=== PATIENT | female | born 1935 | race Caucasian/White ===

== ENCOUNTER → 2016-08-29 | Outpatient (CLI) | payer MEDICARE ==
[~2016-08-29] MED LIST: ASPI-892 PO; ATOR20TA66 PO; ATR20T PO; CALC-172 PO; CELEXA PO; CEPH500C PO; CETI10TA17 PO; CIPR500T4 PO; CITA10TA70 PO; CITA20TA7 PO; ESTR0.755 PO; LACT1CAP62 PO; LOSA50TA36 PO; METR500T PO; MULT-874 PO; MULT1TAB69 PO; OMEG1CAP51 PO; SENN1TAB76 PO; TIMO10DR12 OU; WARF-47 PO; WARF4TAB PO; [UNRECOGNIZED DRUG - OTHER] PO
--- NOTE | 2016-08-29 16:20 | Diagnostic Imaging Report ---
Examination: DEXA scan. Indication: osteopenia Technique: Bone mineral density estimated based on dual energy radiography over the lumbar spine and femoral necks, was performed. Findings: The lumbar spine T-score is 1.1. This is 3.7% decreased density measurements compared to 02/21/2011. T score over the left femoral neck is -1.2. This is 6.7% decreased density measurements compared to 2010. The femoral neck density measurement is probably more accurate given the degenerative sclerotic changes in the lumbar spine. The right hip could not be evaluated due to prosthesis. IMPRESSION: Osteopenia. Dictated by: Dictated on workstation # [id number]
== END ==
LOC: RAD 09:25
PROVIDERS: ATTEND Family Medicine
DX: Z13.820 Encounter for screening for osteoporosis (principal); M85.88 Other specified disorders of bone density and structure, other site
CPT/HCPCS: 77080

== ENCOUNTER → 2016-12-17 | Outpatient (CLI) | payer MEDICARE, OTHER ==
[~2016-12-17] MED LIST changes: +HYDR-3454 PO
== END ==
LOC: CARD 08:42
PROVIDERS: ATTEND Physician Assistant
DX: I65.23 Occlusion and stenosis of bilateral carotid arteries (principal); R06.00 Dyspnea, unspecified; E78.2 Mixed hyperlipidemia; I26.99 Other pulmonary embolism without acute cor pulmonale
CPT/HCPCS: 93306

== ENCOUNTER → 2016-12-30 | Outpatient (CLI) | payer MEDICARE ==
[~2016-12-30] VITALS: Ht 170.2 cm; Wt 81.6 kg
[~2016-12-30] MED LIST changes: +REGADENOSON 0.4 MG/5 ML SYR (LEXISCAN) IV ONE
[2016-12-30] MEDS: CATHETER FLUSH 10 ML SYR IV PRN ×2 (08:26→09:26)
[2016-12-30 09:24] VITALS: BP 124/62
--- NOTE | 2016-12-31 09:42 | STRESS TEST ---
DATE OF SERVICE: 12/30/2016 LEXISCAN MYOVIEW STRESS TEST REFERRING PHYSICIAN: Dr. Mckeon. Baseline heart rate is 63. Baseline blood pressure 124/62. Baseline EKG is sinus rhythm with no ischemic changes. In summary, the patient received 10.32 mCi of technetium-99 Myoview and the resting images were obtained. Then, the patient received 0.4 mg of Lexiscan followed by 31.4 mCi of technetium-99 Myoview. Throughout the test, there were no EKG changes. The resting and stress images were reviewed and compared and the short axis, horizontal long axis, and vertical long axis views. Review of the images showed breast attenuation with typical female pattern. No significant ischemia or infarction was seen. SSS is 4, SDS 4, TID value 0.96. On the gated images, the left ventricle appeared to be normal size with normal contractility. Calculated ejection fraction 72%. CONCLUSION: 1. The patient tolerated Lexiscan well. 2. Breast attenuation with typical female pattern. No significant ischemia or infarction on SPECT images. 3. Normal left ventricular size with normal contractility. Calculated ejection fraction 72%. Job ID: [id number] DocumentID: [id number] Dictated Date: 12/30/2016 18:38:27 Mobile Product Manager Date: 12/31/2016 06:48:04 Dictated By: USAMA LYONS MD
== END ==
LOC: CARD 07:55
PROVIDERS: ATTEND Physician Assistant
DX: I65.23 Occlusion and stenosis of bilateral carotid arteries (principal); R06.00 Dyspnea, unspecified; E78.2 Mixed hyperlipidemia; I26.99 Other pulmonary embolism without acute cor pulmonale
CPT/HCPCS: 78452; 93017

== ENCOUNTER 2017-02-01 16:10 | Day surgery (SDC) | payer MEDICARE ==
[~2017-02-01] VITALS: Ht 170.2 cm; Wt 80.3 kg
[~2017-02-01 16:10] MED LIST changes: -HYDR-3454 PO; -REGADENOSON 0.4 MG/5 ML SYR (LEXISCAN) IV ONE
[2017-02-01 16:25] VITALS: BP 133/89
[2017-02-01] MEDS ORDERED: INFLUENZA TRIvalent 2017-2018 0.5 ML/45 MCG SYR IM ONE (16:45)
[2017-02-01] MEDS: LACTATED RINGERS 1,000 ML IV SCH (17:46)
--- NOTE | 2017-02-01 18:04 | History & Physicial ---
History of Present Illness History of Present Illness Reason for visit/HPI pain swelling and redness around the perianal region, of 2 days duration. Date of Admission Feb 01, 2017 at 4:10 pm Date Seen by Provider: Feb 01, 2017 Time Seen by Provider: 18:02 I consulted on this patient on 02/01/17 18:01 Attending Physician Ha Marie MD Admitting Physician Rebeca Mckeon MD Consult Allergies and Home Medications Allergies Coded Allergies: adhesive tape (Verified Adverse Reaction, Intermediate, 02/01/17) blisters Home Medications Atorvastatin Calcium 20 Mg Tablet, 20 MG PO HS, (Reported) Cetirizine HCl 10 Mg Tablet, 10 MG PO DAILY, (Reported) Citalopram Hydrobromide 20 Mg Tablet, 20 MG PO DAILY, (Reported) Losartan Potassium 50 Mg Tablet, 50 MG PO DAILY, (Reported) Multivitamin 1 Each Tablet, 1 TAB PO DAILY, (Reported) Timolol Maleate 10 Ml Drops, 1 DROP OU BID, (Reported) Warfarin Sodium 4 Mg Tablet, 4 MG PO SuTuTh, (Reported) Warfarin Sodium 2 Mg Tablet, 2 MG PO MoWeFrSa, (Reported) Past Gprnnku-Gzjvpz-Yooatw Hx Patient Social History Marrital Status: Employed/Student: retired Alcohol Use: Denies Use Recreational Drug Use: No Smoking Status: Never a Smoker 2nd Hand Smoke Exposure: No Physical Abuse Screen: No Sexual Abuse: No Recent Foreign Travel: No Contact w/other who traveled: No Recent Hopitalizations: Yes Recent Infectious Disease Expo: No Immunizations Up To Date Pediatric: No Date of Pneumonia Vaccine: Feb 02, 2011 Date of Influenza Vaccine: Feb 02, 2011 Seasonal Allergies Seasonal Allergies: No Surgeries Yes (right total hip replaced, then a right hip pinning, R CTR, umb hernia) Bladder Surgery, Hysterectomy, Oophorectomy, Orthopedic, Vascular Surgery Respiratory Yes Pulmonary Embolism Currently Using CPAP: No Currently Using BIPAP: No Cardiovascular No High Cholesterol, Hypertension Neurological No Reproductive System Hx Reproductive Disorders: Yes Sexually Transmitted Disease: No HIV/AIDS: No Female Reproductive Disorders: Denies Genitourinary No Gastrointestinal Yes Diverticulosis, Polyps Musculoskeletal Yes Arthritis, Fractures Endocrine History of Endocrine Disorders: No HEENT Loss of Vision: Denies Hearing Impairment: Denies Cancer No Psychosocial History of Psychiatric Problem: No Integumentary History of Skin or Integumenta: Yes (moles removed) Blood Transfusions History of Blood Disorders: Yes (ANEMIA, POST OP BLOOD TRANSFUSION) Adverse Reaction to a Blood Tr: No Family Medical History Significant Family History: Hypertension Family Hx: Neoplasm 19 FATHER (colon cancer) 19 MOTHER (leukemia) G8 BROTHER (blood disease) Constitutional: malaise EENTM: no symptoms reported Respiratory: no symptoms reported Cardiovascular: no symptoms reported Gastrointestinal: see HPI Genitourinary: no symptoms reported Musculoskeletal: no symptoms reported Skin: lesions Psychiatric/Neurological: No Symptoms Reported Physical Exam Vital Signs Vital Sign - Last 12Hours 02/01/17 16:25 Temp 98.4 Pulse 82 Resp 20 B/P (MAP) 133/89 Pulse Ox 96 O2 Delivery Room Air Capillary Refill : General Appearance: Mild Distress HEENT: Normal ENT Inspection Neck: Normal Inspection Cardiovascular: Regular Rate, Rhythm Gastrointestinal: Non Tender, Soft Rectal: Deferred Extremity: Normal Inspection Neurologic/Psychiatric: Alert, Oriented x3 Comments swelling and redness around the perianal region, adjoining the right labia, suggestive of a perianal abscess. Assessment/Plan Assessment and Plan lady with a perianal abscess. For incision and drainage under general anesthetic. Chronic anticoagulation due to a history of pulmonary embolism Problems: Clinical Quality Measures DVT/VTE Risk/Contraindication: Risk Factor Score Per Nursin RFS Level Per Nursing on Admit: 4+=Very High HA MARIE MD Feb 01, 2017 6:04 pm
--- NOTE | 2017-02-01 18:05 | Progress Note-Pre Operative ---
Pre-Operative Progress Note H&P Reviewed The H&P was reviewed, patient examined and no changes noted. Date Seen by Provider: Feb 01, 2017 Time Seen by Provider: 18:04 Date H&P Reviewed: Feb 01, 2017 Time H&P Reviewed: 18:04 Pre-Operative Diagnosis: perianal abscess HA COTTON MD Feb 01, 2017 6:05 pm
[2017-02-01 18:13] LABS: BASOPHILS # (AUTO) 0.1 10^3/uL (0.0-0.1); BASOPHILS % (AUTO) 1 % (0-10); EOSINOPHILS # (AUTO) 0.4 10^3/uL (0.0-0.3); EOSINOPHILS % (AUTO) 3 % (0-10); LYMPHOCYTES # (AUTO) 2.2 X 10^3 (1.0-4.0); LYMPHOCYTES % (AUTO) 19 % (12-44); MEAN CORPUSCULAR HEMOGLOBIN 30 PG (25-34); MEAN CORPUSCULAR HGB CONC 33 G/DL (32-36); MEAN CORPUSCULAR VOLUME 92 FL (80-99); MEAN PLATELET VOLUME 11.5 FL (7.4-10.4); MONOCYTES # (AUTO) 1.1 X 10^3 (0.0-1.0); MONOCYTES % (AUTO) 9 % (0-12); NEUTROPHILS % (AUTO) 68 % (42-75); PLATELET COUNT 156 10^3/uL (130-400); RED BLOOD COUNT 4.01 10^6/uL (4.35-5.85); RED CELL DISTRIBUTION WIDTH 13.7 % (10.0-14.5); WHITE BLOOD COUNT 11.8 10^3/uL (4.3-11.0)
[2017-02-01 18:15] LABS: INR 2.7 (0.8-1.4); PROTHROMBIN TIME PATIENT 28.4 SEC (12.2-14.7)
[2017-02-01 18:19] LABS: BILIRUBIN,TOTAL 0.5 MG/DL (0.1-1.0); CALCIUM 10.4 MG/DL (8.5-10.1); CREATININE SERUM 1.08 MG/DL (0.60-1.30); POTASSIUM 4.1 MMOL/L (3.6-5.0); TOTAL PROTEIN 7.5 GM/DL (6.4-8.2)
[2017-02-01] MEDS ORDERED: NS (IVPB) 50 ML ONE (18:41)
[2017-02-01] MEDS ORDERED: ceFAZolin 1,000 MG (ANCEF) VIAL ONE (18:41)
[2017-02-01] MEDS ORDERED: BUP/EPI 0.5% 1:200,000 (MARCAINE) 10ML VIAL IJ ONE (19:41)
[2017-02-01] MEDS ORDERED: SEVOFLURANE (ULTANE) 15 ML INHAL SOLN ONE (19:50)
[2017-02-01] MEDS ORDERED: proPOfol 200 MG/20 ML (DIPRIVAN) VIAL IV ONE (19:50)
[2017-02-01] MEDS ORDERED: LIDOCAINE PF 2% 5 ML (XYLOCAINE) VIAL ONE (19:50)
[2017-02-01] MEDS ORDERED: fentaNYL INJECTION 100 MCG/2 ML AMP ONE (19:50)
[2017-02-01 19:57] VITALS: BP 136/74
[2017-02-01] MEDS ORDERED: ceFAZolin INJECTION 1,000 MG in NS (IVPB) 50 ML IV ONE (20:00)
[2017-02-01] MEDS ORDERED: metroNIDAZOLE 500MG/100ML IVPB 100 ML IV ONE (20:00)
[2017-02-01] MEDS ORDERED: ONDANSETRON 4 MG/2 ML (SDV) Z0FRAN ONE ×2 (20:14→20:19)
[2017-02-01] MEDS ORDERED: morphine INJ 10 MG/ML 1ML (SYR OR VIAL) ONE (20:14)
[2017-02-01] MEDS ORDERED: DEXAMETHASONE 10 MG/ML (DECADRON) 1 ML VIAL ONE (20:19)
--- NOTE | 2017-02-01 20:31 | Operative Report ---
Operative Report Date of Procedure/Surgery Feb 01, 2017 Surgeon (s) HA COTTON MD Accounts Receivable Processor (s): Not applicable Post-Operative Diagnosis Same Procedure Performed Incision and drainage Description of Procedure Anesthesia Type: General Estimated blood loss (mL): Minimal Specimen(s) collected/removed Pus for culture Description of the Procedure Indication for procedure: This lady presented with a perianal abscess to the right side of her anal margin. She was offered incision and drainage under general anesthetic. Informed consent was obtained after reviewing the operative details and highlighting the natural history of recurrence associated with the condition. Description of procedure: She was placed supine on the general anesthesia induced. Is placed and complained lithotomy position, her legs being supported on stirrups. Ancef and Flagyl were administered intravenously. After an adequate antiseptic preparation, a 2 cm vertical incision was made and the necrotic edges of the abscess cavity were excised. Pus was sent for culture and sensitivity; hemostasis was achieved using cautery and a Wyatt drain left in the abscess cavity to promote postoperative drainage. It was secured using a 2-0 silk suture and a dressing applied She tolerated the procedure well, was extubated in the operating room and taken to the recovery room in a stable condition Findings of the Procedure Not applicable Allergies and Home Medications Allergies Coded Allergies: adhesive tape (Verified Adverse Reaction, Intermediate, 02/01/17) blisters Home Medications Atorvastatin Calcium 20 Mg Tablet, 20 MG PO HS, (Reported) Cetirizine HCl 10 Mg Tablet, 10 MG PO DAILY, (Reported) Citalopram Hydrobromide 20 Mg Tablet, 20 MG PO DAILY, (Reported) Losartan Potassium 50 Mg Tablet, 50 MG PO DAILY, (Reported) Multivitamin 1 Each Tablet, 1 TAB PO DAILY, (Reported) Timolol Maleate 10 Ml Drops, 1 DROP OU BID, (Reported) Warfarin Sodium 4 Mg Tablet, 4 MG PO SuTuTh, (Reported) Warfarin Sodium 2 Mg Tablet, 2 MG PO MoWeFrSa, (Reported) HA COTTON MD Feb 01, 2017 8:31 pm
[2017-02-01] MEDS ORDERED: HYDR-3454 PO (20:34)
--- NOTE | 2017-02-01 20:36 | Discharge Inst-Simple/Standard ---
Discharge Inst-Standard Discharge Medications New, Converted or Re-Newed RX: RX on Chart Patient Instructions/Follow Up Plan of Care/Instructions/FU: Change dressing with a Maxipad once a day. Follow-up with my nurse on Friday for removal of the drain Activity as Tolerated: Yes Discharge Diet: No Restrictions HA COTTON MD Feb 01, 2017 8:36 pm
[2017-02-01] MEDS ORDERED: LACTATED RINGERS 1,000 ML IV PRN (20:40)
[2017-02-01] MEDS ORDERED: fentaNYL INJECTION 100 MCG/2 ML AMP IVP PRN (20:45)
[2017-02-01] MEDS ORDERED: HYDROcodone/APAP 5 MG/325 MG (LORTAB) TAB PO PRN (20:45)
[2017-02-01] MEDS ORDERED: ONDANSETRON 4 MG/2 ML (SDV) Z0FRAN IVP PRN (20:45)
[2017-02-01] MEDS ORDERED: morphine INJ 10 MG/ML 1ML (SYR OR VIAL) IVP PRN (20:45)
[2017-02-01] MEDS ORDERED: warFARin 2 MG (COUMADIN) TAB PO SCH (20:45)
[2017-02-01] MEDS ORDERED: ATORVASTATIN 20 MG (LIPITOR) TABLET PO SCH (21:00)
[2017-02-01 22:05] VITALS: BP 88/47
[2017-02-01 22:10] VITALS: BP 80/64
[2017-02-01 22:23] VITALS: BP 100/61
[2017-02-02] VITALS: BP 105/58
[2017-02-02 04:00] VITALS: BP 100/59
[2017-02-02] MEDS: LACTATED RINGERS 1,000 ML IV SCH (06:23)
[2017-02-02 08:54] VITALS: BP 124/70
[2017-02-02] MEDS ORDERED: LORATADINE (CLARITIN) 10 MG TAB PO SCH (09:00)
[2017-02-02] MEDS ORDERED: LOSARTAN 50 MG (COZAAR) TAB PO SCH (09:00)
[2017-02-02] MEDS ORDERED: MULTIVIT W/MINERALS TAB (THERAGRAN M) PO SCH (09:00)
[2017-02-02 09:25] VITALS: BP 124/70
[2017-02-02] MEDS ORDERED: warFARin 2 MG (COUMADIN) TAB PO SCH (18:00)
[2017-02-03] MEDS ORDERED: warFARin 2 MG (COUMADIN) TAB PO SCH (18:00)
== END 2017-02-02 09:25 | disposition home or self-care (01) ==
LOC: SDC 16:10 → 4TH 16:10 → UNDOADMOB 16:10 → SDC 02-02 09:25 → UNDODISOB 02-02 09:25
PROVIDERS: ATTEND Surgery
DX: Z79.01 Long term (current) use of anticoagulants; K61.0 Anal abscess; Z86.718 Personal history of other venous thrombosis and embolism; Z86.711 Personal history of pulmonary embolism; I10 Essential (primary) hypertension; Z79.899 Other long term (current) drug therapy; F32.9 Major depressive disorder, single episode, unspecified
CPT/HCPCS: 36415; 80053; 85025; 85610; 87070; 87075; 87081; 87205

== ENCOUNTER → 2017-02-25 | Outpatient (CLI) | payer MEDICARE ==
[~2017-02-25] MED LIST changes: +HYDR-3454 PO
--- NOTE | 2017-02-26 10:34 | Diagnostic Imaging Report ---
Bilateral screening mammogram 2D views with tomosynthesis The current study was also evaluated with a Computer Aided Detection (CAD) system. INDICATION: Screening. No current complaints stated on the questionnaire. COMPARISON: 02/23/16 FINDINGS: The breasts are composed of scattered fibroglandular densities. There are scattered benign-appearing calcifications seen. Allowing for technique and positional differences, no suspicious change is seen. IMPRESSION: No significant change. ACR BI-RADS Category 2: Benign findings. Result letter will be mailed to the patient. Note: At least 10% of breast cancer is not imaged by mammography. Dictated by: Dictated on workstation # [id number]
== END ==
LOC: RAD 09:33
PROVIDERS: ATTEND Nurse Practitioner Family
DX: Z12.31 Encounter for screening mammogram for malignant neoplasm of breast (principal)
CPT/HCPCS: 77067

== ENCOUNTER 2018-01-25 09:13 | Emergency (ER) | payer MEDICARE ==
[~2018-01-25] VITALS: Ht 170.2 cm; Wt 77.1 kg
[~2018-01-25 09:13] MED LIST changes: -CITA20TA7 PO; +CITA20TA9 PO; -LOSA50TA36 PO; +LOSA50TA7 PO
--- NOTE | 2018-01-25 09:19 | ED Fall/Injury ---
General Stated Complaint: FALL/BACK PAIN Source: patient Exam Limitations: no limitations History of Present Illness Date Seen by Provider: Jan 25, 2018 Time Seen by Provider: 09:19 Initial Comments This 83-year-old white female presents after she inadvertently slipped and fell at home striking her head and low back. Patient fell from standing position. Patient is complaining of a headache, neck pain, and low back pain. She denied trauma to the chest abdomen or extremities. Significant past medical history includes the use of Coumadin. This was started following pulmonary emboli from the patient's legs. Allergies and Home Medications Allergies Coded Allergies: adhesive tape (Verified Adverse Reaction, Intermediate, 02/01/17) blisters Home Medications Atorvastatin Calcium 20 Mg Tablet, 20 MG PO HS, (Reported) Cetirizine HCl 10 Mg Tablet, 10 MG PO DAILY, (Reported) Citalopram Hydrobromide 20 Mg Tablet, 20 MG PO DAILY, (Reported) Hydrocodone/Acetaminophen 1 Each Tablet, 1 EACH PO Q4H PRN for PAIN-MODERATE Prescribed by: HA COTTON on 02/01/172033 Losartan Potassium 50 Mg Tablet, 50 MG PO DAILY, (Reported) Multivitamin 1 Each Tablet, 1 TAB PO DAILY, (Reported) Timolol Maleate 10 Ml Drops, 1 DROP OU BID, (Reported) Warfarin Sodium 4 Mg Tablet, 4 MG PO SuTuTh, (Reported) Warfarin Sodium 2 Mg Tablet, 2 MG PO MoWeFrSa, (Reported) Patient Home Medication List Home Medication List Reviewed: Yes Review of Systems Review of Systems Constitutional: No chills, No fever Eyes: Denies Blurred Vision Ears, Nose, Mouth, Throat: denies ear pain Respiratory: No cough Cardiovascular: No chest pain Gastrointestinal: No abdominal pain, No nausea, No vomiting Genitourinary: no symptoms reported : No Musculoskeletal: back pain, neck pain Skin: No change in color, No rash Psychiatric/Neurological: No Symptoms Reported Past Wslyrug-Rcdnvs-Tqgxjy Hx Past Med/Social Hx: Reviewed Nursing Past Med/Soc Hx Patient Social History 2nd Hand Smoke Exposure: No Recent Foreign Travel: No Contact w/Someone Who Travel: No Recent Hopitalizations: Yes Immunizations Up To Date PED Vaccines UTD: No Date of Pneumonia Vaccine: Feb 02, 2011 Date of Influenza Vaccine: Feb 02, 2011 Seasonal Allergies Seasonal Allergies: No Past Medical History Surgeries: Yes (right total hip replaced, then a right hip pinning, R CTR, umb hernia) Bladder Surgery, Hysterectomy, Oophorectomy, Orthopedic, Vascular Surgery Respiratory: Yes Pulmonary Embolism Currently Using CPAP: No Currently Using BIPAP: No Cardiac: No High Cholesterol, Hypertension Neurological: No Reproductive Disorders: Yes Female Reproductive Disorders: Denies Sexually Transmitted Disease: No HIV/AIDS: No Genitourinary: No Gastrointestinal: Yes Diverticulosis, Polyps Musculoskeletal: Yes Arthritis, Fractures Endocrine: No Loss of Vision: Denies Hearing Impairment: Denies Cancer: No Psychosocial: No Integumentary: Yes (moles removed) Blood Disorders: Yes (ANEMIA, POST OP BLOOD TRANSFUSION) Adverse Reaction/Blood Tranf: No Family Medical History Neoplasm 19 FATHER (colon cancer) 19 MOTHER (leukemia) G8 BROTHER (blood disease) Hypertension Physical Exam Vital Signs Vital Signs - First Documented 01/25/18 09:17 Temp 98.2 Pulse 98 Resp 18 B/P (MAP) 150/89 (109) Pulse Ox 95 O2 Delivery Room Air Capillary Refill : Height, Weight, BMI Height: 5'7.00" Weight: 177lbs. 0.0oz. 80.112560ea; 27.7 BMI Method:Stated General Appearance: WD/WN, mild distress HEENT: normal ENT inspection, other (there was tenderness without swelling or laceration to the occiput.) Neck: other (patient's cervical collar applied upon arrival the emergency department because of her head injury and complaint of neck pain) Cardiovascular: normal peripheral pulses Respiratory: lungs clear Gastrointestinal: non tender, soft Back: other (there is tenderness palpation over the lower lumbar region.) Extremities: normal range of motion, non-tender Neurologic/Psychiatric: no motor/sensory deficits, alert Skin: normal color, warm/dry Progress/Results/Core Measures Results/Orders Lab Results Laboratory Tests Test 01/25/18 09:39 Range/Units White Blood Count 11.9 H 4.3-11.0 10^3/uL Red Blood Count 4.20 L 4.35-5.85 10^6/uL Hemoglobin 12.7 11.5-16.0 G/DL Hematocrit 38 35-52 % Mean Corpuscular Volume 90 80-99 FL Mean Corpuscular Hemoglobin 30 25-34 PG Mean Corpuscular Hemoglobin Concent 34 32-36 G/DL Red Cell Distribution Width 13.2 10.0-14.5 % Platelet Count 110 L 130-400 10^3/uL Mean Platelet Volume 12.1 H 7.4-10.4 FL Neutrophils (%) (Auto) 75 42-75 % Lymphocytes (%) (Auto) 12 12-44 % Monocytes (%) (Auto) 10 0-12 % Eosinophils (%) (Auto) 3 0-10 % Basophils (%) (Auto) 0 0-10 % Neutrophils # (Auto) 9.0 H 1.8-7.8 X 10^3 Lymphocytes # (Auto) 1.5 1.0-4.0 X 10^3 Monocytes # (Auto) 1.2 H 0.0-1.0 X 10^3 Eosinophils # (Auto) 0.3 0.0-0.3 10^3/uL Basophils # (Auto) 0.0 0.0-0.1 10^3/uL Prothrombin Time 25.6 H 12.2-14.7 SEC INR Comment 2.3 H 0.8-1.4 Sodium Level 134 L 135-145 MMOL/L Potassium Level 4.5 3.6-5.0 MMOL/L Chloride Level 102 98-107 MMOL/L Carbon Dioxide Level 23 21-32 MMOL/L Anion Gap 9 5-14 MMOL/L Blood Urea Nitrogen 10 7-18 MG/DL Creatinine 0.90 0.60-1.30 MG/DL Estimat Glomerular Filtration Rate 60 BUN/Creatinine Ratio 11 Glucose Level 105 70-105 MG/DL Calcium Level 10.5 H 8.5-10.1 MG/DL Corrected Calcium 10.4 H 8.5-10.1 MG/DL Total Bilirubin 0.7 0.1-1.0 MG/DL Aspartate Amino Transf (AST/SGOT) 35 H 5-34 U/L Alanine Aminotransferase (ALT/SGPT) 23 0-55 U/L Alkaline Phosphatase 93 40-136 U/L Troponin I < 0.30 <0.30 NG/ML Total Protein 7.2 6.4-8.2 GM/DL Albumin 4.1 3.2-4.5 GM/DL My Orders Orders - RIK HOLLINS MD Ns Iv 1000 Ml (Sodium Chloride 0.9%) (01/25/18 09:45) Ct Lumbar Spine Wo (01/25/18 09:32) Ct Pelvis Wo (01/25/18 09:32) Protime With Inr (01/25/18 09:32) Cbc With Automated Diff (01/25/18 09:32) Comprehensive Metabolic Panel (01/25/18 09:32) Ekg Tracing (01/25/18 09:32) Troponin I (01/25/18 09:32) Fentanyl Injection (Sublimaze Injection (01/25/18 09:45) Ct Head/Cervical Spine Wo (01/25/18 09:32) Medications Given in ED Current Medications Medications Dose Ordered Sig/Brent Route Start Time Stop Time Status Last Admin Dose Admin Fentanyl Citrate 50 mcg ONCE ONCE IVP 01/25/18 09:45 01/25/18 09:46 DC 01/25/18 09:46 50 MCG Vital Signs/I&O 01/25/18 09:17 Temp 98.2 Pulse 98 Resp 18 B/P (MAP) 150/89 (109) Pulse Ox 95 O2 Delivery Room Air Progress Progress Note : Time: 11:[address] of the head, neck, pelvis, and lumbar spine films failed to demonstrate evidence of acute fracture or pathology. Patient's INR was 2.3. EKG demonstrated a normal sinus rhythm without dysrhythmia. Departure Impression Primary Impression: Closed head injury Qualified Codes: S09.90XA - Unspecified injury of head, initial encounter Additional Impression: Contusion of lower back Qualified Codes: S30.0XXA - Contusion of lower back and pelvis, initial encounter Disposition: 01 HOME, SELF-CARE Condition: Improved Departure-Patient Inst. Decision time for Depature: 11:49 Referrals: AJITH MCKEON MD (PCP/Family) Primary Care Physician Patient Instructions: Concussion, Adult (DC) Add. Discharge Instructions: Rest at home today. Follow-up with Dr. Mckeon tomorrow. Return of any problems. Hydrocodone with Tylenol for pain. RIK HOLLINS MD Jan 25, 2018 09:19
[2018-01-25] MEDS ORDERED: NS IV 1000 ML 1,000 ML IV SCH (09:45)
[2018-01-25] MEDS ORDERED: fentaNYL INJECTION 100 MCG/2 ML AMP IVP ONE (09:45)
[2018-01-25 10:06] LABS: BASOPHILS % (AUTO) 0 % (0-10); EOSINOPHILS # (AUTO) 0.3 10^3/uL (0.0-0.3); EOSINOPHILS % (AUTO) 3 % (0-10); HEMATOCRIT 38 % (35-52); HEMOGLOBIN 12.7 G/DL (11.5-16.0); LYMPHOCYTES # (AUTO) 1.5 X 10^3 (1.0-4.0); LYMPHOCYTES % (AUTO) 12 % (12-44); MEAN CORPUSCULAR HEMOGLOBIN 30 PG (25-34); MEAN CORPUSCULAR HGB CONC 34 G/DL (32-36); MEAN CORPUSCULAR VOLUME 90 FL (80-99); MEAN PLATELET VOLUME 12.1 FL (7.4-10.4); MONOCYTES # (AUTO) 1.2 X 10^3 (0.0-1.0); MONOCYTES % (AUTO) 10 % (0-12); NEUTROPHILS % (AUTO) 75 % (42-75); PLATELET COUNT 110 10^3/uL (130-400); RED CELL DISTRIBUTION WIDTH 13.2 % (10.0-14.5); WHITE BLOOD COUNT 11.9 10^3/uL (4.3-11.0)
[2018-01-25 10:18] LABS: INR 2.3 (0.8-1.4); PROTHROMBIN TIME PATIENT 25.6 SEC (12.2-14.7)
--- NOTE | 2018-01-25 10:18 | Diagnostic Imaging Report ---
PROCEDURE: CT head and CT cervical spine without contrast. TECHNIQUE: Multiple contiguous axial images were obtained through the brain and cervical spine without the use of intravenous contrast. Sagittal and coronal reformations through the cervical spine were then performed. INDICATION: Dizzy. Fell. The ventricles are normal in size, shape and position. There are age-related senescent changes present. There is no acute parenchymal hemorrhage, edema or mass. There is no extra-axial mass or hemorrhage. There is no skull fracture. There is normal height and alignment of the cervical vertebral bodies. There is disc space narrowing and spondylosis at C5-6 causing bilateral foraminal narrowing with mild central canal encroachment. No fracture or other acute abnormality seen. IMPRESSION: CT of the head shows no acute abnormality. CT of the cervical spine shows degenerative changes with no acute abnormality. Dictated by: Dictated on workstation # [id number]
--- NOTE | 2018-01-25 10:21 | Diagnostic Imaging Report ---
PROCEDURE: CT pelvis without contrast. TECHNIQUE: Multiple contiguous axial images were obtained through the pelvis without the use of intravenous contrast. Sagittal and coronal reformations were performed. INDICATION: Pelvic pain after fall Comparison: CT from 11/09/2015. Findings: There is a right total hip arthroplasty which causes significant streak artifact. No hardware complication is seen. There is diffuse osteopenia. Minimal cortical irregularity along the left inferior pubic ramus is chronic, not consistent with acute fracture. No acute fracture is seen. There is severe osteoarthritis in the left hip joint, with complete joint space loss, subchondral sclerosis and cystlike changes and prominent osteophytes. There is also marked degenerative change in the lower lumbar spine with very prominent facet arthropathy, as well as marked degenerative disc disease at L4-5 with grade 1 anterolisthesis. There is extensive diverticulosis of the colon without findings of diverticulitis. No free fluid or free air seen in the pelvis. There is calcific atherosclerosis. There is a fatty density in the left proximal quadriceps region which may represent a lipoma measuring 3 cm x 3 cm in size, and stable since the prior exam. Impression: 1. Osteopenia with no acute fractures seen. 2. Total right hip arthroplasty without hardware complication seen. 3. Severe degenerative changes in the left hip and lower lumbar spine. Dictated by: Dictated on workstation # [id number]
[2018-01-25 10:28] LABS: ALANINE AMINOTRANSFERASE 23 U/L (0-55); ALBUMIN 4.1 GM/DL (3.2-4.5); ALKALINE PHOSPHATASE 93 U/L (40-136); BILIRUBIN,TOTAL 0.7 MG/DL (0.1-1.0); BUN/CREATININE RATIO 11; CALCIUM 10.5 MG/DL (8.5-10.1); CARBON DIOXIDE 23 MMOL/L (21-32); CHLORIDE 102 MMOL/L (98-107); GFR ESTIMATED 60; GLUCOSE 105 MG/DL (70-105); POTASSIUM 4.5 MMOL/L (3.6-5.0); SODIUM 134 MMOL/L (135-145); TOTAL PROTEIN 7.2 GM/DL (6.4-8.2)
--- NOTE | 2018-01-25 10:29 | Diagnostic Imaging Report ---
PROCEDURE: CT lumbar spine without contrast. TECHNIQUE: Multiple contiguous axial images were obtained through the lumbar spine without the use of intravenous contrast. Sagittal and coronal reformations were then performed. INDICATION: Fall. Back pain There is normal height of the lumbar vertebral bodies. There is diffuse degenerative disc and facet disease present. There is at least some disc space narrowing at all levels but is most pronounced in the lower lumbar spine. There is a central canal stenosis at L4-5 from a grade 1 spondylolisthesis, bulging of the disc and hypertrophy of the facets. No fracture or other acute abnormality is seen. IMPRESSION: There are degenerative changes present with no fracture or other acute abnormality seen. Dictated by: Dictated on workstation # [id number]
[2018-01-25 11:56] VITALS: BP 158/68
== END 2018-01-25 11:56 | disposition home or self-care (01) ==
LOC: EDUNIT# 09:13 → ER 09:13
DX: S09.90XA Unspecified injury of head, initial encounter (principal); S30.0XXA Contusion of lower back and pelvis, initial encounter; E78.00 Pure hypercholesterolemia, unspecified; I10 Essential (primary) hypertension; D64.9 Anemia, unspecified; Z86.010 Personal history of colon polyps; Z91.048 Other nonmedicinal substance allergy status; Z96.641 Presence of right artificial hip joint; Z90.710 Acquired absence of both cervix and uterus; Z80.0 Family history of malignant neoplasm of digestive organs; Z87.19 Personal history of other diseases of the digestive system; Z79.01 Long term (current) use of anticoagulants; Z86.711 Personal history of pulmonary embolism; W01.10XA Fall on same level from slipping, tripping and stumbling with subsequent striking against unspecified object, initial encounter; Y92.009 Unspecified place in unspecified non-institutional (private) residence as the place of occurrence of the external cause
CPT/HCPCS: 36415; 70450; 72125; 72131; 72192; 80053; 84484; 85025; 85610; 93005; 96361; 96374

== ENCOUNTER → 2018-03-03 | Outpatient (CLI) | payer MEDICARE ==
--- NOTE | 2018-03-03 12:52 | Diagnostic Imaging Report ---
INDICATION: Routine screening. COMPARISON: 02/25/2017 and 02/23/2016. TECHNIQUE: 2D and 3D bilateral screening mammography was performed with CAD. FINDINGS: Both breasts remain heterogeneously dense, limiting the sensitivity of mammography. There are scattered benign-appearing calcifications in both breasts. Nodular density in the outer portion of the right breast at mid depth on the CC view appears stable and most consistent with a benign etiology. A cluster of microcalcifications in the outer portion of the left breast, best seen on the CC view at mid depth, appears to be stable. No spiculated mass or malignant appearing microcalcifications are seen. The axillae are unremarkable. IMPRESSION: No mammographic features suspicious for malignancy are identified. ACR BI-RADS Category 2: Benign findings. Result letter will be mailed to the patient. Note: At least 10% of breast cancer is not imaged by mammography. Dictated by: Dictated on workstation # [id number]
== END ==
LOC: RAD 09:31
PROVIDERS: ATTEND Nurse Practitioner Family
DX: Z12.31 Encounter for screening mammogram for malignant neoplasm of breast (principal)
CPT/HCPCS: 77067

== ENCOUNTER → 2018-11-17 | Outpatient (CLI) | payer MEDICARE ==
[~2018-11-17] MED LIST changes: -HYDR-3454 PO; +HYDR-3455 PO; +LOSA50TA63 PO; -LOSA50TA7 PO
--- NOTE | 2018-11-17 12:38 | Diagnostic Imaging Report ---
PROCEDURE: US Thyroid. TECHNIQUE: Multiple real-time grayscale images were obtained of the thyroid in various projections. INDICATION: Hyperthyroidism. FINDINGS: No comparison available. The right lobe of thyroid measures 3.6 x 1.3 x 1.5 cm. No nodules are seen. The left lobe of the thyroid measures 3.7 x 2.0 x 1.8 cm. The echogenicity is heterogeneous. No suspicious nodules are seen. The isthmus measures 3 mm. No soft tissue abnormality is seen in the neck. IMPRESSION: 1. No suspicious thyroid nodules. Dictated by: Dictated on workstation # [id number]
== END ==
LOC: RAD 11:04
PROVIDERS: ATTEND Nurse Practitioner Family
DX: E05.90 Thyrotoxicosis, unspecified without thyrotoxic crisis or storm (principal); E03.9 Hypothyroidism, unspecified
CPT/HCPCS: 76536

== ENCOUNTER → 2019-03-09 | Outpatient (CLI) | payer MEDICARE ==
--- NOTE | 2019-03-09 11:19 | Diagnostic Imaging Report ---
INDICATION: Screening The current study was also evaluated with a Computer Aided Detection (CAD) system. 3-D Tomographic imaging was also performed. INDICATION: Screening. Comparison made with prior examination of 03/03/2018, 02/25/2017 and 02/23/2016 FINDINGS: There are scattered fibroglandular densities bilaterally. There are benign type calcifications. There is no dominant mass, spiculated lesions or suspicious calcification identified. Skin, nipples and axilla are unremarkable. IMPRESSION: Category 2 benign. ACR BI-RADS Category 2: Benign findings. Result letter will be mailed to the patient. Note: At least 10% of breast cancer is not imaged by mammography. Dictated by: Dictated on workstation # [id number]
== END ==
LOC: RAD 09:33
PROVIDERS: ATTEND Nurse Practitioner Family
DX: Z12.31 Encounter for screening mammogram for malignant neoplasm of breast (principal)
CPT/HCPCS: 77067

== ENCOUNTER → 2020-04-05 | Outpatient (CLI) | payer MEDICARE ==
[~2020-04-05] MED LIST changes: +MULT-567 PO; -MULT1TAB69 PO
--- NOTE | 2020-04-05 14:16 | Diagnostic Imaging Report ---
INDICATION: Routine screening. COMPARISON: 03/09/2019 and 03/03/2018. TECHNIQUE: 2D and 3D bilateral screening mammography was performed with CAD. FINDINGS: Scattered fibroglandular densities are identified bilaterally. The overall parenchymal pattern appears to be stable. There are scattered benign calcifications. No dominant mass or malignant appearing microcalcifications are seen. The axillae are unremarkable. IMPRESSION: No mammographic features suspicious for malignancy are identified. ACR BI-RADS Category 2: Benign findings. Result letter will be mailed to the patient. Note: At least 10% of breast cancer is not imaged by mammography. Dictated by: Dictated on workstation # [id number]
== END ==
LOC: RAD 10:30
PROVIDERS: ATTEND Nurse Practitioner Family
DX: Z12.31 Encounter for screening mammogram for malignant neoplasm of breast (principal)
CPT/HCPCS: 77063; 77067

== ENCOUNTER 2020-08-11 17:49 | Inpatient (IN) | payer MEDICARE ==
[~2020-08-11] VITALS: Ht 167 cm; Wt 81.8 kg
[~2020-08-11 17:49] MED LIST changes: -CIPR500T4 PO; +CIPR500T5 PO
[2020-08-11] MEDS ORDERED: IBUPROFEN TABLET 200 MG TAB PO ONE (18:15)
[2020-08-11] MEDS ORDERED: ACETAMINOPHEN 325 MG TABLET PO ONE (18:15)
[2020-08-11] MEDS ORDERED: ONDANSETRON 4 MG/2 ML (SDV) Z0FRAN IVP ONE (18:15)
[2020-08-11] MEDS ORDERED: NS IV 500 ML 500 ML IV SCH (18:15)
--- NOTE | 2020-08-11 18:16 | ED General ---
General Stated Complaint: FEVER/COUGH/VOMITING Source of Information: Patient Exam Limitations: No Limitations History of Present Illness Date Seen by Provider: Aug 11, 2020 Time Seen by Provider: 18:04 Initial Comments To ER with reports of fever, vomiting, cough began on Friday of this week, 08/08/2020. She has not been Covid vaccinated nor has she had Covid. Primary care is Dr. Penn. She states that she would like to be resuscitated and on a ventilator if those things would become necessary. On arrival oxygen saturation is 85% room air and she does not wear oxygen at home. Timing/Duration: 3-4 Days Severity: Moderate Associated Systoms: Cough, Nausea/Vomiting Allergies and Home Medications Allergies Coded Allergies: adhesive tape (Verified Adverse Reaction, Intermediate, 02/01/17) blisters Home Medications Atorvastatin Calcium 20 Mg Tablet, 20 MG PO HS, (Reported) Cetirizine HCl 10 Mg Tablet, 10 MG PO DAILY, (Reported) Citalopram Hydrobromide 20 Mg Tablet, 20 MG PO DAILY, (Reported) Hydrocodone/Acetaminophen 1 Each Tablet, 1 EACH PO Q4H PRN for PAIN-MODERATE Prescribed by: HA COTTON on 02/01/172033 Losartan Potassium 50 Mg Tablet, 50 MG PO DAILY, (Reported) Multivitamin 1 Each Tablet, 1 TAB PO DAILY, (Reported) Timolol Maleate 10 Ml Drops, 1 DROP OU BID, (Reported) Warfarin Sodium 4 Mg Tablet, 4 MG PO SuTuTh, (Reported) Warfarin Sodium 2 Mg Tablet, 2 MG PO MoWeFrSa, (Reported) Patient Home Medication List Home Medication List Reviewed: Yes Review of Systems Review of Systems Constitutional: see HPI, chills, fever EENTM: see HPI Respiratory: see HPI, cough Cardiovascular: no symptoms reported Genitourinary: no symptoms reported Musculoskeletal: no symptoms reported Skin: no symptoms reported Psychiatric/Neurological: No Symptoms Reported Hematologic/Lymphatic: No Symptoms Reported Immunological/Allergic: no symptoms reported Past Qzhdswy-Dexdho-Pbyuyi Hx Patient Social History 2nd Hand Smoke Exposure: No Recent Hopitalizations: Yes Immunizations Up To Date Tetanus Booster (TDap): Unknown PED Vaccines UTD: No Date of Pneumonia Vaccine: Feb 02, 2011 Date of Influenza Vaccine: Feb 02, 2011 Seasonal Allergies Seasonal Allergies: No Past Medical History Surgeries: Yes (right total hip replaced, then a right hip pinning, R CTR, umb hernia) Bladder Surgery, Hysterectomy, Oophorectomy, Orthopedic, Vascular Surgery Respiratory: Yes Pulmonary Embolism Currently Using CPAP: No Currently Using BIPAP: No Cardiac: No High Cholesterol, Hypertension Neurological: No Reproductive Disorders: Yes Female Reproductive Disorders: Denies Sexually Transmitted Disease: No HIV/AIDS: No Genitourinary: No Gastrointestinal: Yes Diverticulosis, Polyps Musculoskeletal: Yes Arthritis, Fractures Endocrine: No Loss of Vision: Denies Hearing Impairment: Denies Cancer: No Psychosocial: No Integumentary: Yes (moles removed) Blood Disorders: Yes (ANEMIA, POST OP BLOOD TRANSFUSION) Adverse Reaction/Blood Tranf: No Family Medical History Neoplasm 19 FATHER (colon cancer) 19 MOTHER (leukemia) G8 BROTHER (blood disease) Hypertension Physical Exam Vital Signs Vital Signs - First Documented 08/11/20 17:55 Temp 38.5 Pulse 80 Resp 16 B/P (MAP) 116/98 (104) Pulse Ox 85 O2 Delivery Room Air Capillary Refill : Height, Weight, BMI Height: 5'7.00" Weight: 170lbs. 0.0oz. 77.460128lc; 27.7 BMI Method:Stated General Appearance: No Apparent Distress, WD/WN, Other (she is alert but weak appearing. Heart rate is 81 sinus rhythm 94% on 2 L of supplemental oxygen with respiratory rate of 19. Blood pressure 180/92. There is no jugular vein distention.) Eyes: Bilateral Eye Normal Inspection, Bilateral Eye PERRL, Bilateral Eye EOMI Neck: Full Range of Motion, Normal Inspection Respiratory: No Accessory Muscle Use, No Respiratory Distress, Rhonci Cardiovascular: Normal Peripheral Pulses Neurologic/Psychiatric: Alert, Oriented x3 Skin: Normal Color, Warm/Dry Focused Exam Lactate Level 08/11/20 18:05: Lactic Acid Level 1.12 Lactic Acid Level Laboratory Tests Test 08/11/20 18:05 Lactic Acid Level 1.12 MMOL/L (0.50-2.00) Progress/Results/Core Measures Suspected Sepsis SIRS Temperature: Pulse: Respiratory Rate: Laboratory Tests 08/11/20 18:05: White Blood Count 11.4H Blood Pressure / Mean: 08/11/20 18:05: Lactic Acid Level 1.12 Laboratory Tests 08/11/20 18:05: Creatinine 1.21, INR Comment 2.4H, Platelet Count 135, Total Bilirubin 0.6 Results/Orders Lab Results Laboratory Tests Test 08/11/20 18:05 08/11/20 18:10 Range/Units White Blood Count 11.4 H 4.3-11.0 10^3/uL Red Blood Count 4.08 3.80-5.11 10^6/uL Hemoglobin 12.4 11.5-16.0 g/dL Hematocrit 38 35-52 % Mean Corpuscular Volume 93 80-99 fL Mean Corpuscular Hemoglobin 30 25-34 pg Mean Corpuscular Hemoglobin Concent 33 32-36 g/dL Red Cell Distribution Width 13.4 10.0-14.5 % Platelet Count 135 130-400 10^3/uL Mean Platelet Volume 11.2 9.0-12.2 fL Immature Granulocyte % (Auto) 0 % Neutrophils (%) (Auto) 82 H 42-75 % Lymphocytes (%) (Auto) 7 L 12-44 % Monocytes (%) (Auto) 8 0-12 % Eosinophils (%) (Auto) 2 0-10 % Basophils (%) (Auto) 1 0-10 % Neutrophils # (Auto) 9.3 H 1.8-7.8 10^3/uL Lymphocytes # (Auto) 0.8 L 1.0-4.0 10^3/uL Monocytes # (Auto) 0.9 0.0-1.0 10^3/uL Eosinophils # (Auto) 0.2 0.0-0.3 10^3/uL Basophils # (Auto) 0.1 0.0-0.1 10^3/uL Immature Granulocyte # (Auto) 0.0 0.0-0.1 10^3/uL Neutrophils % (Manual) 87 % Lymphocytes % (Manual) 4 % Monocytes % (Manual) 6 % Eosinophils % (Manual) 3 % Blood Morphology Comment NORMAL Prothrombin Time 26.1 H 12.2-14.7 SEC INR Comment 2.4 H 0.8-1.4 D-Dimer 0.42 0.00-0.49 UG/ML Sodium Level 132 L 135-145 MMOL/L Potassium Level 4.0 3.6-5.0 MMOL/L Chloride Level 100 98-107 MMOL/L Carbon Dioxide Level 22 21-32 MMOL/L Anion Gap 10 5-14 MMOL/L Blood Urea Nitrogen 11 7-18 MG/DL Creatinine 1.21 0.60-1.30 MG/DL Estimat Glomerular Filtration Rate 42 BUN/Creatinine Ratio 9 Glucose Level 134 H 70-105 MG/DL Lactic Acid Level 1.12 0.50-2.00 MMOL/L Calcium Level 9.8 8.5-10.1 MG/DL Corrected Calcium 9.6 8.5-10.1 MG/DL Total Bilirubin 0.6 0.1-1.0 MG/DL Aspartate Amino Transf (AST/SGOT) 22 5-34 U/L Alanine Aminotransferase (ALT/SGPT) 23 0-55 U/L Alkaline Phosphatase 90 40-136 U/L C-Reactive Protein High Sensitivity 1.65 H 0.00-0.50 MG/DL B-Type Natriuretic Peptide 92.1 <100.0 PG/ML Total Protein 7.6 6.4-8.2 GM/DL Albumin 4.2 3.2-4.5 GM/DL Procalcitonin 0.08 <0.10 NG/ML Coronavirus 2019 (ISIDRO) Negative Negative Urine Color YELLOW Urine Clarity CLEAR Urine pH 6.5 5-9 Urine Specific [place] 1.010 L 1.016-1.022 Urine Protein NEGATIVE NEGATIVE Urine Glucose (UA) NEGATIVE NEGATIVE Urine Ketones NEGATIVE NEGATIVE Urine Nitrite NEGATIVE NEGATIVE Urine Bilirubin NEGATIVE NEGATIVE Urine Urobilinogen 0.2 < = 1.0 MG/DL Urine Leukocyte Esterase 1+ H NEGATIVE Urine RBC (Auto) NEGATIVE NEGATIVE Urine RBC NONE /HPF Urine WBC 10-25 H /HPF Urine Squamous Epithelial Cells NONE /HPF Urine Crystals NONE /LPF Urine Bacteria LARGE H /HPF Urine Casts NONE /LPF Urine Mucus NEGATIVE /LPF Urine Culture Indicated YES Micro Results Microbiology 08/11/20 Influenza Types A,B Antigen (HILARIA) - Final, Complete My Orders Orders - ARUNA VALDIVIA PIPE STRAIGHTENER Cbc With Automated Diff (08/11/20 18:11) Hs C Reactive Protein (08/11/20 18:11) Fibrin Degradation Products (08/11/20 18:11) Comprehensive Metabolic Panel (08/11/20 18:11) BNP (08/11/20 18:11) Chest 1 View, Ap/Pa Only (08/11/20 18:11) Influenza A And B Antigens (08/11/20 18:11) Covid 19 Inhouse Test (08/11/20 18:11) Ed Iv/Invasive Line Start (08/11/20 18:11) Blood Culture (08/11/20 18:11) Lactic Acid Analyzer (08/11/20 18:11) Acetaminophen Tablet/Caplet (Tylenol T (08/11/20 18:15) Ibuprofen Tablet (Motrin Tablet) (08/11/20 18:15) Ondansetron Injection (Zofran Injectio (08/11/20 18:15) Ns Iv 500 Ml (Sodium Chloride 0.9%) (08/11/20 18:15) Protime With Inr (08/11/20 18:11) Ua Culture If Indicated (08/11/20 18:20) Procalcitonin (Pct) (08/11/20 18:20) Manual Differential (08/11/20 18:05) Urine Culture (08/11/20 18:10) Coronavirus Sars-Cov-2 So 2018 (08/11/20 18:48) Medications Given in ED Current Medications Medications Dose Ordered Sig/Brent Route Start Time Stop Time Status Last Admin Dose Admin Acetaminophen 650 mg ONCE ONCE PO 08/11/20 18:15 08/11/20 18:16 DC 08/11/20 18:22 650 MG Ibuprofen 600 mg ONCE ONCE PO 08/11/20 18:15 08/11/20 18:16 DC 08/11/20 18:22 600 MG Ondansetron HCl 8 mg ONCE ONCE IVP 08/11/20 18:15 08/11/20 18:16 DC 08/11/20 18:22 8 MG Vital Signs/I&O 08/11/20 17:55 Temp 38.5 Pulse 80 Resp 16 B/P (MAP) 116/98 (104) Pulse Ox 85 O2 Delivery Room Air Capillary Refill : Diagnostic Imaging Diagonstic Imaging: Xray Comments NAME: DELORIS NGUYEN MED REC#: [id number] PT STATUS: REG ER : 1935 PHYSICIAN: ARUNA VALDIVIA APRN ADMIT DATE: 08/11/20/ER Draft Date of Exam:08/11/20 CHEST 1 VIEW, AP/PA ONLY EXAMINATION: Portable erect AP chest at 6:42 p.m. INDICATION: Cough. This study is less than optimal as the exam is taken in shallow inspiration and the patient is slightly rotated. Allowing for these technical factors the heart is stable in size when compared to the prior exam of 11/16/2015. In the interval since the prior study mild atelectasis/infiltrate has developed in the right infrahilar region. The lungs are otherwise generally clear although the left retrocardiac region is not well penetrated. The mediastinum is not widened. The osseous structures are intact. IMPRESSION: 1. There is mild atelectasis/infiltrate in the right infrahilar region. There is no acute abnormality identified otherwise. 2. If further study is desired, then a follow-up PA and lateral chest would be recommended. Dictated on workstation # [id number] Dict: 08/11/20 1849 Trans: 08/11/20 1853 [facility] [id number] Interpreted by: GUADALUPE HICKS MD Electronically signed by: Departure Communication (Admissions) [id number] with Dr Lepe file conversion operator for Dr Penn. will admit, rocephin+zmax and continue covid precautions pending send out result Impression Primary Impression: UTI (urinary tract infection) Additional Impressions: Pneumonia Person under investigation for COVID-19 Disposition: ADMITTED INPATIENT Condition: Stable Admissions Decision to Admit Reason: Admit from ER (General) Decision to Admit/Date: Aug 11, 2020 Time/Decision to Admit Time: 19:00 Departure-Patient Inst. Referrals: AJITH PENN MD (PCP/Family) Primary Care Physician ARUNA VALDIVIA APRN Aug 11, 2020 18:16
[2020-08-11 18:21] LABS: EOSINOPHILS % (AUTO) 2 % (0-10); HEMATOCRIT 38 % (35-52); HEMOGLOBIN 12.4 g/dL (11.5-16.0); MEAN CORPUSCULAR HGB CONC 33 g/dL (32-36); PLATELET COUNT 135 10^3/uL (130-400)
[2020-08-11 18:23] LABS: BASOPHILS # (AUTO) 0.1 10^3/uL (0.0-0.1); BASOPHILS % (AUTO) 1 % (0-10); EOSINOPHILS # (AUTO) 0.2 10^3/uL (0.0-0.3); LYMPHOCYTES # (AUTO) 0.8 10^3/uL (1.0-4.0); LYMPHOCYTES % (AUTO) 7 % (12-44); MEAN CORPUSCULAR HEMOGLOBIN 30 pg (25-34); MEAN CORPUSCULAR VOLUME 93 fL (80-99); MEAN PLATELET VOLUME 11.2 fL (9.0-12.2); MONOCYTES # (AUTO) 0.9 10^3/uL (0.0-1.0); MONOCYTES % (AUTO) 8 % (0-12); NEUTROPHILS # (AUTO) 9.3 10^3/uL (1.8-7.8); NEUTROPHILS % (AUTO) 82 % (42-75); WHITE BLOOD COUNT 11.4 10^3/uL (4.3-11.0)
[2020-08-11 18:30] LABS: ALBUMIN 4.2 GM/DL (3.2-4.5)
[2020-08-11 18:32] LABS: BILIRUBIN,URINE NEGATIVE (NEGATIVE); CLARITY,URINE CLEAR; COLOR,URINE YELLOW; GLUCOSE, URINE (UA) NEGATIVE (NEGATIVE); KETONES,URINE NEGATIVE (NEGATIVE); LEUKOCYTE ESTERASE ,URINE 1+ (NEGATIVE); NITRITE,URINE NEGATIVE (NEGATIVE); PH,URINE 6.5 (5-9); PROTEIN,URINE NEGATIVE (NEGATIVE)
[2020-08-11 18:32] LABS: CALCIUM 9.8 MG/DL (8.5-10.1)
[2020-08-11 18:33] LABS: TOTAL PROTEIN 7.6 GM/DL (6.4-8.2)
[2020-08-11 18:35] LABS: BILIRUBIN,TOTAL 0.6 MG/DL (0.1-1.0)
[2020-08-11 18:37] LABS: CREATININE SERUM 1.21 MG/DL (0.60-1.30); FIBRIN DEGRADATION PRODUCTS 0.42 UG/ML (0.00-0.49); INR 2.4 (0.8-1.4); PROTHROMBIN TIME PATIENT 26.1 SEC (12.2-14.7)
[2020-08-11 18:40] LABS: EOSINOPHILS % (MANUAL) 3 %; LYMPHOCYTES % (MANUAL) 4 %; MONOCYTES % (MANUAL) 6 %; NEUTROPHILS % (MANUAL) 87 %; RBC MORPH NORMAL
[2020-08-11 18:42] LABS: BACTERIA,URINE LARGE /HPF
--- NOTE | 2020-08-11 18:53 | Diagnostic Imaging Report ---
EXAMINATION: Portable erect AP chest at 6:42 p.m. INDICATION: Cough. This study is less than optimal as the exam is taken in shallow inspiration and the patient is slightly rotated. Allowing for these technical factors the heart is stable in size when compared to the prior exam of 11/16/2015. In the interval since the prior study mild atelectasis/infiltrate has developed in the right infrahilar region. The lungs are otherwise generally clear although the left retrocardiac region is not well penetrated. The mediastinum is not widened. The osseous structures are intact. IMPRESSION: 1. There is mild atelectasis/infiltrate in the right infrahilar region. There is no acute abnormality identified otherwise. 2. If further study is desired, then a follow-up PA and lateral chest would be recommended. Dictated by: Dictated on workstation # [id number]
[2020-08-11] MEDS ORDERED: cefTRIAXone FOR IV USE 1,000 MG in WATER (STERILE) FOR INJECTION 10 ML IV ONE (19:45)
[2020-08-11] MEDS ORDERED: LACTATED RINGERS 1,000 ML IV ONE (20:05)
[2020-08-11] MEDS ORDERED: AZITHROMYCIN 500 MG/NS 250 ML IVPB IV NR ×2 (20:15)
[2020-08-11] MEDS ORDERED: CATHETER FLUSH 10 ML SYR IV PRN (20:15)
[2020-08-11] MEDS ORDERED: ONDANSETRON 4 MG/2 ML (SDV) Z0FRAN IV PRN (20:15)
[2020-08-11] MEDS: LACTATED RINGERS 1,000 ML IV SCH (20:33)
[2020-08-11 22:33] VITALS: BP 112/72
[2020-08-11] MEDS ORDERED: RT-ALBUTEROL INHALER HFA (VENTOLIN HFA) 18 GM IH PRN (22:45)
[2020-08-12] MEDS: LACTATED RINGERS 1,000 ML IV SCH ×3 (04:20→20:09)
[2020-08-12] MEDS ORDERED: WARF3TAB56 PO (08:39)
[2020-08-12] MEDS: AZITHROMYCIN 250 MG TAB (ZITHROMAX) PO SCH (08:40)
[2020-08-12] MEDS ORDERED: BRIM5DRO OU (11:08)
[2020-08-12] MEDS ORDERED: LATA7.5D OU (11:08)
[2020-08-12] MEDS ORDERED: NF-DOR2% OU (11:08)
[2020-08-12] MEDS ORDERED: methylPREDNISolone 40 MG/ML (Solu-MEDROL) VIAL IV ONE (12:15)
--- NOTE | 2020-08-12 12:25 | History & Physical ---
History of Present Illness History of Present Illness Reason for visit/HPI This is an 85 year old female patient of Dr. 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 She was hypoxic when she presented to the emergency room with an O2 sat of 85% on room air. She was placed on oxygen. She was found to have a right perihilar infiltrate on CXR as well as as a UTI. She has not had the COVID vaccine and her rapid COVID is negative but a send out COVID will also be done. She will be admitted to cardiac stepdown with rocephin and zithromax, oxygen, albuterol MDI and we will also resume her home meds including coumadin. Date of Admission Aug 11, 2020 at 19:16 Date Seen by a Provider: Aug 12, 2020 Time Seen by a Provider: 12:19 I consulted on this patient on 08/12/20 12:19 Attending Physician Carlos Michel DO Admitting Physician Rebeca Mckeon MD Consult Allergies and Home Medications Allergies Coded Allergies: adhesive tape (Verified Adverse Reaction, Intermediate, 02/01/17) blisters Home Medications Atorvastatin Calcium 20 Mg Tablet, 20 MG PO HS, (Reported) Brimonidine Tartrate/Timolol 5 Ml Drops, 5 ML OU DAILY, (Reported) Cetirizine HCl 10 Mg Tablet, 10 MG PO DAILY, (Reported) Citalopram Hydrobromide 20 Mg Tablet, 20 MG PO DAILY, (Reported) Dorzolamide HCl 10 Ml Drops, 2 % OD DAILY, (Reported) Latanoprost/Pf 7.5 Ml Drops, 0.005 % OU BID, (Reported) Multivitamin 1 Each Tablet, 1 TAB PO DAILY, (Reported) Timolol Maleate 10 Ml Drops, 1 DROP OU BID, (Reported) Warfarin Sodium 3 Mg Tablet, 3 MG PO DAILY, (Reported) Patient Home Medication List Home Medication List Reviewed: Yes Past Mrreqvx-Fizjip-Odsbcl Hx Past Med/Social Hx: Reviewed Nursing Past Med/Soc Hx Patient Social History Alcohol Use: Denies Use Recreational Drug Use: No Smoking Status: Never a Smoker 2nd Hand Smoke Exposure: No Recent Foreign Travel: No Contact w/other who traveled: No Recent Hopitalizations: Yes Recent Infectious Disease Expo: No Immunizations Up To Date Tetanus Booster (TDap): Unknown Pediatric: No Date of Pneumonia Vaccine: Feb 02, 2011 Date of Influenza Vaccine: Feb 03, 2020 Seasonal Allergies Seasonal Allergies: No Past Medical History Surgeries: Bladder Surgery, Hysterectomy, Oophorectomy, Orthopedic, Vascular Surgery Respiratory: Pulmonary Embolism Currently Using CPAP: No Currently Using BIPAP: No Cardiac: High Cholesterol, Hypertension Reproductive: Yes Sexually Transmitted Disease: No HIV/AIDS: No Female Reproductive Disorders: Denies Gastrointestinal: Diverticulosis, Polyps Musculoskeletal: Arthritis, Fractures Loss of Vision: Denies Hearing Impairment: Denies History of Blood Disorders: Yes (ANEMIA, POST OP BLOOD TRANSFUSION) Adverse Reaction to Blood Chu: No Family History Neoplasm 19 FATHER (colon cancer) 19 MOTHER (leukemia) G8 BROTHER (blood disease) Hypertension Review of Systems Constitutional: fever, weakness EENTM: No see HPI, No no symptoms reported, No ear discharge, No hearing loss, No ear pain, No blurred vision, No double vision, No eye pain, No tearing, No vision loss, No dental problems, No hoarseness, No mouth pain, No mouth swelling, No epistaxis, No nose congestion, No nose pain, No throat pain, No throat swelling, No other Respiratory: cough, short of breath Cardiovascular: No no symptoms reported, No see HPI, No chest pain, No edema, No Hx of Intervention, No palpitations, No syncope, No vascular heart diseas, No other Gastrointestinal: vomiting Genitourinary: No no symptoms reported, No see HPI, No decreased output, No discharge, No dysuria, No frequency, No hematuria, No hesitancy, No incontinence , No nocturia, No pain, No other Musculoskeletal: muscle weakness Skin: No no symptoms reported, No see HPI, No change in color, No change in hair/nails, No dryness, No hx of skin cancer, No lesions, No lumps, No pruritus, No rash, No other Psychiatric/Neurological: Weakness Physical Exam Vital Signs Vital Signs - First Documented 08/11/20 08/11/20 08/11/20 17:55 19:50 22:33 Temp 38.5 Pulse 80 Resp 16 B/P (MAP) 116/98 (104) Pulse Ox 85 O2 Delivery Room Air O2 Flow Rate 2.00 FiO2 28 Capillary Refill : Less Than 3 Seconds Height, Weight, BMI Height: 5'7.00" Weight: 170lbs. 0.0oz. 77.273479kt; 28.32 BMI Method:Stated General Appearance: No Apparent Distress HEENT: Normal ENT Inspection Neck: Supple Respiratory: Crackles (right middle lung area), Decreased Breath Sounds, Wheezing (right) Cardiovascular: Regular Rate, Rhythm, Systolic Murmur Gastrointestinal: Normal Bowel Sounds, Non Tender, Soft Genital/Rectal: No Normal Genital Exam, No Normal Rectal Exam, No Normal Rectal Tone, No Normal Vaginal Exam, No Heme Negative Stool, No Blood at Uretheral Meatus, No Decreased Rectal Tone, No Heme Positive Stool, No Tenderness, No Other Back: No CVA Tenderness Extremity: Non Tender, No Calf Tenderness, No Pedal Edema Neurologic/Psychiatric: Alert, Oriented x3 Skin: Warm/Dry Comments Laboratory Tests 08/11/20 18:05: White Blood Count 11.4H, Red Blood Count 4.08, Hemoglobin 12.4, Hematocrit 38, Mean Corpuscular Volume 93, Mean Corpuscular Hemoglobin 30, Mean Corpuscular Hemoglobin Concent 33, Red Cell Distribution Width 13.4, Platelet Count 135, Mean Platelet Volume 11.2, Immature Granulocyte % (Auto) 0, Neutrophils (%) (Auto) 82H, Lymphocytes (%) (Auto) 7L, Monocytes (%) (Auto) 8, Eosinophils (%) (Auto) 2, Basophils (%) (Auto) 1, Neutrophils # (Auto) 9.3H, Lymphocytes # (Auto) 0.8L, Monocytes # (Auto) 0.9, Eosinophils # (Auto) 0.2, Basophils # (Auto) 0.1, Immature Granulocyte # (Auto) 0.0, Neutrophils % (Manual) 87, Lymphocytes % (Manual) 4, Monocytes % (Manual) 6, Eosinophils % (Manual) 3, Blood Morphology Comment NORMAL, Prothrombin Time 26.1H, INR Comment 2.4H, D- Dimer 0.42, Sodium Level 132L, Potassium Level 4.0, Chloride Level 100, Carbon Dioxide Level 22, Anion Gap 10, Blood Urea Nitrogen 11, Creatinine 1.21, Estimat Glomerular Filtration Rate 42, BUN/Creatinine Ratio 9, Glucose Level 134H, L actic Acid Level 1.12, Calcium Level 9.8, Corrected Calcium 9.6, Total Bilirubin 0.6, Aspartate Amino Transf (AST/SGOT) 22, Alanine Aminotransferase (ALT/SGPT) 23, Alkaline Phosphatase 90, C-Reactive Protein High Sensitivity 1.65H, B-Type Natriuretic Peptide 92.1, Total Protein 7.6, Albumin 4.2, Procalcitonin 0.08, Coronavirus 2019 (ISIDRO) Negative 08/11/20 18:10: Urine Color YELLOW, Urine Clarity CLEAR, Urine pH 6.5, Urine Specific [place] 1.010L, Urine Protein NEGATIVE, Urine Glucose (UA) NEGATIVE, Urine Ketones NEGATIVE, Urine Nitrite NEGATIVE, Urine Bilirubin NEGATIVE, Urine Urobilinogen 0.2, Urine Leukocyte Esterase 1+H, Urine RBC (Auto) NEGATIVE, Urine RBC NONE, Urine WBC 10-25H, Urine Squamous Epithelial Cells NONE, Urine Crystals NONE, Urine Bacteria LARGEH, Urine Casts NONE, Urine Mucus NEGATIVE, Urine Culture Indicated YES Microbiology 08/11/20 Influenza Types A,B Antigen (HILARIA) - Final, Complete Assessment/Plan Assessment and Plan 1. Acute Respiratory Distress with Hypoxia--on oxygen 2. Acute Right Infrahilar Pneumonia--on rocephin/zithromax, repeat CXR in AM, send out covid pending, start routine albuterol HFA treatments and give dose of solumedrol now 3. Acute UTI--cover with rocephin 4. History of DVT/PE--resume coumadin and monitor INR, will also cover with low dose lovenox 5. Depression--resume Citalopram Admission Diagnosis Admission Status: Inpatient Order (span 2 midnights) Reason for Inpatient Admission: Patient will require at least 48hrs abx CARLOS MICHEL DO Aug 12, 2020 12:25
[2020-08-12] MEDS: ENOXAPARIN 40 MG/0.4 ML (LOVENOX) SYR SC SCH (13:08)
[2020-08-12] MEDS: RT-ALBUTEROL INHALER HFA (VENTOLIN HFA) 18 GM IH SCH ×3 (14:07→22:09)
[2020-08-12] MEDS ORDERED: warFARin 2 MG (COUMADIN) TAB PO SCH (18:00)
[2020-08-12] MEDS: TIMOLOL MALEATE 0.25% (TIMOPTIC) 5 ML DROPS OU SCH (20:08)
[2020-08-12] MEDS: cefTRIAXone 1,000 MG/SWFI 10 ML IV PUSH IV SCH ×2 (20:08)
[2020-08-13] MEDS: RT-ALBUTEROL INHALER HFA (VENTOLIN HFA) 18 GM IH SCH ×5 (02:05→22:19)
[2020-08-13 03:25] LABS: HEMOGLOBIN 10.5 g/dL (11.5-16.0); MEAN PLATELET VOLUME 11.5 fL (9.0-12.2)
[2020-08-13 03:27] LABS: WHITE BLOOD COUNT 11.6 10^3/uL (4.3-11.0)
[2020-08-13 03:44] LABS: INR 2.7 (0.8-1.4); PROTHROMBIN TIME PATIENT 29.3 SEC (12.2-14.7)
[2020-08-13 03:55] LABS: BUN/CREATININE RATIO 12; CALCIUM 9.1 MG/DL (8.5-10.1); CARBON DIOXIDE 19 MMOL/L (21-32); CHLORIDE 104 MMOL/L (98-107); CREATININE SERUM 0.84 MG/DL (0.60-1.30); GFR ESTIMATED > 60; GLUCOSE 144 MG/DL (70-105); POTASSIUM 3.9 MMOL/L (3.6-5.0); SODIUM 134 MMOL/L (135-145)
[2020-08-13] MEDS: LACTATED RINGERS 1,000 ML IV SCH ×2 (04:04→12:32)
[2020-08-13] MEDS: TIMOLOL MALEATE 0.25% (TIMOPTIC) 5 ML DROPS OU SCH ×2 (07:59→20:25)
[2020-08-13] MEDS: AZITHROMYCIN 250 MG TAB (ZITHROMAX) PO SCH (07:59)
[2020-08-13] MEDS ORDERED: amLODIPine 2.5MG (NORVASC) TAB PO ONE (10:15)
--- NOTE | 2020-08-13 10:25 | Diagnostic Imaging Report ---
PA and lateral chest at 857h. INDICATION: Cough The heart size is within normal limits and stable when compared to 08/11/2020. The atelectasis/infiltrate involving the right infrahilar region seen previously is again evident. There also now appears to be some pneumonia/atelectasis in the left lung base. This has developed since the prior exam. The upper lungs are generally clear. The mediastinum is not widened. The osseous structures are intact. IMPRESSION: There is persistent involvement of the right infrahilar region by pneumonia/atelectasis. There is also new mild pneumonia/atelectasis in the left lung base. A follow-up study would be recommended for continued evaluation. Dictated by: Dictated on workstation # [id number]
--- NOTE | 2020-08-13 10:32 | Progress Note ---
Subjective Date Seen by a Provider: Aug 13, 2020 Time Seen by a Provider: 10:27 Subjective/Events-last exam Fwup acute respiratory distress with hypoxia, right perihilar pneumonia, UTI, history of DVT/PE, depression. Cough is productive. Second covid negative. BP has been elevated. Focused Exam Lactate Level 08/11/20 18:05: Lactic Acid Level 1.12 Objective Exam Vital Signs Date Time Temp Pulse Resp B/P (MAP) Pulse Ox O2 Delivery O2 Flow Rate FiO2 08/13/20 09:00 95 Nasal Cannula 5.00 08/13/20 08:04 36.1 80 22 164/77 (106) 96 Nasal Cannula 5.00 08/13/20 07:00 72 08/13/20 04:07 37.0 67 19 159/81 (107) 98 Nasal Cannula 5.00 08/13/20 02:05 96 Nasal Cannula 3.00 08/13/20 01:00 59 08/13/20 00:00 36.8 72 19 138/88 (105) 93 Nasal Cannula 5.00 08/12/20 22:27 95 Nasal Cannula 4.00 08/12/20 20:00 36.4 69 19 169/79 (109) 92 Nasal Cannula 5.00 08/12/20 19:00 75 08/12/20 18:08 97 Nasal Cannula 4.00 08/12/20 16:30 37.0 62 18 131/62 (85) 97 Nasal Cannula 5.00 08/12/20 14:08 94 Nasal Cannula 6.00 08/12/20 12:38 64 08/12/20 12:02 36.0 64 18 116/64 (81) 94 Nasal Cannula 5.00 I & O 08/13/20 07:00 Intake Total 660 ml Output Total 550 ml Balance 110 ml Capillary Refill : Less Than 3 Seconds General Appearance: No Apparent Distress Neck: Supple Respiratory: Rales (right ), Rhonci (right) Cardiovascular: Regular Rate, Rhythm, Systolic Murmur Gastrointestinal: normal bowel sounds, non tender, soft Extremity: Non Tender, No Calf Tenderness, No Pedal Edema Neurologic/Psychiatric: Alert, Oriented x3 Skin: Warm/Dry Results Lab Laboratory Tests 08/13/20 02:50: White Blood Count 11.6H, Red Blood Count 3.45L, Hemoglobin 10.5L, Hematocrit 32L , Mean Corpuscular Volume 94, Mean Corpuscular Hemoglobin 30, Mean Corpuscular Hemoglobin Concent 32, Red Cell Distribution Width 13.4, Platelet Count 118L, Mean Platelet Volume 11.5, Prothrombin Time 29.3H, INR Comment 2.7H, Sodium Level 134L, Potassium Level 3.9, Chloride Level 104, Carbon Dioxide Level 19L, Anion Gap 11, Blood Urea Nitrogen 10, Creatinine 0.84, Estimat Glomerular Filtration Rate > 60, BUN/Creatinine Ratio 12, Glucose Level 144H, Calcium Level 9.1 Microbiology 08/11/20 Blood Culture - Preliminary, Resulted No growth 08/11/20 Urine Culture - Preliminary, Resulted Escherichia coli 08/11/20 Influenza Types A,B Antigen (HILARIA) - Final, Complete Assessment/Plan Assessment/Plan Assess & Plan/Chief Complaint 1. Acute Respiratory Distress--on oxygen, routine albuterol 2. Acute Right Perihilar Pneumonia--on Rocephin/Zithromax, second COVID negative 3. Acute UTI--on rocephin 4. History of DVT/PE--resumed coumadin, INR 2.7 so will decrease coumadin to 1mg today and recheck PT/INR in am 5. Depression--back on citalopram 6. Hypertension--amlodopine low dose To Medical if bed available Clinical Quality Measures Admission Status Admission Dx 1. Acute Respiratory Distress with Hypoxia--on oxygen 2. Acute Right Infrahilar Pneumonia--on rocephin/zithromax, repeat CXR in AM, send out covid pending, start routine albuterol HFA treatments and give dose of solumedrol now 3. Acute UTI--cover with rocephin 4. History of DVT/PE--resume coumadin and monitor INR, will also cover with low dose lovenox 5. Depression--resume Citalopram CARLOS MICHEL DO Aug 13, 2020 10:32
[2020-08-13] MEDS: ENOXAPARIN 40 MG/0.4 ML (LOVENOX) SYR SC SCH (12:32)
[2020-08-13] MEDS: warFARin 1 MG (COUMADIN) TAB PO SCH (18:14)
[2020-08-13] MEDS ORDERED: WATER (STERILE) FOR INJECTION 10 ML ONE (18:23)
[2020-08-13] MEDS ORDERED: cefTRIAXone 1,000 MG IV (ROCEPHIN) VIAL ONE (18:23)
[2020-08-13] MEDS: cefTRIAXone 1,000 MG/SWFI 10 ML IV PUSH IV SCH ×2 (18:33)
[2020-08-13] MEDS: ACETAMINOPHEN 325 MG TABLET PO PRN (20:25)
[2020-08-14] MEDS: RT-ALBUTEROL INHALER HFA (VENTOLIN HFA) 18 GM IH SCH ×6 (01:40→21:59)
[2020-08-14] MEDS: LACTATED RINGERS 1,000 ML IV SCH (01:48)
[2020-08-14 05:54] LABS: HEMOGLOBIN 10.4 g/dL (11.5-16.0); MEAN PLATELET VOLUME 11.1 fL (9.0-12.2); WHITE BLOOD COUNT 10.1 10^3/uL (4.3-11.0)
[2020-08-14 06:08] LABS: PROTHROMBIN TIME PATIENT 31.1 SEC (12.2-14.7)
[2020-08-14 06:18] LABS: BUN/CREATININE RATIO 9; CALCIUM 9.2 MG/DL (8.5-10.1); CARBON DIOXIDE 22 MMOL/L (21-32); CHLORIDE 103 MMOL/L (98-107); CREATININE SERUM 0.85 MG/DL (0.60-1.30); GFR ESTIMATED > 60; GLUCOSE 97 MG/DL (70-105); POTASSIUM 4.2 MMOL/L (3.6-5.0); SODIUM 133 MMOL/L (135-145)
[2020-08-14] MEDS: AZITHROMYCIN 250 MG TAB (ZITHROMAX) PO SCH (08:58)
[2020-08-14] MEDS: amLODIPine 2.5MG (NORVASC) TAB PO SCH (08:59)
[2020-08-14] MEDS ORDERED: BETA1TAB15 PO (09:04)
--- NOTE | 2020-08-14 09:32 | Progress Note ---
Subjective Subjective Date Seen by Provider: Aug 14, 2020 Time Seen by Provider: 08:40 PT REPORTS THAT SHE IS FEELING A LITTLE BIT BETTER TODAY - SHE DENIES CHEST PAIN, DOES HAVE SHORTNESS OF BREATH WITH AMBULATION, HAS BEEN WALKING TO THE RESTROOM. SHE DENIES CHEST PAIN, ABDOMINAL PAIN, NAUSEA. Review of Systems General: No Chills; Fatigue HEENT: No Head Aches, No Visual Changes Pulmonary: Dyspnea; No Cough Cardiovascular: No: Chest Pain, Palpitations Gastrointestinal: No: Nausea, Abdominal Pain, Diarrhea Genitourinary: No Dysuria Neurological: No: Weakness, Confusion Objective Exam Vital Signs Vital Signs - First Documented 08/11/20 08/11/20 08/11/20 17:55 19:50 22:33 Temp 38.5 Pulse 80 Resp 16 B/P (MAP) 116/98 (104) Pulse Ox 85 O2 Delivery Room Air O2 Flow Rate 2.00 FiO2 28 Capillary Refill : Less Than 3 Seconds General Appearance: No Apparent Distress, WD/WN Eyes: Bilateral Eye Normal Inspection, Bilateral Eye PERRL, Bilateral Eye EOMI HEENT: PERRL/EOMI, Normal ENT Inspection Neck: Full Range of Motion, Supple Respiratory: Crackles, Decreased Breath Sounds, Rales (right ), Rhonci (right) Cardiovascular: Regular Rate, Rhythm, Systolic Murmur Gastrointestinal: Normal Bowel Sounds, Non Tender, Soft Rectal: Deferred Back: No CVA Tenderness Extremity: Non Tender, No Calf Tenderness, No Pedal Edema Neurologic/Psychiatric: Alert, Oriented x3, Normal Mood/Affect, systems support specialist II-XII Norm as Tested Skin: Normal Color, Warm/Dry Results Lab Laboratory Tests 08/14/20 05:43: White Blood Count 10.1, Red Blood Count 3.38L, Hemoglobin 10.4L, Hematocrit 32L, Mean Corpuscular Volume 94, Mean Corpuscular Hemoglobin 31, Mean Corpuscular Hemoglobin Concent 33, Red Cell Distribution Width 13.6, Platelet Count 164, Mean Platelet Volume 11.1, Prothrombin Time 31.1H, INR Comment 3.0H, Sodium Level 133L, Potassium Level 4.2, Chloride Level 103, Carbon Dioxide Level 22, Anion Gap 8, Blood Urea Nitrogen 8, Creatinine 0.85, Estimat Glomerular Filtration Rate > 60, BUN/Creatinine Ratio 9, Glucose Level 97, Calcium Level 9.2 Microbiology 08/11/20 Blood Culture - Preliminary, Resulted No growth 08/11/20 Urine Culture - Final, Complete Escherichia coli 08/11/20 Influenza Types A,B Antigen (HILARIA) - Final, Complete Assessment/Plan Assessment/Plan Admission Dx ACUTE RESPIRATORY DISTRESS RIGHT SIDED PNEUMONIA ACUTE URINARY TRACT INFECTION HX DVT WITH PULMONARY EMBOLI DEPRESSION CHRONIC HYPERTENSION Assessment and Plan ACUTE RESPIRATORY DISTRESS RIGHT SIDED PNEUMONIA ACUTE URINARY TRACT INFECTION HX DVT WITH PULMONARY EMBOLI DEPRESSION CHRONIC HYPERTENSION ACUTE RESPIRATORY DISTRESS WITH RIGHT SIDED PNEUMONIA - ON VAPOTHERM - CONTINUE WITH WEANING ABLE. - IV ANTIBIOTICS OF ROCEPHIN AND ORAL ZITHROMAX - REPEAT IMAGING CXR IN MORNING. ACUTE URINARY TRACT INFECTION - WAITING ON CULTURE REPORT - IV ROCEPHIN HX DVT WITH PULMONARY EMBOLI - ON CHRONIC COUMADIN THERAPY - MONITOR INR SERIALLY DEPRESSION - STABLE - ON HOME REGIMEN, RESUME CHRONIC HYPERTENSION - RESUME HOME REGIMEN. WILL REQUIRE A FEW MORE DAYS IN HOSPITAL FOR STABILIZATION AND WEANING OF OXYGEN AJITH PENN MD Aug 14, 2020 09:32
[2020-08-14] MEDS: ENOXAPARIN 40 MG/0.4 ML (LOVENOX) SYR SC SCH (14:38)
[2020-08-14] MEDS: TIMOLOL MALEATE 0.25% (TIMOPTIC) 5 ML DROPS OU SCH ×2 (14:42→19:49)
[2020-08-14] MEDS: ACETAMINOPHEN 325 MG TABLET PO PRN (16:06)
[2020-08-14] MEDS: warFARin 1 MG (COUMADIN) TAB PO SCH (18:09)
[2020-08-14] MEDS ORDERED: cefTRIAXone 1,000 MG/SWFI 10 ML IV PUSH IV SCH ×2 (18:30)
--- NOTE | 2020-08-14 19:31 | Physician Query Clarification ---
Physician Query-General Query to Physician: The medical record reflects the following clinical evidence: Clinical Indicators: RR20, 02 sat 85% on RA, SOA at rest per Nursing, requiring up to 90% FiO2, currently on 70% Risk Factor(s): Pneumonia, Advanced age Treatment: High flow 02, Vapotherm, Albuterol, IV ABX Acute respiratory failure with hypoxia 1. Acute respiratory failure with hypoxia oresent on admission 2. Acute respiratory distress with hypoxia (as currently documented) 3. Other explanation of clinical findings 4. Unable to determine (no explanation for clinical findings) Please clarify and document your clinical opinion in the progress notes and discharge summary including the definitive and/or presumptive diagnosis, (suspected or probable), related to the above clinical findings. Please include clinical findings supporting your diagnosis. Erica Westbrook [phone] [email or web address] PHYSICIAN RESPONSE: Based on the clinical findings in the record, please respond to the query above on this document as an addendum. Physician Response: Physician Response Dr. Mckeon's If you have questions please contact: Hand Rug Cleaner: Ext: Thank you for your time and cooperation. Clinical Dray Truck Driver/Hand Rug Cleaner This is a permanent part of the medical record ERICA WESTBROOK Aug 14, 2020 19:31 CARLOS MICHEL DO Aug 15, 2020 12:37
[2020-08-15] MEDS: RT-ALBUTEROL INHALER HFA (VENTOLIN HFA) 18 GM IH SCH ×6 (02:15→21:43)
[2020-08-15 06:11] LABS: HEMOGLOBIN 10.1 g/dL (11.5-16.0); MEAN PLATELET VOLUME 10.7 fL (9.0-12.2)
[2020-08-15 06:28] LABS: ALBUMIN 3.4 GM/DL (3.2-4.5); CHLORIDE 103 MMOL/L (98-107); INR 2.6 (0.8-1.4); POTASSIUM 4.1 MMOL/L (3.6-5.0); SODIUM 135 MMOL/L (135-145)
[2020-08-15 06:29] LABS: CALCIUM 9.3 MG/DL (8.5-10.1)
[2020-08-15 06:30] LABS: GLUCOSE 95 MG/DL (70-105)
[2020-08-15 06:31] LABS: TOTAL PROTEIN 6.5 GM/DL (6.4-8.2)
[2020-08-15 06:32] LABS: BILIRUBIN,TOTAL 0.9 MG/DL (0.1-1.0); CARBON DIOXIDE 21 MMOL/L (21-32)
[2020-08-15 06:34] LABS: ALKALINE PHOSPHATASE 64 U/L (40-136); CREATININE SERUM 0.88 MG/DL (0.60-1.30); GFR ESTIMATED > 60
[2020-08-15 06:35] LABS: BUN/CREATININE RATIO 9
[2020-08-15 06:37] LABS: ALANINE AMINOTRANSFERASE 22 U/L (0-55)
--- NOTE | 2020-08-15 08:08 | Progress Note ---
Subjective Subjective Date Seen by Provider: Aug 15, 2020 Time Seen by Provider: 07:40 Pt comfrotable sitting up in bed. Appears slightly sob and frequently coughing. Cough is productive. Says she wants to start moving around more and believes she will feel better if she can do so. Denies nausea/vomiting, fever, chills, chest pain. Review of Systems General: No Chills; Fatigue HEENT: No Head Aches, No Visual Changes Pulmonary: Dyspnea, Cough Cardiovascular: No: Chest Pain, Palpitations Gastrointestinal: No: Nausea, Abdominal Pain, Diarrhea Genitourinary: No Dysuria Neurological: No: Weakness, Confusion Objective Exam Vital Signs Vital Signs - First Documented 08/11/20 08/11/20 08/11/20 17:55 19:50 22:33 Temp 38.5 Pulse 80 Resp 16 B/P (MAP) 116/98 (104) Pulse Ox 85 O2 Delivery Room Air O2 Flow Rate 2.00 FiO2 28 Capillary Refill : Less Than 3 Seconds General Appearance: No Apparent Distress, WD/WN Eyes: Bilateral Eye Normal Inspection, Bilateral Eye PERRL, Bilateral Eye EOMI HEENT: PERRL/EOMI, Normal ENT Inspection Neck: Full Range of Motion, Supple Respiratory: Crackles, Decreased Breath Sounds, Rales (right ), Rhonci (right) Cardiovascular: Regular Rate, Rhythm, Systolic Murmur Gastrointestinal: Normal Bowel Sounds, Non Tender, Soft Rectal: Deferred Back: No CVA Tenderness Extremity: Non Tender, No Calf Tenderness, No Pedal Edema Neurologic/Psychiatric: Alert, Oriented x3, Normal Mood/Affect, log roper II-XII Norm as Tested Skin: Normal Color, Warm/Dry Results Lab Laboratory Tests 08/15/20 05:54: White Blood Count 10.0, Red Blood Count 3.31L, Hemoglobin 10.1L, Hematocrit 31L, Mean Corpuscular Volume 93, Mean Corpuscular Hemoglobin 31, Mean Corpuscular Hemoglobin Concent 33, Red Cell Distribution Width 13.5, Platelet Count 164, Mean Platelet Volume 10.7, Prothrombin Time 28.0H, INR Comment 2.6H, Sodium Level 135, Potassium Level 4.1, Chloride Level 103, Carbon Dioxide Level 21, Anion Gap 11, Blood Urea Nitrogen 8, Creatinine 0.88, Estimat Glomerular Filtration Rate > 60, BUN/Creatinine Ratio 9, Glucose Level 95, Calcium Level 9.3, Corrected Calcium 9.8, Total Bilirubin 0.9, Aspartate Amino Transf (AST/SGOT) 24, Alanine Aminotransferase (ALT/SGPT) 22, Alkaline Phosphatase 64, Total Protein 6.5, Albumin 3.4 Microbiology 08/11/20 Blood Culture - Preliminary, Resulted No growth 08/11/20 Urine Culture - Final, Complete Escherichia coli 08/11/20 Influenza Types A,B Antigen (HILARIA) - Final, Complete Assessment/Plan Assessment/Plan Assessment and Plan ACUTE RESPIRATORY DISTRESS RIGHT SIDED PNEUMONIA ACUTE URINARY TRACT INFECTION HX DVT WITH PULMONARY EMBOLI DEPRESSION CHRONIC HYPERTENSION ACUTE RESPIRATORY DISTRESS WITH RIGHT SIDED PNEUMONIA - ON VAPOTHERM - CONTINUE WITH WEANING ABLE. 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 WILL REQUIRE A FEW MORE DAYS IN HOSPITAL FOR STABILIZATION AND WEANING OF OXYGEN Supervisory-Addendum Brief Verification & Attestation Participated in pt care: history, MDM, physical Personally performed: exam, history, MDM, supervision of care Care discussed with: Medical Student Procedures: n/a Results interpretation: Verified all documentation AGREE WITH STUDENT NOTE DOCUMENTED - SEE BELOW FOR MY ASSESSMENT AND PLAN. WHEN I SAW DELORIS THIS MORNING SHE WAS ACUTE IMPROVED FROM YESTERDAY VISUALLY - HOWEVER WHEN LISTENING TO HER LUNGS, MUCH MORE MOBILIZATION OF FLUID AND MUCOUS THROUGHOUT LUNGS, WILL HAVE RT BE MORE AGGRESSIVE WITH THEIR THERAPY/TREATMENTS. ACUTE RESPIRATORY DISTRESS RIGHT SIDED PNEUMONIA ACUTE URINARY TRACT INFECTION HX DVT WITH PULMONARY EMBOLI DEPRESSION CHRONIC HYPERTENSION ACUTE RESPIRATORY DISTRESS WITH RIGHT SIDED PNEUMONIA - ON VAPOTHERM - CONTINUE WITH WEANING ABLE - PT HAD WORSENING OVER THE GRID INSPECTOR HOURS, WENT FROM 25LMP AT 65% TO 75% OXYGEN - DISCUSSED WITH RT STAFF, WILL CONTINUE TO ATTEMPT WEANING.. - IV ANTIBIOTICS OF ROCEPHIN AND ORAL ZITHROMAX - CHANGED THIS AFTERNOON AFTER WE FINALLY GOT CXR RESULTS WHICH SHOWED WORSENING - STOPPED ROCEPHIN AND CHANGES TO MEROPENEM. - REPEAT IMAGING CXR IN MORNING. ACUTE ECOLI URINARY TRACT INFECTION PANSENSITIVE URINE CULTURE FOR ECOLI - IV ROCEPHIN - CHANGED TO MEROPENEM HX DVT WITH PULMONARY EMBOLI - ON CHRONIC COUMADIN THERAPY - MONITOR INR SERIALLY DEPRESSION - STABLE - ON HOME REGIMEN, RESUME CHRONIC HYPERTENSION - RESUME HOME REGIMEN. WILL REQUIRE A FEW MORE DAYS IN HOSPITAL FOR STABILIZATION AND WEANING OF OXYGEN CLEMENTE CHANCE MED STUDENT Aug 15, 2020 08:08 AJITH PENN MD Aug 15, 2020 19:00
[2020-08-15] MEDS: amLODIPine 2.5MG (NORVASC) TAB PO SCH (08:34)
[2020-08-15] MEDS: AZITHROMYCIN 250 MG TAB (ZITHROMAX) PO SCH (08:34)
[2020-08-15] MEDS: TIMOLOL MALEATE 0.25% (TIMOPTIC) 5 ML DROPS OU SCH ×2 (08:34→19:51)
--- NOTE | 2020-08-15 09:21 | Diagnostic Imaging Report ---
EXAMINATION: CHEST (PA AND LATERAL). CLINICAL INDICATION: 85-year-old female, shortness of breath. Evaluation for pneumonia. COMPARISON: August 13, 2020. FINDINGS: The heart size and mediastinal contours are unchanged. There is no identified pneumothorax. There is blunting of the bilateral lateral and posterior costophrenic angles. There is nonspecific left lower lobe airspace consolidation and consolidation in the right medial lung base which is an interval change since the comparison exam. There are new linear opacities in the right midlung. There is an ossification projecting below the level of the right humeral head which potentially may relate to an intra-articular body. There are multilevel degenerative changes of the spine. IMPRESSION: 1. Nonspecific airspace consolidation in the lung bases with interval new consolidation in the right lung base since the comparison study. 2. Probable bilateral pleural effusions. 3. New predominantly linear opacities in the right midlung which may relate to atelectasis. Dictated by: Dictated on workstation # [id number]
[2020-08-15] MEDS: MEROPENEM 2,000 MG in NS (IVPB) 100 ML IV SCH (15:04)
[2020-08-15] MEDS: warFARin 1 MG (COUMADIN) TAB PO SCH (17:43)
[2020-08-15] MEDS: ACETAMINOPHEN 325 MG TABLET PO PRN (18:49)
[2020-08-15] MEDS: guaiFENesin (MUCINEX) 600 MG TAB PO SCH (19:50)
--- NOTE | 2020-08-15 21:03 | Physician Query Clarification ---
Physician Query-General Query to Physician: The medical record reflects the following clinical evidence: Clinical Indicators: RR20, 02 sat 85% on RA, SOA at rest per Nursing, requiring up to 90% FiO2, currently on 70% Risk Factor(s): Pneumonia, Advanced age Treatment: High flow 02, Vapotherm, Albuterol, IV ABX Do you agree with the impression of Acute Respiratory Failure with Hypoxia per Dr. Claudette Reaves? If you agree, please document in Progress Notes or Discharge Summary. Do you agree with Acute Respiratory Failure 1. Acute respiratory failure with hypoxia oresent on admission 2. Acute respiratory distress with hypoxia (as currently documented) 3. Other explanation of clinical findings 4. Unable to determine (no explanation for clinical findings) Please clarify and document your clinical opinion in the progress notes and discharge summary including the definitive and/or presumptive diagnosis, (suspected or probable), related to the above clinical findings. Please include clinical findings supporting your diagnosis. Erica Lopez [phone] PHYSICIAN RESPONSE: Based on the clinical findings in the record, please respond to the query above on this document as an addendum. Physician Response: Physician Response 2. Acute respiratory distress with hypoxia (as currently documented) If you have questions please contact: Medicare Nurse: Ext: Thank you for your time and cooperation. Clinical Senior [employer] Developer/Medicare Nurse This is a permanent part of the medical record ERICA LOPEZ Aug 15, 2020 21:03 AJITH PENN MD Aug 21, 2020 15:30
[2020-08-16] MEDS: MEROPENEM 2,000 MG in NS (IVPB) 100 ML IV SCH (01:46)
[2020-08-16] MEDS: RT-ALBUTEROL INHALER HFA (VENTOLIN HFA) 18 GM IH SCH ×4 (02:17→14:57)
[2020-08-16 06:52] LABS: INR 1.6 (0.8-1.4); PROTHROMBIN TIME PATIENT 19.5 SEC (12.2-14.7)
--- NOTE | 2020-08-16 08:11 | Progress Note ---
Subjective Subjective Date Seen by Provider: Aug 16, 2020 Time Seen by Provider: 07:40 Pt comfrotable sitting up in bed. Sob and cough show slight improvement. States shes "feeling better every day." Still dependent on high flow O2. Says her cough is producing mostly clear sputum. Breath sounds show improvement since yesterday. Reports she did have some chills yesterday, but none this morning. Denies n/v, chest pain, hemoptysis. Review of Systems General: No Chills; Fatigue HEENT: No Head Aches, No Visual Changes Pulmonary: Dyspnea, Cough Cardiovascular: No: Chest Pain, Palpitations Gastrointestinal: No: Nausea, Abdominal Pain, Diarrhea Genitourinary: No Dysuria Neurological: No: Weakness, Confusion Objective Exam Vital Signs Vital Signs - First Documented 08/11/20 08/11/20 08/11/20 17:55 19:50 22:33 Temp 38.5 Pulse 80 Resp 16 B/P (MAP) 116/98 (104) Pulse Ox 85 O2 Delivery Room Air O2 Flow Rate 2.00 FiO2 28 Capillary Refill : Less Than 3 Seconds General Appearance: No Apparent Distress, WD/WN Eyes: Bilateral Eye Normal Inspection, Bilateral Eye PERRL, Bilateral Eye EOMI HEENT: PERRL/EOMI, Normal ENT Inspection Neck: Full Range of Motion, Supple Respiratory: Crackles, Decreased Breath Sounds, Rales (right ), Rhonci (right) Cardiovascular: Regular Rate, Rhythm, Systolic Murmur Gastrointestinal: Normal Bowel Sounds, Non Tender, Soft Rectal: Deferred Back: No CVA Tenderness Extremity: Non Tender, No Calf Tenderness, No Pedal Edema Neurologic/Psychiatric: Alert, Oriented x3, Normal Mood/Affect, counter waitress/waiter II-XII Norm as Tested Skin: Normal Color, Warm/Dry Results Lab Laboratory Tests 08/16/20 05:32: Prothrombin Time 19.5H, INR Comment 1.6H Microbiology 08/11/20 Blood Culture - Preliminary, Resulted No growth 08/11/20 Urine Culture - Final, Complete Escherichia coli 08/11/20 Influenza Types A,B Antigen (HILARIA) - Final, Complete Assessment/Plan Assessment/Plan Assessment and Plan ACUTE RESPIRATORY DISTRESS RIGHT SIDED PNEUMONIA ACUTE URINARY TRACT INFECTION HX DVT WITH PULMONARY EMBOLI DEPRESSION CHRONIC HYPERTENSION ACUTE RESPIRATORY DISTRESS WITH RIGHT SIDED PNEUMONIA - ON VAPOTHERM - CONTINUE WITH WEANING ABLE. 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 WILL REQUIRE A FEW MORE DAYS IN HOSPITAL FOR STABILIZATION AND WEANING OF OXYGEN Supervisory-Addendum Brief Verification & Attestation Participated in pt care: history, MDM, physical Personally performed: exam, history, MDM, supervision of care Care discussed with: Medical Student Procedures: n/a Results interpretation: Verified all documentation ACUTE RESPIRATORY DISTRESS RIGHT SIDED PNEUMONIA ACUTE URINARY TRACT INFECTION HX DVT WITH PULMONARY EMBOLI DEPRESSION CHRONIC HYPERTENSION ACUTE RESPIRATORY DISTRESS WITH RIGHT SIDED PNEUMONIA - ON VAPOTHERM - CONTINUE WITH WEANING ABLE. - IV ANTIBIOTICS OF ROCEPHIN AND ORAL ZITHROMAX - REPEAT IMAGING CXR IN MORNING. ACUTE URINARY TRACT INFECTION - IV ROCEPHIN HX DVT WITH PULMONARY EMBOLI - ON CHRONIC COUMADIN THERAPY - MONITOR INR SERIALLY - DOSE INCREASED TODAY DEPRESSION - STABLE - ON HOME REGIMEN, RESUME CHRONIC HYPERTENSION - RESUME HOME REGIMEN. WILL REQUIRE A FEW MORE DAYS IN HOSPITAL FOR STABILIZATION AND WEANING OF OXYGEN CLEMENTE CHANCE MED STUDENT Aug 16, 2020 08:11 AJITH PENN MD Aug 18, 2020 21:55
[2020-08-16] MEDS: TIMOLOL MALEATE 0.25% (TIMOPTIC) 5 ML DROPS OU SCH ×2 (09:56→21:01)
[2020-08-16] MEDS: guaiFENesin (MUCINEX) 600 MG TAB PO SCH ×2 (09:56→21:01)
[2020-08-16] MEDS: amLODIPine 2.5MG (NORVASC) TAB PO SCH (09:56)
--- NOTE | 2020-08-16 10:15 | Diagnostic Imaging Report ---
INDICATION: Pneumonia and pleural effusions. TECHNIQUE/COMPARISON: PA and lateral views of the chest were obtained at 9:19 AM and compared to yesterday. FINDINGS: The heart is top limits of normal in size. The mediastinal silhouette is unremarkable. There is some mild infiltrate or atelectasis in the lung bases. Bilateral pleural effusions are present which appear slightly larger compared to yesterday. IMPRESSION: Mild increase in bilateral pleural effusions compared to yesterday. There are mild bibasilar infiltrates. Dictated by: Dictated on workstation # [id number]
[2020-08-16] MEDS: MEROPENEM 500 MG/SWFI 10 ML IV PUSH IV SCH ×4 (10:53→17:48)
--- NOTE | 2020-08-16 14:32 | Physical Therapy Evaluation ---
PT Evaluation-General Medical Diagnosis Admission Date Aug 11, 2020 at 19:16 Medical Diagnosis: pneumonia, UTI Onset Date: Aug 11, 2020 Therapy Diagnosis Therapy Diagnosis: debility Height/Weight Height (Feet): 5 Height (Inches): 7.00 Weight (Pounds): 170 Weight (Ounces): 0.0 Precautions Precautions/Isolations: Fall Prevention, Standard Precautions Referral Physician: Linda Reason for Referral: Evaluation/Treatment Medical History Pertinent Medical History: Arthritis, Diverticulitis, Fractures, HTN Current History ER car transport due to fever/cough/vomiting for 3 days Reviewed History: Yes Social History Home: Single Level Current Living Status: Spouse Entry Into Home: Level Entry Prior Prior Level of Function SCALE: Activities may be completed with or without assistive devices. 8-Ofjofojcbx-uxnwwla completes the activity by him/herself with no assistance from a helper. 5-Set-up or Clean-up Assistance-helper sets up or cleans up; patient completes activity. [place] assists only prior to or following the activity. 4-Supervision or Touching Assistance-helper provides verbal cues and/or touching/steadying and/or contact guard assistance as patient completes activity. Assistance may be provided throughout the activity or intermittently. 3-Partial/Moderate Assistance-helper does LESS THAN HALF the effort. [place]wick lifts, holds or supports trunk or limbs, but provides less than half the effort. 2-Substantial/Maximal Assistance-helper does MORE THAN HALF the effort. [place] lifts or holds trunk or limbs and provides more than half the effort. 9-Xmjlwzwia-nedtjt does ALL the effort. Patient does none of the effort to complete the activity. Or, the assistance of 2 or more helpers is required for the patient to complete the activity. If activity was not attempted, code reason: 7-Patient Refused. 9-Not Applicable-not attempted and the patient did not perform the activity before the current illness, exacerbation or injury. 10-Not Attempted due to Environmental Limitations-(lack of equipment, weather restraints, etc.). 88-Not Attempted due to Medical Conditions or Safety Concerns. Bed Mobility: 6 Transfers (B,C,W/C): 6 Gait: 6 Indoor Mobility (Ambulation): Independent Prior Device Use: Occassionally uses walker/cane PT Evaluation-Current Subjective Patient reports she is feeling better. Patient reports no pain, denies wanting to transfer to chair but consents to short walk in room and bed exercises. Pt/Family Goals Return home with functional independence Objective Patient Orientation: Person, Place, Time, Normal For Age Vapotherm ROM/Strength ROM Lower Extremities WNL Strength Lower Extremities WNL Integumentary/Posture Integumentary see nursing report Bowel Incontinence: No Bladder Incontinence: No Posture mod kyphosis Sensory Vision: Functional Hearing: Impaired Sensation Right Lower Extremit: Intact Sensation Left Lower Extremity: Intact Transfers Roll Left to Right (QC): 6 Sit to Lying (QC): 4 Lying to Sitting/Side of Bed(Q: 3 Sit to Stand (QC): 4 Patient is CGA with bed mobility, mod assistance with maneuvering legs in bed Gait Does the Patient Walk?: Yes Mode of Locomotion: Walk Anticipated Mode of Locomotion: Walk Walk 10 feet (QC): 4 (CGA) Distance: 10' Gait Assistive Device: FWW Comments/Gait Description Ambulated 10' in room, patient had forward posture with gait but was steady and maintained balance well Balance Sitting Static: Good Sitting Dynamic: Good Standing Static: Good Standing Dynamic: Good Treatment LE exercises (ankle pumps, LAQ 15 reps) Assessment/Needs Patient limited with ambulation by vapotherm Rehab Potential: Good PT Director Of Retail Analytics Goals Mcfp Goals PT Director Of Retail Analytics Goals Time Frame: Aug 23, 2020 Roll Left & Right (QC): 6 Sit to Lying (QC): 6 Lying-Sitting on Side/Bed(QC): 6 Sit to Stand (QC): 6 Chair/Boj-ck-Hqbsz Xfer(QC): 6 Walk 10 feet (QC): 6 Walk 50ft with 2 Turns (QC): 6 PT Plan Problem List Problem List: Activity Tolerance, Functional Strength, Safety, Balance, Gait, Transfer, Bed Mobility, ROM Treatment/Plan Treatment Plan: Continue Plan of Care Treatment Plan: Bed Mobility, Education, Functional Activity Chandu, Functional Strength, Gait, Safety, Therapeutic Exercise, Transfers Treatment Duration: Aug 23, 2020 Frequency: 6 times per week Estimated Hrs Per Day: .25 hour per day Patient and/or Family Agrees t: Yes Safety Risks/Education Patient Education: Gait Training, Transfer Techniques, Correct Positioning, Safety Issues Teaching Recipient: Patient Teaching Methods: Demonstration, Discussion Response to Teaching: Verbalize Understanding, Return Demonstration Discharge Recommendations Plan Patient will benefit from gait training, therapeutic exercise, and endurance training to promote optimal functional independence and safe return home with spouse. Time/GCodes Time In: 1407 Time Out: 1423 Total Billed Treatment Time: 16 Total Billed Treatment 1 visit: KOTAM: Patria' TARUN NASCIMENTO PT Aug 16, 2020 14:32
--- NOTE | 2020-08-16 15:33 | Occupational Therapy Eval ---
OT Evaluation-General/PLF Medical Diagnosis Admission Date Aug 11, 2020 at 19:16 Medical Diagnosis: pneumonia, UTI Onset Date: Aug 11, 2020 Therapy Diagnosis Therapy Diagnosis: Decreased ADL status Height/Weight Height (Feet): 5 Height (Inches): 7.00 Weight (Pounds): 170 Weight (Ounces): 0.0 Precautions Precautions/Isolations: Fall Prevention, Standard Precautions Weight Bear Status Weight Bearing Restriction: Weight Bearing/Tolerated Referral Physician: Linda Referral Reason: Activity Tolerance, Self Care, Evaluation/Treatment, Strengthening/ROM Medical History Pertinent Medical History: Arthritis, Diverticulitis, Fractures, HTN Additional Medical History PE, HTN, arthritis, hx of DVT, depression. Current History Pt admits to ER with 3 days of h/o fever/ cough/ vomiting. Pt at 85% 02 @ ED on room air. Found with R side PNA, acute UTI, acute resp distress with hypoxia. Reviewed History: Yes Social History Home: Single Level Current Living Status: Spouse Entry Into Home: Level Entry ADL-Prior Level of Function SCALE: Activities may be completed with or without assistive devices. 7-Modvsomugt-vyogztx completes the activity by him/herself with no assistance from a helper. 5-Set-up or Clean-up Assistance-helper sets up or cleans up; patient completes activity. [place] assists only prior to or following the activity. 4-Supervision or Touching Assistance-helper provides verbal cues and/or touching/steadying and/or contact guard assistance as patient completes activity . Assistance may be provided throughout the activity or intermittently. 3-Partial/Moderate Assistance-helper does LESS THAN HALF the effort. [place] lifts, holds or supports trunk or limbs, but provides less than half the effort. 2-Substantial/Maximal Assistance-helper does MORE THAN HALF the effort. [place] lifts or holds trunk or limbs and provides more than half the effort. 4-Prjrezanj-jeeamy does ALL the effort. Patient does none of the effort to complete the activity. Or, the assistance of 2 or more helpers is required for the patient to complete the activity. If activity was not attempted, code reason: 7-Patient Refused. 9-Not Applicable-not attempted and the patient did not perform the activity before the current illness, exacerbation or injury. 10-Not Attempted due to Environmental Limitations-(lack of equipment, weather restraints, etc.). 88-Not Attempted due to Medical Conditions or Safety Concerns. ADL PLOF Comments Pt expresses IND within ADLs, though completes IADLs. Self Care: Independent Functional Cognition: Independent DME/Equipment: Bath Chair, Bedside Commode, Grab Bars, Shower DME/Equipment Comments sc, shower, gbs, BSC over stool, walker. Occupation: retired. Drive Self: No OT Current Status Subjective Pt AxO. Upright in recliner. Pt denies pain, agrees to tx. Pt on vapotherm Mental Status/Objective Patient Orientation: Normal For Age Attachments: Oxygen Current Glasses/Contacts: Yes Hearing Aids: No Dentures/Partials: Yes Hand Dominance: Right Upper Extremity ROM WFL BUE Upper Extremity Coordination WFL BUE Upper Extremity Sensation WFL BUE Upper Extremity Strength WFL BUE (4/5) ADL-Treatment Eating (QC): 6 Oral Hygiene (QC): 6 (per clinical judgment in sit.) Toileting Hygiene (QC): 4 (CGA in stance during sina care.) Other Treatments Pt completes oral hx in chair. MMT/ ROM WFL. Pt sit to stand with CGA, ambulates to BSC (~5 steps), sits with control. Pt able to manipulate LB dressing. Pt completes urination, stands SBA and wipes with fair control (CGA). Pt sits in recliner, then desires to get to bed. Bed mob with min A , HOB elevated and education on benefits of upright positioning. Pt in bed end of session with all needs met, call light in reach. Education on continued OT to address higher fx IND/ balance/ ther ex. Education OT Patient Education: Correct positioning, Purpose of tx/functional activities, Safety issues, Transfer techniques Teaching Recipient: Patient Teaching Methods: Demonstration, Discussion Response to Teaching: Verbalize Understanding, Return Demonstration OT [facility] Goals Manufacturing Technician Goals Time Frame: Aug 23, 2020 Eating (QC): 6 Oral Hygiene (QC): 6 Toileting Hygiene (QC): 6 Shower/Bathe Self (QC): 6 Upper Body Dressing (QC): 6 Lower Body Dressing (QC): 6 On/Off Footwear (QC): 6 Additional Goals: 1-Demonstrate ADL Tasks, 2-Verbalize Understanding, 3- ImproveStrength/Chandu 1=Demonstrate adherence to instructed precautions during ADL tasks. 2=Patient will verbalize/demonstrate understanding of assistive devices/modifications for ADL. 3=Patient will improve strength/tolerance for activity to enable patient to perform ADL's. OT Education/Plan Problem List/Assessment Assessment: Decreased Activ Tolerance, Dependent Transfers, Impaired Bed Mobility, Impaired Cognition, Impaired Funct Balance, Impaired I ADL's, Impaired Self-Care Skills Discharge Recommendations Plan/Recommendations: Continue POC Therapy Discharge Recommendati: Home & Family, Post Acute OT Treatment Plan/Plan of Care Treatment,Training & Education: Yes Patient would benefit from OT for education, treatment and training to promote independence in ADL's, mobility, safety and/or upper extremity function for ADL's. Plan of Care: ADL Retraining, Caregiver Training, Functional Mobility, UE Funct Exercise/Act Treatment Duration: Aug 23, 2020 Frequency: 5 times per week Estimated Hrs Per Day: .25 hour per day Agreement: Yes Rehab Potential: Fair Time/GCodes Start Time: 12:27 Stop Time: 12:47 Total Time Billed (hr/min): 20 Billed Treatment Time 1, EVM (20) MAINOR GAO OTR Aug 16, 2020 15:33
[2020-08-16] MEDS ORDERED: methylPREDNISolone 40 MG/ML (Solu-MEDROL) VIAL IV SCH (15:45)
[2020-08-16] MEDS ORDERED: FUROSEMIDE 40 MG/4 ML INJ (LASIX) IVP NR (15:45)
--- NOTE | 2020-08-16 15:50 | Pulmonary Consultation ---
History of Present Illness History of Present Illness Date Seen by Provider: Aug 16, 2020 Time Seen by Provider: 15:46 Date of Admission Allergies and Home Medications Allergies Coded Allergies: adhesive tape (Verified Adverse Reaction, Intermediate, 02/01/17) blisters Home Medications Atorvastatin Calcium 20 Mg Tablet, 20 MG PO HS, (Reported) Brimonidine Tartrate/Timolol 5 Ml Drops, 1 DROP OU BID, (Reported) Cetirizine HCl 10 Mg Tablet, 10 MG PO DAILY, (Reported) Citalopram Hydrobromide 20 Mg Tablet, 20 MG PO DAILY, (Reported) Dorzolamide HCl 10 Ml Drops, 1 DROP OU BID, (Reported) Latanoprost/Pf 7.5 Ml Drops, 1 DROP OU BID, (Reported) Multivitamin 1 Each Tablet, 1 TAB PO DAILY, (Reported) Vit A/Vit C/Vit E/Zinc/Copper 1 Each Tablet, 1 EACH PO DAILY, (Reported) Warfarin Sodium 3 Mg Tablet, 3 MG PO HS, (Reported) Past Rxynurg-Jpyrvy-Byhpth Hx Past Med/Social Hx: Reviewed Nursing Past Med/Soc Hx Patient Social History Alcohol Use: Denies Use Smoking Status: Never a Smoker 2nd Hand Smoke Exposure: No Recent Infectious Disease Expo: No Recent Hopitalizations: Yes Have you traveled recently?: No Alcohol Use?: No Immunizations Up To Date Tetanus Booster (TDap): Unknown PED Vaccines UTD: No Date of Pneumonia Vaccine: Feb 02, 2011 Date of Influenza Vaccine: Feb 03, 2020 Seasonal Allergies Seasonal Allergies: No Past Medical History Surgeries: Yes (right total hip replaced, then a right hip pinning, R CTR, umb hernia) Bladder Surgery, Hysterectomy, Oophorectomy, Orthopedic, Vascular Surgery Respiratory: Yes Pulmonary Embolism Currently Using CPAP: No Currently Using BIPAP: No Cardiac: No High Cholesterol, Hypertension Neurological: No Reproductive Disorders: Yes Female Reproductive Disorders: Denies Sexually Transmitted Disease: No HIV/AIDS: No Genitourinary: No Gastrointestinal: Yes Diverticulosis, Polyps Musculoskeletal: Yes Arthritis, Fractures Endocrine: No Loss of Vision: Denies Hearing Impairment: Denies Cancer: No Psychosocial: No Integumentary: Yes (moles removed) Blood Disorders: Yes (ANEMIA, POST OP BLOOD TRANSFUSION) Adverse Reaction/Blood Tranf: No Family Medical History Neoplasm 19 FATHER (colon cancer) 19 MOTHER (leukemia) G8 BROTHER (blood disease) Hypertension Review of Systems Time Seen by Provider: 15:50 Sepsis Event Evaluation Height, Weight, BMI Height: 5'7.00" Weight: 170lbs. 0.0oz. 77.719626bv; 28.32 BMI Method:Stated Exam Exam Vital Signs Date Time Temp Pulse Resp B/P (MAP) Pulse Ox O2 Delivery O2 Flow Rate FiO2 08/16/20 12:08 37.0 77 16 125/62 (83) 92 Vapotherm 30.00 70.00 08/16/20 11:00 90 Vapotherm 30.00 70 08/16/20 09:00 Vapotherm 30.00 70 08/16/20 08:15 37.0 84 17 135/68 (90) 90 Vapotherm 30.00 70.00 08/16/20 08:00 37.0 84 20 135/68 (90) 90 Vapotherm 30.00 70.00 08/16/20 07:13 90 Vapotherm 30.00 70 08/16/20 04:00 37.2 75 18 146/75 (98) 93 Vapotherm 30.00 70.00 08/16/20 02:57 87 Vapotherm 30.00 70 08/16/20 02:17 91 Vapotherm 30.00 70 08/16/20 00:00 36.4 69 18 121/69 (86) 95 Vapotherm 30.00 70.00 08/15/20 21:43 90 Vapotherm 30.00 70 08/15/20 20:42 91 Vapotherm 30.00 70 08/15/20 20:00 38.6 92 22 145/70 (95) 91 Vapotherm 30.00 70.00 08/15/20 18:49 38.7 08/15/20 18:39 90 Vapotherm 30.00 60 08/15/20 16:06 75 90 60 I & O 08/16/20 07:00 Intake Total 1840 ml Balance 1840 ml Height & Weight Height: 5'7.00" Weight: 170lbs. 0.0oz. 77.202531wb; 28.32 BMI Method:Stated General Appearance: WD/WN, Anxious, Moderate Distress HEENT: PERRL/EOMI, Normal ENT Inspection Neck: Full Range of Motion, Supple Respiratory: Crackles, Decreased Breath Sounds, Rales (right ), Rhonci (right) Cardiovascular: Regular Rate, Rhythm, Systolic Murmur Capillary Refill: Less Than 3 Seconds Gastrointestinal: normal bowel sounds, non tender, soft Extremity: Non Tender, No Calf Tenderness, No Pedal Edema Neurologic/Psychiatric: Alert, Oriented x3, Normal Mood/Affect, paleobotanist II-XII Norm as Tested Skin: Normal Color, Warm/Dry Results Lab Laboratory Tests 08/15/20 05:54 Assessment/Plan Assessment/Plan Acute worsening Respiratory failure -BiPAP PRN/Vapotherm -Check ABG -Change breathing txs to Duoneb Q 4 -Start solumedrol -Give Lasix 40mg IV x 1 -Repeat Labs Pneumonia -Continue Merrem -Repeat Ayala cultures 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
[2020-08-16] MEDS: ENOXAPARIN 80 MG/0.8 ML (LOVENOX) SYR SC SCH (16:01)
[2020-08-16 16:14] LABS: HEMOGLOBIN 9.8 g/dL (11.5-16.0); MEAN PLATELET VOLUME 9.9 fL (9.0-12.2); WHITE BLOOD COUNT 10.4 10^3/uL (4.3-11.0)
[2020-08-16 16:26] LABS: ALBUMIN 3.3 GM/DL (3.2-4.5); CHLORIDE 98 MMOL/L (98-107); POTASSIUM 4.2 MMOL/L (3.6-5.0); SODIUM 128 MMOL/L (135-145)
[2020-08-16 16:29] LABS: GLUCOSE 101 MG/DL (70-105); TOTAL PROTEIN 6.6 GM/DL (6.4-8.2)
[2020-08-16 16:30] LABS: BILIRUBIN,TOTAL 0.9 MG/DL (0.1-1.0); CARBON DIOXIDE 20 MMOL/L (21-32)
[2020-08-16 16:32] LABS: ALKALINE PHOSPHATASE 68 U/L (40-136); PHOSPHORUS 1.7 MG/DL (2.3-4.7)
[2020-08-16 16:33] LABS: CREATININE SERUM 0.88 MG/DL (0.60-1.30); GFR ESTIMATED > 60
[2020-08-16 16:34] LABS: BUN/CREATININE RATIO 13
[2020-08-16 16:35] LABS: MAGNESIUM 1.6 MG/DL (1.6-2.4)
[2020-08-16 16:36] LABS: ALANINE AMINOTRANSFERASE 25 U/L (0-55)
[2020-08-16 17:03] LABS: ABG BASE EXCESS -2.1 MMOL/L (-2.5-2.5); ABG OXYGEN SATURATION 97 % (94-100); ABG PCO2 28 MMHG (35-45); ABG PH 7.49 (7.37-7.43); ABG PO2 124 MMHG (79-93); ABG TCO2 21.7 MMOL/L (21.0-31.0); ALLENS TEST POS
[2020-08-16 17:04] LABS: INSPIRED O2 60%; PATIENT TEMP 37; VENTILATOR NO
[2020-08-16 17:13] LABS: BILIRUBIN,URINE NEGATIVE (NEGATIVE); CLARITY,URINE CLEAR; COLOR,URINE YELLOW; GLUCOSE, URINE (UA) NEGATIVE (NEGATIVE); KETONES,URINE NEGATIVE (NEGATIVE); LEUKOCYTE ESTERASE ,URINE NEGATIVE (NEGATIVE); NITRITE,URINE NEGATIVE (NEGATIVE); PROTEIN,URINE NEGATIVE (NEGATIVE)
[2020-08-16 17:24] LABS: BACTERIA,URINE NEGATIVE /HPF; WBC,URINE RARE /HPF
[2020-08-16] MEDS: warFARin 1 MG (COUMADIN) TAB PO SCH (17:48)
[2020-08-16] MEDS: RT-ALBUTEROL/IPRATROPIUM 3 ML (DUONEB) VIAL INH SCH ×2 (18:37→21:31)
[2020-08-16] MEDS: methylPREDNISolone 40 MG/ML (Solu-MEDROL) VIAL IV SCH (21:01)
[2020-08-17] MEDS ORDERED: WATER (STERILE) FOR INJECTION 10 ML ONE (01:42)
[2020-08-17] MEDS ORDERED: MEROPENEM 500 MG VIAL (MERREM) IV ONE (01:42)
[2020-08-17] MEDS: RT-ALBUTEROL/IPRATROPIUM 3 ML (DUONEB) VIAL INH SCH ×6 (02:09→21:40)
[2020-08-17] MEDS: MEROPENEM 500 MG/SWFI 10 ML IV PUSH IV SCH ×6 (02:22→17:35)
[2020-08-17 03:43] LABS: INR 1.7 (0.8-1.4); PROTHROMBIN TIME PATIENT 19.9 SEC (12.2-14.7)
[2020-08-17 04:12] LABS: CALCIUM 9.5 MG/DL (8.5-10.1); CREATININE SERUM 0.93 MG/DL (0.60-1.30); MAGNESIUM 1.7 MG/DL (1.6-2.4); PHOSPHORUS 3.3 MG/DL (2.3-4.7)
[2020-08-17 04:20] LABS: ABG BASE EXCESS -1.6 MMOL/L (-2.5-2.5); ABG OXYGEN SATURATION 99 % (94-100); ABG PCO2 28 MMHG (35-45); ABG PH 7.49 (7.37-7.43); ABG PO2 129 MMHG (79-93); ABG TCO2 22.4 MMOL/L (21.0-31.0)
[2020-08-17 04:22] LABS: ALLENS TEST YES-POS
[2020-08-17 04:23] LABS: INSPIRED O2 60%; PATIENT TEMP 36.1; VENTILATOR NO
[2020-08-17] MEDS: MAGNESIUM 1 GM/100 ML IVPB 100 ML IV SCH ×3 (04:34→06:20)
[2020-08-17] MEDS: KCL 20 MEQ TAB (K-DUR) PO SCH (04:34)
[2020-08-17] MEDS: POTASSIUM CL 10MEQ/50ML IVPB 50 ML IV SCH (04:34)
[2020-08-17 04:35] LABS: BASOPHILS % (AUTO) 0 % (0-10); EOSINOPHILS % (AUTO) 0 % (0-10); HEMATOCRIT 32 % (35-52); HEMOGLOBIN 10.5 g/dL (11.5-16.0); LYMPHOCYTES # (AUTO) 0.6 10^3/uL (1.0-4.0); LYMPHOCYTES % (AUTO) 7 % (12-44); MEAN CORPUSCULAR HEMOGLOBIN 30 pg (25-34); MEAN CORPUSCULAR HGB CONC 33 g/dL (32-36); MEAN CORPUSCULAR VOLUME 92 fL (80-99); MONOCYTES # (AUTO) 0.4 10^3/uL (0.0-1.0); MONOCYTES % (AUTO) 5 % (0-12); NEUTROPHILS # (AUTO) 8.4 10^3/uL (1.8-7.8); NEUTROPHILS % (AUTO) 88 % (42-75); PLATELET COUNT 246 10^3/uL (130-400); WHITE BLOOD COUNT 9.5 10^3/uL (4.3-11.0)
--- NOTE | 2020-08-17 04:36 | Pulmonary Progress Note ---
KATLYN DELUNA MED STUDENT 08/17/20 0436: Subjective Date Seen by a Provider: Aug 17, 2020 Time Seen by a Provider: 04:30 Subjective/Events-last exam Pt reports she feels like her breathing is better, denies any complaints. Sepsis Event Evaluation Height, Weight, BMI Height: 5'7.00" Weight: 170lbs. 0.0oz. 77.037592cr; 28.32 BMI Method:Stated Focused Exam Lactate Level 08/16/20 16:04: Lactic Acid Level 1.05 Exam Exam Vital Signs Date Time Temp Pulse Resp B/P (MAP) Pulse Ox O2 Delivery O2 Flow Rate FiO2 08/17/20 03:00 65 18 125/66 (85) 98 NIV Bilevel 60.00 08/17/20 02:25 35.8 90 NIV Bilevel 60.00 08/17/20 02:09 63 24 91 50.00 08/17/20 02:00 62 21 103/60 (74) 91 NIV Bilevel 50.00 08/17/20 01:00 62 29 112/63 (79) 97 NIV Bilevel 50.00 08/17/20 01:00 64 08/17/20 00:00 66 27 122/68 (86) 97 NIV Bilevel 50.00 08/16/20 23:00 68 27 135/71 (92) 97 NIV Bilevel 50.00 08/16/20 22:00 72 27 119/66 (83) 95 NIV Bilevel 50.00 08/16/20 21:31 81 24 90 50.00 08/16/20 21:00 71 17 122/65 (84) 95 NIV Bilevel 50.00 08/16/20 21:00 94 NIV Bilevel 50 08/16/20 20:00 76 36 93 NIV Bilevel 50.00 08/16/20 19:32 36.5 08/16/20 19:00 82 08/16/20 19:00 78 13 94 NIV Bilevel 50.00 08/16/20 18:37 81 24 90 50.00 08/16/20 18:00 121/65 (83) 92 NIV Bilevel 50.00 08/16/20 17:38 NIV Bilevel 50.00 08/16/20 17:00 79 134/72 (92) 95 NIV Bilevel 60.00 08/16/20 16:37 79 08/16/20 16:35 80 24 125/69 (87) 95 NIV Bilevel 60.00 08/16/20 16:35 NIV Bilevel 60 08/16/20 15:42 76 24 98 80.00 08/16/20 12:08 37.0 77 16 125/62 (83) 92 Vapotherm 30.00 70.00 08/16/20 11:00 90 Vapotherm 30.00 70 08/16/20 09:00 Vapotherm 30.00 70 08/16/20 08:15 37.0 84 17 135/68 (90) 90 Vapotherm 30.00 70.00 08/16/20 08:00 37.0 84 20 135/68 (90) 90 Vapotherm 30.00 70.00 08/16/20 07:13 90 Vapotherm 30.00 70 I & O 08/17/20 07:00 Intake Total 1050 ml Output Total 1700 ml Balance -650 ml Height & Weight Height: 5'7.00" Weight: 170lbs. 0.0oz. 77.787209of; 28.32 BMI Method:Stated General Appearance: WD/WN HEENT: PERRL/EOMI, Normal ENT Inspection Neck: Full Range of Motion, Supple Respiratory: Crackles, Decreased Breath Sounds, Other (on BIPAP) Cardiovascular: Regular Rate, Rhythm, No Edema Capillary Refill: Less Than 3 Seconds Gastrointestinal: No distended Extremity: Non Tender, No Pedal Edema Neurologic/Psychiatric: Alert, Oriented x3, Normal Mood/Affect, metal alloy scientist II-XII Norm as Tested Skin: Normal Color, Warm/Dry Results Lab Laboratory Tests 08/15/20 05:54 08/16/20 16:04 08/17/20 03:00 Assessment/Plan Assessment/Plan Acute worsening Respiratory failure -BiPAP at 60% -Check ABG -Duoneb Q 4 -Start solumedrol -Give Lasix 40mg IV x 1 -Repeat Labs Pneumonia -Continue Merrem -Repeat Ayala cultures 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 INR today is 1.7 -Will add theraputic dose lovenox until INR is > 2 SAMANTHA GUILLAUME DO 08/17/20 0522: Exam Exam General Appearance: WD/WN HEENT: PERRL/EOMI, Normal ENT Inspection Neck: Full Range of Motion, Supple Respiratory: Crackles, Decreased Breath Sounds Cardiovascular: Regular Rate, Rhythm, No Edema Extremity: Non Tender Neurologic/Psychiatric: Alert, Oriented x3, Normal Mood/Affect, metal alloy scientist II-XII Norm as Tested Skin: Normal Color, Warm/Dry Assessment/Plan Assessment/Plan Acute worsening Respiratory failure -BiPAP at 50% -Check ABG -Duoneb Q 4 -solumedrol 40 Q6 -Duoneb add mucomyst -Repeat Lasix 40mg IV x 1 -Repeat Labs Pneumonia -Continue Merrem -Repeat Ayala cultures 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
[2020-08-17] MEDS: ENOXAPARIN 80 MG/0.8 ML (LOVENOX) SYR SC SCH (04:47)
[2020-08-17] MEDS: methylPREDNISolone 40 MG/ML (Solu-MEDROL) VIAL IV SCH ×4 (04:47→22:26)
[2020-08-17 05:11] LABS: BAND NEUTROPHILS 1 %; LYMPHOCYTES % (MANUAL) 6 %; MONOCYTES % (MANUAL) 4 %; NEUTROPHILS % (MANUAL) 89 %; RBC MORPH NORMAL
[2020-08-17] MEDS ORDERED: FUROSEMIDE 40 MG/4 ML INJ (LASIX) IVP ONE (05:30)
[2020-08-17] MEDS ORDERED: KCL 20 MEQ TAB (K-DUR) PO ONE (08:00)
--- NOTE | 2020-08-17 08:16 | Physical Therapy Progress Note ---
Therapy Progress Note Patient transferred to ICU secondary to increase in O2 demand. PT will require new orders to resume therapy when deemed medically stable and able to actively participate with skilled therapy. BRAIN LEROY PT Aug 17, 2020 08:16
--- NOTE | 2020-08-17 08:49 | Progress Note ---
Subjective Subjective Date Seen by Provider: Aug 17, 2020 Time Seen by Provider: 08:30 INTERVAL EVENTS CALL FROM RT YESTERDAY AFTERNOON CONCERNED ABOUT PT'S RESPIRATORY STATUS - WITH INCREASE IN VAPOTHERM TO 80% - PT WAS TRANSFERRED UP TO ICU AND CONSULT PLACED TO DR. GUILLAUME FOR PULM/CRITICAL CARE EVAL OF PT. TODAY VAPOTHERM DOWN TO 30LPM AT 80% TODAY PT REPORTS THAT SHE IS FEELING...FATIGUED, FAMILY IN ROOM, AND CONCERNED ABOUT HER COUGH, SEEMS TO BE A LITTLE LOOSER THIS MORNING THAN YESTERDAY. Review of Systems General: No Chills; Fatigue HEENT: No Head Aches, No Visual Changes Pulmonary: Dyspnea, Cough Cardiovascular: No: Chest Pain, Palpitations Gastrointestinal: No: Nausea, Abdominal Pain, Diarrhea Genitourinary: No Dysuria Neurological: No: Weakness, Confusion Objective Exam Vital Signs Vital Signs - First Documented 08/11/20 08/11/20 08/11/20 17:55 19:50 22:33 Temp 38.5 Pulse 80 Resp 16 B/P (MAP) 116/98 (104) Pulse Ox 85 O2 Delivery Room Air O2 Flow Rate 2.00 FiO2 28 Capillary Refill : Less Than 3 Seconds General Appearance: WD/WN Eyes: Bilateral Eye Normal Inspection, Bilateral Eye PERRL, Bilateral Eye EOMI HEENT: PERRL/EOMI, Normal ENT Inspection Neck: Full Range of Motion, Supple Respiratory: Crackles, Decreased Breath Sounds Cardiovascular: Regular Rate, Rhythm, No Edema Gastrointestinal: Normal Bowel Sounds, Non Tender, Soft Rectal: Deferred Back: No CVA Tenderness Extremity: Non Tender Neurologic/Psychiatric: Alert, Oriented x3, Normal Mood/Affect, loading unit operator seating II-XII Norm as Tested Skin: Normal Color, Warm/Dry Results Lab Laboratory Tests 08/16/20 15:41: D-Dimer 0.77H 08/16/20 16:04: White Blood Count 10.4, Red Blood Count 3.21L, Hemoglobin 9.8L, Hematocrit 30L, Mean Corpuscular Volume 92, Mean Corpuscular Hemoglobin 31, Mean Corpuscular Hemoglobin Concent 33, Red Cell Distribution Width 13.5, Platelet Count 201, Mean Platelet Volume 9.9, Sodium Level 128L, Potassium Level 4.2, Chloride Level 98, Carbon Dioxide Level 20L, Anion Gap 10, Blood Urea Nitrogen 11, Creatinine 0.88, Estimat Glomerular Filtration Rate > 60, BUN/Creatinine Ratio 13, Glucose Level 101, Lactic Acid Level 1.05, Calcium Level 9.0, Corrected Calcium 9.6, Phosphorus Level 1.7L, Magnesium Level 1.6, Total Bilirubin 0.9, Aspartate Amino Transf (AST/SGOT) 31, Alanine Aminotransferase (ALT/SGPT) 25, Alkaline Phosphatase 68, B-Type Natriuretic Peptide 121.3H, Total Protein 6.6, Albumin 3.3 08/16/20 16:53: Blood Gas Puncture Site LT RAD, Blood Gas Patient Temperature 37, Arterial Blood pH 7.49H, Arterial Blood Partial Pressure CO2 28L, Arterial Blood Partial Pressure O2 124H, Arterial Blood HCO3 21L, Arterial Blood Total CO2 21.7, Arterial Blood Oxygen Saturation 97, Arterial Blood Base Excess -2.1, Edgar Test POS, Blood Gas Ventilator Setting NO, Blood Gas Inspired Oxygen 60% 08/16/20 17:00: Urine Color YELLOW, Urine Clarity CLEAR, Urine pH 7.0, Urine Specific [place] 1.010L, Urine Protein NEGATIVE, Urine Glucose (UA) NEGATIVE, Urine Ketones NEGATIVE, Urine Nitrite NEGATIVE, Urine Bilirubin NEGATIVE, Urine Urobilinogen 0.2, Urine Leukocyte Esterase NEGATIVE, Urine RBC (Auto) NEGATIVE, Urine RBC NONE, Urine WBC RARE, Urine Squamous Epithelial Cells NONE, Urine Renal Epithelial Cells NONE, Urine Crystals NONE, Urine Bacteria NEGATIVE, Urine Casts NONE, Urine Mucus NEGATIVE, Urine Culture Indicated NO 08/17/20 02:53: Prothrombin Time 19.9H, INR Comment 1.7H 08/17/20 03:00: White Blood Count 9.5, Red Blood Count 3.52L, Hemoglobin 10.5L, Hematocrit 32L, Mean Corpuscular Volume 92, Mean Corpuscular Hemoglobin 30, Mean Corpuscular Hemoglobin Concent 33, Red Cell Distribution Width 13.2, Platelet Count 246, Mean Platelet Volume 11.0, Immature Granulocyte % (Auto) 0, Neutrophils (%) (Auto) 88H, Lymphocytes (%) (Auto) 7L, Monocytes (%) (Auto) 5, Eosinophils (%) (Auto) 0, Basophils (%) (Auto) 0, Neutrophils # (Auto) 8.4H, Lymphocytes # (Auto) 0.6L, Monocytes # (Auto) 0.4, Eosinophils # (Auto) 0.0, Basophils # (Auto) 0.0, Immature Granulocyte # (Auto) 0.0, Neutrophils % (Manual) 89, Lymphocytes % (Manual) 6, Monocytes % (Manual) 4, Band Neutrophils 1, Blood Morphology Comment NORMAL, Sodium Level 130L, Potassium Level 4.0, Chloride Level 99, Carbon Dioxide Level 17L, Anion Gap 14, Blood Urea Nitrogen 15, Creatinine 0.93, Estimat Glomerular Filtration Rate 58, BUN/Creatinine Ratio 16, Glucose Level 147H, Calcium Level 9.5, Phosphorus Level 3.3, Magnesium Level 1.7 08/17/20 04:15: Blood Gas Puncture Site R RAD, Blood Gas Patient Temperature 36.1, Arterial Blood pH 7.49H, Arterial Blood Partial Pressure CO2 28L, Arterial Blood Partial Pressure O2 129H, Arterial Blood HCO3 22L, Arterial Blood Total CO2 22.4, Arterial Blood Oxygen Saturation 99, Arterial Blood Base Excess -1.6, Edgar Test YES-POS, Blood Gas Ventilator Setting NO, Blood Gas Inspired Oxygen 60% Microbiology 08/11/20 Blood Culture - Preliminary, Resulted No growth 08/11/20 Urine Culture - Final, Complete Escherichia coli 08/11/20 Influenza Types A,B Antigen (HILARIA) - Final, Complete Assessment/Plan Assessment/Plan Admission Dx ACUTE RESPIRATORY DISTRESS RIGHT SIDED PNEUMONIA ACUTE URINARY TRACT INFECTION HX DVT WITH PULMONARY EMBOLI DEPRESSION CHRONIC HYPERTENSION Assessment and Plan ACUTE RESPIRATORY DISTRESS RIGHT SIDED PNEUMONIA ACUTE URINARY TRACT INFECTION HX DVT WITH PULMONARY EMBOLI DEPRESSION CHRONIC HYPERTENSION ACUTE RESPIRATORY DISTRESS WITH RIGHT SIDED PNEUMONIA - ON VAPOTHERM - CONTINUE WITH WEANING ABLE. - IV ANTIBIOTICS OF MEROPENEM - REPEAT IMAGING CXR IN MORNING. 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 DEPRESSION - STABLE - ON HOME REGIMEN, RESUME CHRONIC HYPERTENSION - RESUME HOME REGIMEN. WILL REQUIRE A FEW MORE DAYS IN HOSPITAL FOR STABILIZATION AND WEANING OF OXYGEN Admission Dx ACUTE RESPIRATORY DISTRESS RIGHT SIDED PNEUMONIA ACUTE URINARY TRACT INFECTION HX DVT WITH PULMONARY EMBOLI DEPRESSION CHRONIC HYPERTENSION Clinical Quality Measures Admission Status Admission Dx ACUTE RESPIRATORY DISTRESS RIGHT SIDED PNEUMONIA ACUTE URINARY TRACT INFECTION HX DVT WITH PULMONARY EMBOLI DEPRESSION CHRONIC HYPERTENSION AJITH PENN MD Aug 17, 2020 08:49
[2020-08-17] MEDS: RT-ALBUTEROL INHALER HFA (VENTOLIN HFA) 18 GM IH SCH (08:54)
--- NOTE | 2020-08-17 08:59 | Diagnostic Imaging Report ---
INDICATION: Respiratory distress. Time of exam: 3:15 AM Correlation is made with prior chest from one day earlier. Heart size is stable. There has been improved aeration to left base since prior exam. Minimal residual infiltrate and fluid in the left base is noted. Right lung is fairly clear. There is no pneumothorax. IMPRESSION: Overall improved aeration to the left base when compared with examination one day earlier. Dictated by: Dictated on workstation # [id number]
[2020-08-17] MEDS ORDERED: ENOXAPARIN 40 MG/0.4 ML (LOVENOX) SYR SC NR (09:00)
[2020-08-17] MEDS: TIMOLOL MALEATE 0.25% (TIMOPTIC) 5 ML DROPS OU SCH ×2 (09:08→20:00)
[2020-08-17] MEDS: amLODIPine 2.5MG (NORVASC) TAB PO SCH (09:09)
[2020-08-17] MEDS: guaiFENesin (MUCINEX) 600 MG TAB PO SCH ×2 (09:09→20:00)
[2020-08-17] MEDS: aCETylcysteine 20% (MUCOMYST) 30ML SOLN VIAL INH SCH ×3 (09:35→21:40)
--- NOTE | 2020-08-17 13:50 | Occ Therapy Progress Note ---
Therapy Progress Note Pt. transferred to ICU due to change in medical status. Will continue to monitor. Will need new OT orders when pt. is medically stable. 1350 KATARZYNA DONG OT Aug 17, 2020 13:50
[2020-08-17] MEDS ORDERED: warFARin 2 MG (COUMADIN) TAB PO NR (21:00)
[2020-08-18] MEDS: RT-ALBUTEROL/IPRATROPIUM 3 ML (DUONEB) VIAL INH SCH ×6 (01:21→22:30)
[2020-08-18] MEDS: aCETylcysteine 20% (MUCOMYST) 30ML SOLN VIAL INH SCH ×4 (01:21→22:30)
[2020-08-18] MEDS: MEROPENEM 500 MG/SWFI 10 ML IV PUSH IV SCH ×6 (02:12→18:53)
[2020-08-18 03:27] LABS: BASOPHILS % (AUTO) 0 % (0-10); EOSINOPHILS % (AUTO) 0 % (0-10); HEMATOCRIT 33 % (35-52); HEMOGLOBIN 10.9 g/dL (11.5-16.0); LYMPHOCYTES # (AUTO) 1.4 10^3/uL (1.0-4.0); LYMPHOCYTES % (AUTO) 10 % (12-44); MEAN CORPUSCULAR HEMOGLOBIN 30 pg (25-34); MEAN CORPUSCULAR HGB CONC 34 g/dL (32-36); MEAN CORPUSCULAR VOLUME 89 fL (80-99); MEAN PLATELET VOLUME 9.8 fL (9.0-12.2); MONOCYTES # (AUTO) 0.9 10^3/uL (0.0-1.0); MONOCYTES % (AUTO) 6 % (0-12); NEUTROPHILS # (AUTO) 12.2 10^3/uL (1.8-7.8); NEUTROPHILS % (AUTO) 83 % (42-75); PLATELET COUNT 323 10^3/uL (130-400); WHITE BLOOD COUNT 14.7 10^3/uL (4.3-11.0)
[2020-08-18 03:52] LABS: CHLORIDE 96 MMOL/L (98-107); POTASSIUM 3.8 MMOL/L (3.6-5.0); SODIUM 130 MMOL/L (135-145)
[2020-08-18 03:53] LABS: CALCIUM 9.5 MG/DL (8.5-10.1)
[2020-08-18 03:54] LABS: GLUCOSE 149 MG/DL (70-105)
[2020-08-18 03:56] LABS: CARBON DIOXIDE 18 MMOL/L (21-32)
[2020-08-18 03:58] LABS: CREATININE SERUM 0.88 MG/DL (0.60-1.30); GFR ESTIMATED > 60; PHOSPHORUS 2.6 MG/DL (2.3-4.7)
[2020-08-18 03:59] LABS: BUN/CREATININE RATIO 24
[2020-08-18] MEDS: POTASSIUM CL 10MEQ/50ML IVPB 50 ML IV SCH (04:00)
[2020-08-18] MEDS: KCL 20 MEQ TAB (K-DUR) PO SCH (04:00)
[2020-08-18] MEDS: MAGNESIUM 1 GM/100 ML IVPB 100 ML IV SCH (04:03)
[2020-08-18] MEDS: methylPREDNISolone 40 MG/ML (Solu-MEDROL) VIAL IV SCH ×4 (04:14→21:29)
--- NOTE | 2020-08-18 06:13 | Pulmonary Progress Note ---
Subjective Time Seen by a Provider: 06:08 Subjective/Events-last exam Pt is currently sleeping with Vapotherm on. Sepsis Event Evaluation Height, Weight, BMI Height: 5'7.00" Weight: 170lbs. 0.0oz. [id number]; 28.32 BMI Method:Stated Focused Exam Lactate Level 08/16/20 16:04: Lactic Acid Level 1.05 Exam Exam Vital Signs Date Time Temp Pulse Resp B/P (MAP) Pulse Ox O2 Delivery O2 Flow Rate FiO2 08/18/20 05:00 61 8 141/75 (97) 94 Vapotherm 20.00 50.00 08/18/20 04:00 65 12 131/72 (91) 95 Vapotherm 20.00 50.00 08/18/20 03:00 76 12 153/86 (108) 94 Vapotherm 20.00 50.00 08/18/20 02:00 73 12 126/67 (86) 92 Vapotherm 20.00 50.00 08/18/20 02:00 Vapotherm 20.00 50.00 08/18/20 01:25 Vapotherm 25.00 50 08/18/20 01:22 Vapotherm 25.00 50 08/18/20 01:18 20.00 40.00 08/18/20 01:00 60 8 133/74 (93) 92 Vapotherm 25.00 40.00 08/18/20 00:00 36.5 08/18/20 00:00 67 16 123/104 (110) 89 Vapotherm 25.00 40.00 08/17/20 23:00 66 30 132/75 (94) 93 Vapotherm 25.00 40.00 08/17/20 22:53 25.00 40.00 08/17/20 22:00 61 17 136/77 (96) 96 08/17/20 21:46 Vapotherm 30.00 40 08/17/20 21:43 96 Vapotherm 30.00 45 08/17/20 21:00 63 12 115/83 (94) 96 Vapotherm 30.00 45.00 08/17/20 21:00 93 Vapotherm 30.00 40 08/17/20 20:00 69 19 123/87 (99) 94 Vapotherm 30.00 45.00 08/17/20 19:56 36.2 93 Vapotherm 30.00 45.00 08/17/20 19:00 74 27 130/77 (94) 92 Vapotherm 30.00 50.00 08/17/20 19:00 76 08/17/20 18:34 97 Vapotherm 30.00 50 08/17/20 18:00 69 17 110/64 (79) 94 Vapotherm 30.00 50.00 08/17/20 17:00 75 18 128/67 (87) 94 Vapotherm 30.00 50.00 08/17/20 16:00 70 18 126/68 (87) 93 Vapotherm 30.00 50.00 08/17/20 15:54 36.4 08/17/20 15:00 70 16 127/68 (87) 93 Vapotherm 30.00 50.00 08/17/20 14:10 Vapotherm 30.00 50.00 08/17/20 14:00 64 20 106/63 (77) 95 Vapotherm 30.00 70.00 08/17/20 13:00 60 08/17/20 13:00 67 22 119/59 (79) 94 Vapotherm 30.00 70.00 08/17/20 12:00 61 23 113/62 (79) 96 Vapotherm 30.00 70.00 08/17/20 12:00 36.2 08/17/20 11:00 63 20 127/62 (83) 97 Vapotherm 30.00 70.00 08/17/20 10:00 65 18 114/60 (78) 93 Vapotherm 30.00 70.00 08/17/20 09:31 95 Vapotherm 30.00 70 08/17/20 09:04 Vapotherm 30.00 70.00 08/17/20 09:00 63 20 122/66 (84) 94 NIV Bilevel 50.00 08/17/20 08:21 96 Vapotherm 30.00 50 08/17/20 08:00 64 18 110/73 (85) 94 NIV Bilevel 50.00 08/17/20 07:46 36.2 08/17/20 07:00 62 16 132/69 (90) 91 NIV Bilevel 50.00 08/17/20 07:00 76 08/17/20 06:30 94 Vapotherm 30.00 70 I & O 08/18/20 07:00 Intake Total 1350 ml Output Total 775 ml Balance 575 ml Height & Weight Height: 5'7.00" Weight: 170lbs. 0.0oz. 77.495870oo; 28.32 BMI Method:Stated General Appearance: WD/WN HEENT: PERRL/EOMI, Normal ENT Inspection Neck: Full Range of Motion, Supple Respiratory: Crackles, Decreased Breath Sounds Cardiovascular: Regular Rate, Rhythm, No Edema Capillary Refill: Less Than 3 Seconds Gastrointestinal: No distended Extremity: Non Tender Neurologic/Psychiatric: Alert, Normal Mood/Affect, parachute packer II-XII Norm as Tested Skin: Normal Color, Warm/Dry Results Lab Laboratory Tests 08/16/20 16:04 08/17/20 03:00 08/18/20 03:10 Assessment/Plan Assessment/Plan Acute Respiratory failure -Vapotherm 60% currently -Improving CXR -BiPAP PRN -Duoneb Q 4 -solumedrol 40 Q6 -Duoneb and mucomyst Pneumonia -Continue Merrem -Repeat Ayala cultures -- pending 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
[2020-08-18 06:26] LABS: INR 1.9 (0.8-1.4); PROTHROMBIN TIME PATIENT 22.5 SEC (12.2-14.7)
--- NOTE | 2020-08-18 07:15 | Diagnostic Imaging Report ---
Reason for examination: Respiratory distress. Upright AP portable view of the chest was obtained and compared to yesterday. The cardiomediastinal silhouette is within normal limits for size. Persistent left lower lobe infiltrate without much change. No new or expanding infiltrates. No heart failure or pneumothorax. Impression: 1. Left lower lobe infiltrate without much change since yesterday. Dictated by: Dictated on workstation # [id number]
--- NOTE | 2020-08-18 07:52 | Physical Therapy Progress Note ---
Therapy Progress Note Patient transferred to ICU secondary to increase in O2 demand. PT will require new orders to resume therapy when deemed medically stable and able to actively participate with skilled therapy. BRAIN LEROY PT Aug 18, 2020 07:51
[2020-08-18] MEDS: guaiFENesin (MUCINEX) 600 MG TAB PO SCH ×2 (09:16→19:37)
[2020-08-18] MEDS: amLODIPine 2.5MG (NORVASC) TAB PO SCH (09:16)
[2020-08-18] MEDS: TIMOLOL MALEATE 0.25% (TIMOPTIC) 5 ML DROPS OU SCH ×2 (09:17→19:38)
[2020-08-18] MEDS ORDERED: MEROPENEM 500 MG VIAL (MERREM) IV ONE (18:30)
[2020-08-18] MEDS ORDERED: WATER (STERILE) FOR INJECTION 10 ML ONE (18:30)
[2020-08-18] MEDS: warFARin 3 MG (COUMADIN) TAB PO SCH (18:53)
--- NOTE | 2020-08-18 22:03 | Progress Note ---
Subjective Subjective Date Seen by Provider: Aug 18, 2020 Time Seen by Provider: 08:20 PT FEELING BETTER TODAY - SHE REPORTS THAT SHE HAS HAD A LOT OF MUCOUS OUT OVER THE DAY YESTERDAY AND THIS MORNING. SHE REPORTS THAT SHE IS USING THE INCENTIVE SPIROMETER AND ACAPELLA DEVICE. Review of Systems General: No Chills; Fatigue HEENT: No Head Aches, No Visual Changes Pulmonary: Dyspnea, Cough Cardiovascular: No: Chest Pain, Palpitations Gastrointestinal: No: Nausea, Abdominal Pain, Diarrhea Genitourinary: No Dysuria Neurological: No: Weakness, Confusion Objective Exam Vital Signs Vital Signs - First Documented 08/12/20 08/13/20 00:00 23:39 Pulse 80 Resp 20 B/P (MAP) 112/72 (85) Pulse Ox 92 O2 Delivery Nasal Cannula O2 Flow Rate 4.00 FiO2 85 Capillary Refill : Less Than 3 Seconds General Appearance: No Apparent Distress, WD/WN Eyes: Bilateral Eye Normal Inspection, Bilateral Eye PERRL, Bilateral Eye EOMI HEENT: PERRL/EOMI, Normal ENT Inspection Neck: Full Range of Motion, Supple Respiratory: Crackles (IMPROVED), Decreased Breath Sounds Cardiovascular: Regular Rate, Rhythm, No Edema Gastrointestinal: Normal Bowel Sounds, Non Tender, Soft Rectal: Deferred Back: No CVA Tenderness Extremity: Non Tender Neurologic/Psychiatric: Alert, Oriented x3, Normal Mood/Affect, supervisor long goods II-XII Norm as Tested Skin: Normal Color, Warm/Dry Results Lab Laboratory Tests 08/18/20 03:10: White Blood Count 14.7H, Red Blood Count 3.64L, Hemoglobin 10.9L, Hematocrit 33L , Mean Corpuscular Volume 89, Mean Corpuscular Hemoglobin 30, Mean Corpuscular Hemoglobin Concent 34, Red Cell Distribution Width 13.0, Platelet Count 323, Mean Platelet Volume 9.8, Immature Granulocyte % (Auto) 1, Neutrophils (%) (Auto) 83H, Lymphocytes (%) (Auto) 10L, Monocytes (%) (Auto) 6, Eosinophils (%) (Auto) 0, Basophils (%) (Auto) 0, Neutrophils # (Auto) 12.2H, Lymphocytes # (Auto) 1.4, Monocytes # (Auto) 0.9, Eosinophils # (Auto) 0.0, Basophils # (Auto) 0.0, Immature Granulocyte # (Auto) 0.2H, Prothrombin Time 22.5H, INR Comment 1 .9H, Sodium Level 130L, Potassium Level 3.8, Chloride Level 96L, Carbon Dioxide Level 18L, Anion Gap 16H, Blood Urea Nitrogen 21H, Creatinine 0.88, Estimat Glomerular Filtration Rate > 60, BUN/Creatinine Ratio 24, Glucose Level 149H, Calcium Level 9.5, Phosphorus Level 2.6, Magnesium Level 2.0, Procalcitonin 0.16H Microbiology 08/16/20 Blood Culture - Preliminary, Resulted No growth 08/11/20 Urine Culture - Final, Complete Escherichia coli 08/11/20 Influenza Types A,B Antigen (HILARIA) - Final, Complete Assessment/Plan Assessment/Plan Admission Dx ACUTE RESPIRATORY DISTRESS RIGHT SIDED PNEUMONIA ACUTE URINARY TRACT INFECTION HX DVT WITH PULMONARY EMBOLI DEPRESSION CHRONIC HYPERTENSION Assessment and Plan ACUTE RESPIRATORY DISTRESS RIGHT SIDED PNEUMONIA ACUTE URINARY TRACT INFECTION HX DVT WITH PULMONARY EMBOLI DEPRESSION CHRONIC HYPERTENSION ACUTE RESPIRATORY DISTRESS WITH RIGHT SIDED PNEUMONIA - ON VAPOTHERM - CONTINUE WITH WEANING ABLE. - IV ANTIBIOTICS OF MEROPENEM - REPEAT IMAGING CXR IN MORNING. 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 WILL REQUIRE A FEW MORE DAYS IN HOSPITAL FOR STABILIZATION AND WEANING OF OXYGEN Admission Dx ACUTE RESPIRATORY DISTRESS RIGHT SIDED PNEUMONIA ACUTE URINARY TRACT INFECTION HX DVT WITH PULMONARY EMBOLI DEPRESSION CHRONIC HYPERTENSION Clinical Quality Measures Admission Status Admission Dx ACUTE RESPIRATORY DISTRESS RIGHT SIDED PNEUMONIA ACUTE URINARY TRACT INFECTION HX DVT WITH PULMONARY EMBOLI DEPRESSION CHRONIC HYPERTENSION AJITH PENN MD Aug 18, 2020 22:02
[2020-08-19 02:08] LABS: POTASSIUM 4.5 MMOL/L (3.6-5.0)
[2020-08-19 02:09] LABS: CALCIUM 9.5 MG/DL (8.5-10.1)
[2020-08-19 02:14] LABS: CREATININE SERUM 0.92 MG/DL (0.60-1.30)
[2020-08-19] MEDS ORDERED: MEROPENEM 500 MG VIAL (MERREM) IV ONE ×2 (02:15→16:44)
[2020-08-19] MEDS ORDERED: WATER (STERILE) FOR INJECTION 10 ML ONE (02:15)
[2020-08-19 02:17] LABS: BASOPHILS % (AUTO) 0 % (0-10); EOSINOPHILS % (AUTO) 0 % (0-10); HEMATOCRIT 31 % (35-52); HEMOGLOBIN 10.4 g/dL (11.5-16.0); LYMPHOCYTES # (AUTO) 0.9 10^3/uL (1.0-4.0); LYMPHOCYTES % (AUTO) 7 % (12-44); MEAN CORPUSCULAR HEMOGLOBIN 30 pg (25-34); MEAN CORPUSCULAR HGB CONC 33 g/dL (32-36); MEAN CORPUSCULAR VOLUME 91 fL (80-99); MEAN PLATELET VOLUME 10.2 fL (9.0-12.2); MONOCYTES # (AUTO) 0.7 10^3/uL (0.0-1.0); MONOCYTES % (AUTO) 5 % (0-12); NEUTROPHILS # (AUTO) 11.6 10^3/uL (1.8-7.8); NEUTROPHILS % (AUTO) 86 % (42-75); PLATELET COUNT 390 10^3/uL (130-400); WHITE BLOOD COUNT 13.6 10^3/uL (4.3-11.0)
[2020-08-19] MEDS: MEROPENEM 500 MG/SWFI 10 ML IV PUSH IV SCH ×6 (02:28→17:14)
[2020-08-19] MEDS: RT-ALBUTEROL/IPRATROPIUM 3 ML (DUONEB) VIAL INH SCH ×6 (02:50→22:14)
[2020-08-19] MEDS: aCETylcysteine 20% (MUCOMYST) 30ML SOLN VIAL INH SCH ×3 (02:54→14:41)
[2020-08-19] MEDS: methylPREDNISolone 40 MG/ML (Solu-MEDROL) VIAL IV SCH ×4 (04:16→20:26)
--- NOTE | 2020-08-19 06:54 | Progress Note ---
Subjective Subjective Date Seen by Provider: Aug 19, 2020 Time Seen by Provider: 06:30 Pt appears comfortable lying in bed doing her breathing treatment. States she thinks her breathing is improving and she is using her IS and acapella device. Pt coughing frequently during interview and exam. Cough sounds wet. No new complaints otherwise. Denies n/v/fever/chills/sob/cp. Review of Systems General: No Chills; Fatigue HEENT: No Head Aches, No Visual Changes Pulmonary: Dyspnea, Cough Cardiovascular: No: Chest Pain, Palpitations Gastrointestinal: No: Nausea, Abdominal Pain, Diarrhea Genitourinary: No Dysuria Neurological: No: Weakness, Confusion Objective Exam Vital Signs Vital Signs - First Documented 08/13/20 08/13/20 00:00 23:39 Temp 36.8 Pulse 72 Resp 19 B/P (MAP) 138/88 (105) Pulse Ox 93 O2 Delivery Nasal Cannula O2 Flow Rate 5.00 FiO2 85 Capillary Refill : Less Than 3 Seconds General Appearance: No Apparent Distress, WD/WN Eyes: Bilateral Eye Normal Inspection, Bilateral Eye PERRL, Bilateral Eye EOMI HEENT: PERRL/EOMI, Normal ENT Inspection Neck: Full Range of Motion, Supple Respiratory: Crackles (IMPROVED), Decreased Breath Sounds, Wheezing Cardiovascular: Regular Rate, Rhythm, No Edema Gastrointestinal: Normal Bowel Sounds, Non Tender, Soft Rectal: Deferred Back: No CVA Tenderness Extremity: Non Tender Neurologic/Psychiatric: Alert, Oriented x3, Normal Mood/Affect, pipe fitter ammonia II-XII Norm as Tested Skin: Normal Color, Warm/Dry Results Lab Laboratory Tests 08/19/20 01:19: White Blood Count 13.6H, Red Blood Count 3.43L, Hemoglobin 10.4L, Hematocrit 31L , Mean Corpuscular Volume 91, Mean Corpuscular Hemoglobin 30, Mean Corpuscular Hemoglobin Concent 33, Red Cell Distribution Width 13.2, Platelet Count 390, Mean Platelet Volume 10.2, Immature Granulocyte % (Auto) 2, Neutrophils (%) (Auto) 86H, Lymphocytes (%) (Auto) 7L, Monocytes (%) (Auto) 5, Eosinophils (%) (Auto) 0, Basophils (%) (Auto) 0, Neutrophils # (Auto) 11.6H, Lymphocytes # (Auto) 0.9L, Monocytes # (Auto) 0.7, Eosinophils # (Auto) 0.0, Basophils # (Auto) 0.0, Immature Granulocyte # (Auto) 0.3H, Sodium Level 130L, Potassium Level 4.5, Chloride Level 98, Carbon Dioxide Level 20L, Anion Gap 12, Blood Urea Nitrogen 24H, Creatinine 0.92, Estimat Glomerular Filtration Rate 58, BUN/Creatinine Ratio 26, Glucose Level 126H, Calcium Level 9.5 Microbiology 08/16/20 Blood Culture - Preliminary, Resulted No growth 08/11/20 Urine Culture - Final, Complete Escherichia coli 08/11/20 Influenza Types A,B Antigen (HILARIA) - Final, Complete Assessment/Plan Assessment/Plan Assessment and Plan ACUTE RESPIRATORY DISTRESS RIGHT SIDED PNEUMONIA ACUTE URINARY TRACT INFECTION HX DVT WITH PULMONARY EMBOLI DEPRESSION CHRONIC HYPERTENSION ACUTE RESPIRATORY DISTRESS WITH RIGHT SIDED PNEUMONIA - ON VAPOTHERM - CONTINUE WITH WEANING ABLE. - IV ANTIBIOTICS OF MEROPENEM - REPEAT IMAGING CXR IN MORNING. 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 WILL REQUIRE A FEW MORE DAYS IN HOSPITAL FOR STABILIZATION AND WEANING OF OXYGEN Supervisory-Addendum Brief Verification & Attestation Participated in pt care: history, MDM, physical Personally performed: exam, history, MDM, supervision of care Care discussed with: Medical Student Procedures: n/a Results interpretation: Verified all documentation SEE MY DOCUMENTATION BELOW FOR FULL DETAILS, STUDENT NOTE REVIEWED - CHANGES MADE TO PATIENT CARE FOLLOWS IN MY NOTE ACUTE RESPIRATORY DISTRESS RIGHT SIDED PNEUMONIA ACUTE URINARY TRACT INFECTION HX DVT WITH PULMONARY EMBOLI DEPRESSION CHRONIC HYPERTENSION ACUTE RESPIRATORY DISTRESS WITH RIGHT SIDED PNEUMONIA - ON HIGH FLOW OXYGEN AT 6 LITERS - WE WILL CONTINUE THE PROCESS OF WEANING ABLE. 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 DEPRESSION - STABLE - ON HOME REGIMEN, RESUME CHRONIC HYPERTENSION - RESUMED HOME REGIMEN. WILL REQUIRE A FEW MORE DAYS IN HOSPITAL FOR STABILIZATION AND WEANING OF OXYGEN CLEMENTE CHANCE STUDENT Aug 19, 2020 06:54 AJITH PENN MD Aug 19, 2020 10:56
[2020-08-19] MEDS: TIMOLOL MALEATE 0.25% (TIMOPTIC) 5 ML DROPS OU SCH ×2 (09:23→22:21)
[2020-08-19] MEDS: guaiFENesin (MUCINEX) 600 MG TAB PO SCH ×2 (09:23→20:25)
[2020-08-19] MEDS: amLODIPine 2.5MG (NORVASC) TAB PO SCH (09:23)
[2020-08-19 11:07] LABS: INR 2.3 (0.8-1.4); PROTHROMBIN TIME PATIENT 25.4 SEC (12.2-14.7)
[2020-08-19] MEDS: warFARin 3 MG (COUMADIN) TAB PO SCH (17:14)
[2020-08-20] MEDS ORDERED: MEROPENEM 500 MG VIAL (MERREM) IV ONE ×3 (00:57→16:20)
[2020-08-20] MEDS: MEROPENEM 500 MG/SWFI 10 ML IV PUSH IV SCH ×6 (01:10→17:24)
[2020-08-20] MEDS: RT-ALBUTEROL/IPRATROPIUM 3 ML (DUONEB) VIAL INH SCH ×6 (01:55→22:09)
[2020-08-20] MEDS: methylPREDNISolone 40 MG/ML (Solu-MEDROL) VIAL IV SCH ×4 (03:08→22:06)
[2020-08-20 04:13] LABS: POTASSIUM 4.9 MMOL/L (3.6-5.0)
[2020-08-20 04:14] LABS: CALCIUM 9.5 MG/DL (8.5-10.1)
[2020-08-20 04:18] LABS: CREATININE SERUM 0.92 MG/DL (0.60-1.30)
--- NOTE | 2020-08-20 07:16 | Progress Note ---
Subjective Subjective Date Seen by Provider: Aug 20, 2020 Time Seen by Provider: 06:50 Pt comfortable sitting up in bed. Oxygen requirement has steadily reduced over the weekend currently at 6 this morning. Reports her cough is still productive and feels like she starting to break up the pulmonary congestion. Sputum clear and stringy. Lungs sounds much improved today. Also reports increasing energy/strength. Only complaint is nasal dryness secondary to high flow and deviated septum. Denies n/v/fever/chills/cp. Review of Systems General: No Chills; Fatigue HEENT: No Head Aches, No Visual Changes Pulmonary: Dyspnea, Cough Cardiovascular: No: Chest Pain, Palpitations Gastrointestinal: No: Nausea, Abdominal Pain, Diarrhea Genitourinary: No Dysuria Neurological: No: Weakness, Confusion Objective Exam Vital Signs Vital Signs - First Documented 08/14/20 08/14/20 08/14/20 01:00 01:41 03:59 Temp 36.4 Pulse 63 Resp 22 B/P (MAP) 129/71 (90) Pulse Ox 98 O2 Delivery Vapotherm O2 Flow Rate 35.00 FiO2 90 Capillary Refill : Less Than 3 Seconds General Appearance: No Apparent Distress, WD/WN Eyes: Bilateral Eye Normal Inspection, Bilateral Eye PERRL, Bilateral Eye EOMI HEENT: PERRL/EOMI, Normal ENT Inspection Neck: Full Range of Motion, Supple Respiratory: Crackles (IMPROVED), Decreased Breath Sounds, Wheezing (IMPROVED) Cardiovascular: Regular Rate, Rhythm, No Edema Gastrointestinal: Normal Bowel Sounds, Non Tender, Soft Rectal: Deferred Back: No CVA Tenderness Extremity: Non Tender Neurologic/Psychiatric: Alert, Oriented x3, Normal Mood/Affect, relations liaison II-XII Norm as Tested Skin: Normal Color, Warm/Dry Results Lab Laboratory Tests 08/20/20 03:42: Sodium Level 131L, Potassium Level 4.9, Chloride Level 100, Carbon Dioxide Level 21, Anion Gap 10, Blood Urea Nitrogen 26H, Creatinine 0.92, Estimat Glomerular Filtration Rate 58, BUN/Creatinine Ratio 28, Glucose Level 136H, Calcium Level 9.5 Microbiology 08/16/20 Blood Culture - Preliminary, Resulted No growth 08/11/20 Urine Culture - Final, Complete Escherichia coli 08/11/20 Influenza Types A,B Antigen (HILARIA) - Final, Complete Assessment/Plan Assessment/Plan Assessment and Plan ACUTE RESPIRATORY DISTRESS RIGHT SIDED PNEUMONIA ACUTE URINARY TRACT INFECTION HX DVT WITH PULMONARY EMBOLI DEPRESSION CHRONIC HYPERTENSION NASAL CANAL IRRITATION ACUTE RESPIRATORY DISTRESS WITH RIGHT SIDED PNEUMONIA - ON VAPOTHERM - CONTINUE WITH WEANING ABLE. - IV ANTIBIOTICS OF MEROPENEM - REPEAT IMAGING CXR IN MORNING. 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 NASAL CANAL IRRITATION - PEDIATRIC CANNULA OR O2 MASK - [place] FOR LUBRICATION WILL REQUIRE A FEW MORE DAYS IN HOSPITAL FOR STABILIZATION AND WEANING OF OXYGEN Supervisory-Addendum Brief Verification & Attestation Participated in pt care: history, MDM, physical Personally performed: exam, history, MDM, supervision of care Care discussed with: Medical Student Procedures: n/a Results interpretation: Verified all documentation I AGREE WITH STUDENT NOTE DOCUMENTED EXCEPT FOLLOWS: LEFT NARE INFLAMED/PARTIALLY CLOSED OFF DUE TO SEPTAL DEVIATION - NARE ON LEFT WITH SLIGHT ULCERATION - NO GROSS BLOOD. LUNGS WITH CRACKLES IN BASES, IMPROVED AIR FLOW THROUGHOUT COMPARED TO YESTERDAY. PT ON 6 LITERS OXYGEN AND HAD BEEN ON 4.5 LITERS OXYGEN EARLIER IN THE MORNING. PT REPORTS MUCOUS THAT IS NOT COLORED NOW COMING OUT WHEN SHE IS COUGHING PLAN STATED IN STUDENT NOTE. CLEMENTE CHANCE STUDENT Aug 20, 2020 07:16 AJITH PENN MD Aug 20, 2020 14:40
[2020-08-20 08:00] VITALS: BP 126/72
[2020-08-20] MEDS: amLODIPine 2.5MG (NORVASC) TAB PO SCH (08:30)
[2020-08-20] MEDS: guaiFENesin (MUCINEX) 600 MG TAB PO SCH ×2 (08:30→19:30)
[2020-08-20] MEDS ORDERED: SOD CHL GEL 0.5 OZ (AYR SALINE NASAL GEL) TUBE TOP PRN (09:30)
[2020-08-20] MEDS ORDERED: WATER (STERILE) FOR INJECTION 10 ML ONE ×2 (09:57→16:20)
[2020-08-20] MEDS: TIMOLOL MALEATE 0.25% (TIMOPTIC) 5 ML DROPS OU SCH ×2 (10:12→19:30)
[2020-08-20 11:06] LABS: INR 2.3 (0.8-1.4); PROTHROMBIN TIME PATIENT 25.5 SEC (12.2-14.7)
[2020-08-20 12:00] VITALS: BP 138/78
[2020-08-20 16:18] VITALS: BP 151/75
[2020-08-20] MEDS: warFARin 3 MG (COUMADIN) TAB PO SCH (17:24)
[2020-08-20 20:00] VITALS: BP 150/79
[2020-08-20 23:37] VITALS: BP 145/69
[2020-08-21] MEDS: RT-ALBUTEROL/IPRATROPIUM 3 ML (DUONEB) VIAL INH SCH ×6 (02:32→22:30)
[2020-08-21] MEDS ORDERED: MEROPENEM 500 MG VIAL (MERREM) IV ONE (02:58)
[2020-08-21] MEDS ORDERED: WATER (STERILE) FOR INJECTION 10 ML ONE (02:58)
[2020-08-21] MEDS: methylPREDNISolone 40 MG/ML (Solu-MEDROL) VIAL IV SCH (03:09)
[2020-08-21] MEDS: MEROPENEM 500 MG/SWFI 10 ML IV PUSH IV SCH ×2 (03:09)
[2020-08-21 03:12] VITALS: BP 129/71
--- NOTE | 2020-08-21 05:10 | Pulmonary Progress Note ---
Subjective Time Seen by a Provider: 05:03 Subjective/Events-last exam PT is now on [address] [place] [address]. Sepsis Event Evaluation Height, Weight, BMI Height: 5'7.00" Weight: 170lbs. 0.0oz. 77.909060ul; 28.32 BMI Method:Stated Exam Exam Vital Signs Date Time Temp Pulse Resp B/P (MAP) Pulse Ox O2 Delivery O2 Flow Rate FiO2 08/21/20 03:12 36.1 59 18 129/71 (90) 94 High Flow N/C 6.00 08/21/20 02:33 93 High Flow N/C 6.00 08/21/20 00:28 54 08/20/20 23:37 37.0 54 18 145/69 (94) 99 High Flow N/C 6.00 08/20/20 22:09 94 High Flow N/C 6.00 08/20/20 20:00 36.1 63 16 150/79 (102) 96 High Flow N/C 6.00 08/20/20 19:30 High Flow N/C 6.00 08/20/20 19:00 61 08/20/20 18:44 94 High Flow N/C 6.00 08/20/20 16:18 36.0 64 18 151/75 (100) 91 High Flow N/C 6.00 08/20/20 14:45 94 High Flow N/C 6.00 08/20/20 13:00 66 08/20/20 12:00 35.8 68 20 138/78 (98) 95 High Flow N/C 6.00 08/20/20 10:34 92 High Flow N/C 6.00 08/20/20 09:00 High Flow N/C 6.00 08/20/20 08:00 36.2 69 20 126/72 (90) 92 High Flow N/C 6.00 08/20/20 07:00 67 08/20/20 06:35 90 High Flow N/C 4.50 I & O 08/21/20 07:00 Intake Total 1970 ml Balance 1970 ml Height & Weight Height: 5'7.00" Weight: 170lbs. 0.0oz. 77.219326he; 28.32 BMI Method:Stated General Appearance: No Apparent Distress, WD/WN HEENT: PERRL/EOMI, Normal ENT Inspection Neck: Full Range of Motion, Supple Respiratory: Crackles (IMPROVED), Decreased Breath Sounds, Wheezing (IMPROVED) Cardiovascular: Regular Rate, Rhythm, No Edema Capillary Refill: Less Than 3 Seconds Gastrointestinal: No distended Extremity: Non Tender Neurologic/Psychiatric: Alert, Oriented x3, Normal Mood/Affect, segment producer II-XII Norm as Tested Skin: Normal Color, Warm/Dry Results Lab Laboratory Tests 08/20/20 03:42 Assessment/Plan Assessment/Plan Acute Respiratory failure -Now on 6 liter NC -Repeat SOB -BiPAP PRN -Duoneb Q 4 -solumedrol 40 Q6 -- change to prednisone taper -Duoneb and mucomyst Pneumonia - Merrem - restart -Repeat PCT and BNP -Repeat Ayala cultures -- pending 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
[2020-08-21 05:49] LABS: HEMOGLOBIN 10.9 g/dL (11.5-16.0); MEAN PLATELET VOLUME 9.4 fL (9.0-12.2); WHITE BLOOD COUNT 16.3 10^3/uL (4.3-11.0)
[2020-08-21 06:06] LABS: CHLORIDE 100 MMOL/L (98-107); INR 2.2 (0.8-1.4); POTASSIUM 4.9 MMOL/L (3.6-5.0); PROTHROMBIN TIME PATIENT 24.6 SEC (12.2-14.7); SODIUM 131 MMOL/L (135-145)
[2020-08-21 06:07] LABS: CALCIUM 9.5 MG/DL (8.5-10.1)
[2020-08-21 06:08] LABS: GLUCOSE 131 MG/DL (70-105)
[2020-08-21 06:09] LABS: CARBON DIOXIDE 21 MMOL/L (21-32)
[2020-08-21 06:12] LABS: CREATININE SERUM 0.83 MG/DL (0.60-1.30); GFR ESTIMATED > 60
[2020-08-21 06:13] LABS: BUN/CREATININE RATIO 28
--- NOTE | 2020-08-21 07:54 | Progress Note ---
Subjective Subjective Date Seen by Provider: Aug 21, 2020 Time Seen by Provider: 07:40 Pt sitting up in bed eating breakfast. High flow O2 at 5.5 this morning and reports no worsening dypsnea. Nasal discomfort being managed with cream application to her stenotic nasal passage. Lung sounds improving. No new complaints. Denies n/v/fever/chills/cp. Review of Systems General: No Chills; Fatigue HEENT: No Head Aches, No Visual Changes Pulmonary: Dyspnea, Cough Cardiovascular: No: Chest Pain, Palpitations Gastrointestinal: No: Nausea, Abdominal Pain, Diarrhea Genitourinary: No Dysuria Neurological: No: Weakness, Confusion Objective Exam Vital Signs Vital Signs - First Documented 08/15/20 08/15/20 08/15/20 01:00 02:16 03:22 Temp 37.2 Pulse 73 Resp 18 B/P (MAP) 121/65 (83) Pulse Ox 84 O2 Delivery Vapotherm O2 Flow Rate 25.00 FiO2 60 Capillary Refill : Less Than 3 Seconds General Appearance: No Apparent Distress, WD/WN Eyes: Bilateral Eye Normal Inspection, Bilateral Eye PERRL, Bilateral Eye EOMI HEENT: PERRL/EOMI, Normal ENT Inspection Neck: Full Range of Motion, Supple Respiratory: Crackles (IMPROVED), Decreased Breath Sounds, Wheezing (IMPROVED) Cardiovascular: Regular Rate, Rhythm, No Edema Gastrointestinal: Normal Bowel Sounds, Non Tender, Soft Rectal: Deferred Back: No CVA Tenderness Extremity: Non Tender Neurologic/Psychiatric: Alert, Oriented x3, Normal Mood/Affect, public relations counselor II-XII Norm as Tested Skin: Normal Color, Warm/Dry Results Lab Laboratory Tests 08/21/20 05:23: White Blood Count 16.3H, Red Blood Count 3.64L, Hemoglobin 10.9L, Hematocrit 33L , Mean Corpuscular Volume 92, Mean Corpuscular Hemoglobin 30, Mean Corpuscular Hemoglobin Concent 33, Red Cell Distribution Width 13.2, Platelet Count 379, M coty Platelet Volume 9.4, Prothrombin Time 24.6H, INR Comment 2.2H, Sodium Level 131L, Potassium Level 4.9, Chloride Level 100, Carbon Dioxide Level 21, Anion Gap 10, Blood Urea Nitrogen 23H, Creatinine 0.83, Estimat Glomerular Filtration Rate > 60, BUN/Creatinine Ratio 28, Glucose Level 131H, Calcium Level 9.5, B- Type Natriuretic Peptide 107.1H, Procalcitonin 0.05 Microbiology 08/16/20 Blood Culture - Preliminary, Resulted No growth 08/11/20 Urine Culture - Final, Complete Escherichia coli 08/11/20 Influenza Types A,B Antigen (HILARIA) - Final, Complete Assessment/Plan Assessment/Plan Assessment and Plan ACUTE RESPIRATORY DISTRESS RIGHT SIDED PNEUMONIA ACUTE URINARY TRACT INFECTION HX DVT WITH PULMONARY EMBOLI DEPRESSION CHRONIC HYPERTENSION NASAL CANAL IRRITATION ACUTE RESPIRATORY DISTRESS WITH RIGHT SIDED PNEUMONIA - ON VAPOTHERM - CONTINUE WITH WEANING ABLE. - IV ANTIBIOTICS OF MEROPENEM - REPEAT IMAGING CXR IN MORNING. 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 NASAL CANAL IRRITATION - CONTINUED LUBRICATION OF L NASAL PASSAGE WILL REQUIRE A FEW MORE DAYS IN HOSPITAL FOR STABILIZATION AND WEANING OF OXYGEN Supervisory-Addendum Brief Verification & Attestation Participated in pt care: history, MDM, physical Personally performed: exam, history, MDM, supervision of care Care discussed with: Medical Student Procedures: n/a Results interpretation: Verified all documentation AGREE WITH STUDENT NOTE DOCUMENTED REPEAT INR TOMORROW MORNING CHEST 2 VIEW XRAY ORDERED FOR TOMORROW MORNING WILL LOOK INTO SWING BED FOR ADMISSION FOR STRENGTHENING AND WEANING SINCE SHE IS STILL NOT QUITE WELL I WOULD LIKE PRIOR TO DISCHARGE. WAS GOING TO CONSIDER RESTARTING MUCOMYST, BUT I WILL WAIT TO REASSESS HER TOMORROW. CLEMENTE CHANCE STUDENT Aug 21, 2020 07:54 AJITH PENN MD Aug 21, 2020 17:20
[2020-08-21 08:00] VITALS: BP 127/74
[2020-08-21] MEDS ORDERED: MEROPENEM 500 MG in WATER (STERILE) FOR INJECTION 10 ML IV SCH (08:00)
--- NOTE | 2020-08-21 08:02 | Physical Therapy Progress Note ---
Therapy Progress Note PT will require new orders when patient is medically able to participate with skilled therapy. RN will be notified. BRAIN LEROY PT Aug 21, 2020 08:02
[2020-08-21] MEDS: guaiFENesin (MUCINEX) 600 MG TAB PO SCH ×2 (08:17→20:35)
[2020-08-21] MEDS: amLODIPine 2.5MG (NORVASC) TAB PO SCH (08:17)
[2020-08-21] MEDS: TIMOLOL MALEATE 0.25% (TIMOPTIC) 5 ML DROPS OU SCH ×2 (08:18→20:36)
--- NOTE | 2020-08-21 08:35 | Diagnostic Imaging Report ---
INDICATION: Shortness of breath and infiltrate. Time of exam: 5:27 AM Correlation is made with prior chest 3 days earlier. Heart is slightly enlarged. There is central congestion. There appears to be some infiltrate in the right midlung field. Left lung is clear. There is no effusion or pneumothorax. IMPRESSION: Right mid lung pulmonary infiltrate and mild cardiomegaly. Dictated by: Dictated on workstation # [id number]
[2020-08-21 16:00] VITALS: BP 149/76
[2020-08-21] MEDS: warFARin 3 MG (COUMADIN) TAB PO SCH (16:31)
[2020-08-21] MEDS: predniSONE 10 MG TAB PO SCH (16:31)
[2020-08-21] MEDS: MEROPENEM 500 MG in WATER (STERILE) FOR INJECTION 10 ML IV SCH (16:31)
[2020-08-21 20:00] VITALS: BP 146/75
[2020-08-22 00:20] VITALS: BP 130/73
[2020-08-22] MEDS: MEROPENEM 500 MG in WATER (STERILE) FOR INJECTION 10 ML IV SCH ×3 (00:22→16:30)
[2020-08-22] MEDS: RT-ALBUTEROL/IPRATROPIUM 3 ML (DUONEB) VIAL INH SCH ×6 (02:00→21:12)
[2020-08-22 04:46] VITALS: BP 134/77
[2020-08-22 06:26] LABS: CHLORIDE 99 MMOL/L (98-107); SODIUM 128 MMOL/L (135-145)
[2020-08-22 06:27] LABS: CALCIUM 9.3 MG/DL (8.5-10.1)
[2020-08-22 06:28] LABS: GLUCOSE 132 MG/DL (70-105)
[2020-08-22 06:29] LABS: CARBON DIOXIDE 20 MMOL/L (21-32)
[2020-08-22 06:32] LABS: CREATININE SERUM 0.82 MG/DL (0.60-1.30); GFR ESTIMATED > 60
[2020-08-22 06:33] LABS: BUN/CREATININE RATIO 28
--- NOTE | 2020-08-22 06:49 | Pulmonary Progress Note ---
Subjective Time Seen by a Provider: 06:46 Subjective/Events-last exam No complications noted. Sepsis Event Evaluation Height, Weight, BMI Height: 5'7.00" Weight: 170lbs. 0.0oz. 77.566325ac; 28.32 BMI Method:Stated Exam Exam Vital Signs Date Time Temp Pulse Resp B/P (MAP) Pulse Ox O2 Delivery O2 Flow Rate FiO2 08/22/20 06:12 95 High Flow N/C 3.00 08/22/20 04:46 36.0 64 18 134/77 (96) 96 High Flow N/C 3.00 08/22/20 02:05 96 High Flow N/C 4.00 08/22/20 01:00 64 08/22/20 00:20 36.1 63 16 130/73 (92) 95 High Flow N/C 4.00 08/21/20 22:31 96 High Flow N/C 5.00 08/21/20 20:36 High Flow N/C 6.00 08/21/20 20:00 36.2 73 18 146/75 (98) 93 High Flow N/C 6.00 08/21/20 19:00 76 08/21/20 18:37 94 High Flow N/C 5.00 08/21/20 16:00 36.3 68 18 149/76 (100) 96 High Flow N/C 6.00 08/21/20 14:17 93 High Flow N/C 6.00 08/21/20 13:00 71 08/21/20 10:07 93 High Flow N/C 6.00 08/21/20 08:28 High Flow N/C 6.00 08/21/20 08:00 36.2 66 20 127/74 (91) 92 High Flow N/C 6.00 08/21/20 07:00 66 I & O 08/22/20 07:00 Intake Total 1485 ml Output Total 1450 ml Balance 35 ml Height & Weight Height: 5'7.00" Weight: 170lbs. 0.0oz. 77.841782ze; 28.32 BMI Method:Stated General Appearance: No Apparent Distress, WD/WN HEENT: PERRL/EOMI, Normal ENT Inspection Neck: Full Range of Motion, Supple Respiratory: Crackles, Decreased Breath Sounds, Wheezing Cardiovascular: Regular Rate, Rhythm, No Edema Capillary Refill: Less Than 3 Seconds Gastrointestinal: No distended Extremity: Non Tender Neurologic/Psychiatric: Alert, Oriented x3, Normal Mood/Affect, relief driller II-XII Norm as Tested Skin: Normal Color, Warm/Dry Results Lab Laboratory Tests 08/21/20 05:23 08/22/20 05:48 Assessment/Plan Assessment/Plan Acute Respiratory failure -3 liter NC currently -BiPAP PRN -Duoneb Q 4 -prednisone taper -Duoneb -Give Lasix 40mg IV x 1 Pneumonia - Merrem -Repeat PCT and BNP -Repeat Ayala cultures -- pending 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
[2020-08-22 07:00] LABS: INR 2.3 (0.8-1.4); PROTHROMBIN TIME PATIENT 25.7 SEC (12.2-14.7)
[2020-08-22] MEDS ORDERED: FUROSEMIDE 40 MG/4 ML INJ (LASIX) IVP ONE (07:00)
--- NOTE | 2020-08-22 07:41 | Progress Note ---
Subjective Subjective Date Seen by Provider: Aug 22, 2020 Time Seen by Provider: 07:30 Pt appears comfortable resting in bed. High flow O2 down to 3.00 and Pt is breathing easily. Still has productive cough, clear sputum. Lung sounds improving. Nasal irritation improving with regular gel application. Pt says she hasnt had a BM in a few days. No other complaints. Denies n/v/fever/chills/cp. Review of Systems General: Fatigue HEENT: No Head Aches, No Visual Changes Pulmonary: Dyspnea, Cough Cardiovascular: No: Chest Pain, Palpitations Gastrointestinal: No: Nausea, Abdominal Pain, Diarrhea Genitourinary: No Dysuria Neurological: No: Weakness, Confusion Objective Exam Vital Signs Vital Signs - First Documented 08/16/20 08/16/20 00:00 02:17 Temp 36.4 Pulse 69 Resp 18 B/P (MAP) 121/69 (86) Pulse Ox 95 O2 Delivery Vapotherm O2 Flow Rate 30.00 70.00 FiO2 70 Capillary Refill : Less Than 3 Seconds General Appearance: No Apparent Distress, WD/WN Eyes: Bilateral Eye Normal Inspection, Bilateral Eye PERRL, Bilateral Eye EOMI HEENT: PERRL/EOMI, Normal ENT Inspection Neck: Full Range of Motion, Supple Respiratory: Crackles, Decreased Breath Sounds, Wheezing Cardiovascular: Regular Rate, Rhythm, No Edema Gastrointestinal: Normal Bowel Sounds, Non Tender, Soft Rectal: Deferred Back: No CVA Tenderness Extremity: Non Tender Neurologic/Psychiatric: Alert, Oriented x3, Normal Mood/Affect, sumo wrestler II-XII Norm as Tested Skin: Normal Color, Warm/Dry Results Lab Laboratory Tests 08/21/20 15:29: Glucometer 116H 08/21/20 20:12: Glucometer 129H 08/22/20 05:48: Prothrombin Time 25.7H, INR Comment 2.3H, Sodium Level 128L, Potassium Level 5.0, Chloride Level 99, Carbon Dioxide Level 20L, Anion Gap 9, Blood Urea Nitrogen 23H, Creatinine 0.82, Estimat Glomerular Filtration Rate > 60, BUN/Creatinine Ratio 28, Glucose Level 132H, Calcium Level 9.3 Microbiology 08/16/20 Blood Culture - Final, Complete No growth 08/11/20 Urine Culture - Final, Complete Escherichia coli 08/11/20 Influenza Types A,B Antigen (HILARIA) - Final, Complete Assessment/Plan Assessment/Plan Assessment and Plan ACUTE RESPIRATORY DISTRESS RIGHT SIDED PNEUMONIA ACUTE URINARY TRACT INFECTION HX DVT WITH PULMONARY EMBOLI DEPRESSION CHRONIC HYPERTENSION NASAL CANAL IRRITATION CONSTIPATION ACUTE RESPIRATORY DISTRESS WITH RIGHT SIDED PNEUMONIA - -O-N- -L-C-I-R-K-N-E-R-M- --- -U-R-J-T-I-N-U-E- -W-I-T-H- -Z-I-L-N-I-N-G- -A-S- -A-B-L-E-.- - IV ANTIBIOTICS OF MEROPENEM - REPEAT IMAGING CXR IN MORNING. 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 NASAL CANAL IRRITATION - CONTINUED LUBRICATION OF L NASAL PASSAGE WILL REQUIRE A FEW MORE DAYS IN HOSPITAL FOR STABILIZATION AND WEANING OF OXYGEN CONSTIPATION - MIRALAX PRN Supervisory-Addendum Brief Verification & Attestation Participated in pt care: history, MDM, physical Personally performed: exam, history, MDM, supervision of care Care discussed with: Medical Student Procedures: n/a Results interpretation: Verified all documentation AGREE WITH STUDENT NOTE - DOCUMENTED PT REPORTS THAT SHE IS FEELING BETTER, SHE HAS NOT HAD A BOWEL MOVEMENT IN A FEW DAYS. SHE IS ALSO INDICATING THAT SHE IS NOT RECEIVING THERAPY AND ONLY WALKING AROUND IN HER ROOM,- THERAPY NOTE INDICATES THAT THEY NEED NEW ORDERS TO CONTINUE WITH THERAPY - NEW ORDERS WRITTEN. WILL ALSO LOOK INTO SWING BED SINCE SHE IS GOING TO STAY LONGER THAN EXPECTED DUE TO SLOW RECOVERY. REPEAT IMAGING OF CHEST TOMORROW, REPEAT CBC, INR, BMP TOMORROW. MILD HYPONATREMIA - START CLEMENTE SIMEON STUDENT Aug 22, 2020 07:41 AJTIH PENN MD Aug 22, 2020 09:08
--- NOTE | 2020-08-22 07:46 | Physical Therapy Progress Note ---
Therapy Progress Note PT requires new orders to resume treatment. RN will be notified. BRAIN LEROY PT Aug 22, 2020 07:46
[2020-08-22 08:00] VITALS: BP 124/74
[2020-08-22] MEDS: amLODIPine 2.5MG (NORVASC) TAB PO SCH (08:43)
[2020-08-22] MEDS: guaiFENesin (MUCINEX) 600 MG TAB PO SCH ×2 (08:43→20:47)
[2020-08-22] MEDS: TIMOLOL MALEATE 0.25% (TIMOPTIC) 5 ML DROPS OU SCH ×2 (08:43→20:47)
[2020-08-22] MEDS ORDERED: polyethylene glycoL POWDER 17 GM (MIRALAX) PACK PO ONE (09:00)
--- NOTE | 2020-08-22 09:30 | Diagnostic Imaging Report ---
EXAMINATION: PA and lateral chest at 851 hours. INDICATION: Pneumonia. FINDINGS: The heart size is within normal limits and the heart has decreased in size since the prior exam of 08/21/2020. The pulmonary congestion seen on the prior exam has also essentially resolved. There is still some residual pneumonia/atelectasis and fluid in both lung bases. The mediastinum is not widened. The osseous structures are intact. IMPRESSION: 1. The appearance of the chest has improved as the heart has decreased in size and the pulmonary congestion noted on the prior exam has essentially resolved. 2. There is still involvement of both lung bases by atelectasis/infiltrate and fluid. Followup study would be recommended for continued evaluation. Dictated by: Dictated on workstation # [id number]
[2020-08-22 12:00] VITALS: BP 131/82
--- NOTE | 2020-08-22 15:18 | Physical Therapy Evaluation ---
PT Evaluation-General Medical Diagnosis Admission Date Aug 11, 2020 at 19:16 Medical Diagnosis: pneumonia, UTI Onset Date: Aug 11, 2020 Therapy Diagnosis Therapy Diagnosis: debility/weakness Height/Weight Height (Feet): 5 Height (Inches): 7.00 Weight (Pounds): 170 Weight (Ounces): 0.0 Precautions Precautions/Isolations: Fall Prevention, Standard Precautions Referral Physician: Linda Reason for Referral: Evaluation/Treatment Medical History Pertinent Medical History: Arthritis, Diverticulitis, Fractures, HTN Current History patient had transferred to ICU due to medical condition then transferred back to 4th floor. Reviewed History: Yes Social History Home: Single Level Current Living Status: Spouse Entry Into Home: Level Entry Prior Prior Level of Function SCALE: Activities may be completed with or without assistive devices. 8-Alrxuaellu-hwwoovu completes the activity by him/herself with no assistance from a helper. 5-Set-up or Clean-up Assistance-helper sets up or cleans up; patient completes activity. [place] assists only prior to or following the activity. 4-Supervision or Touching Assistance-helper provides verbal cues and/or touching/steadying and/or contact guard assistance as patient completes activity. Assistance may be provided throughout the activity or intermittently. 3-Partial/Moderate Assistance-helper does LESS THAN HALF the effort. [place] lifts, holds or supports trunk or limbs, but provides less than half the effort. 2-Substantial/Maximal Assistance-helper does MORE THAN HALF the effort. [place] lifts or holds trunk or limbs and provides more than half the effort. 0-Vfkuklvwx-tvquvk does ALL the effort. Patient does none of the effort to complete the activity. Or, the assistance of 2 or more helpers is required for the patient to complete the activity. If activity was not attempted, code reason: 7-Patient Refused. 9-Not Applicable-not attempted and the patient did not perform the activity before the current illness, exacerbation or injury. 10-Not Attempted due to Environmental Limitations-(lack of equipment, weather restraints, etc.). 88-Not Attempted due to Medical Conditions or Safety Concerns. Bed Mobility: 6 Transfers (B,C,W/C): 6 Gait: 6 Indoor Mobility (Ambulation): Independent Prior Devices Use: None Prior Device Use: Occassionally uses walker/cane PT Evaluation-Current Subjective Patient very agreeable to participate with therapy. Pain Numeric Pain Scale: 0-No Pain Location: No Pain Reported Objective Patient Orientation: Normal For Age Attachments: Oxygen (2L) ROM/Strength ROM Lower Extremities bilateral LE WFL Strength Lower Extremities 4-/5 grossly bilateral LE Integumentary/Posture Integumentary refer to nursing notes Bowel Incontinence: No Bladder Incontinence: No Posture kyphotic Neuromuscular (Tone, Coordination, Reflexes) grossly intact Sensory Vision: Functional Hearing: Impaired Hand Dominance: Right Sensation Right Lower Extremit: Intact Sensation Left Lower Extremity: Intact Transfers Roll Left to Right (QC): 4 Sit to Lying (QC): 4 Lying to Sitting/Side of Bed(Q: 4 Sit to Stand (QC): 4 Chair/Ath-eu-Odzzm Xfer(QC): 4 Toilet Transfer (QC): 4 Gait Does the Patient Walk?: Yes Mode of Locomotion: Walk Anticipated Mode of Locomotion: Walk Walk 10 feet (QC): 4 Walk 50 ft with 2 Turns(QC): 4 Walk 150 ft (QC): 4 Distance: 150' Gait Assistive Device: FWW Comments/Gait Description improved stability and gait sequence with FWW use Balance Sitting Static: Normal Sitting Dynamic: Normal Standing Static: Good Standing Dynamic: Good Assessment/Needs 85 y.o. female,will benefit from skilled PT to address functional strength and mobility to ensure safe return to home at maximum LOF. Rehab Potential: Fair PT Rn Ambulatory Goals [facility] Goals PT Rn Ambulatory Goals Time Frame: September 02, 2020 Roll Left & Right (QC): 6 Sit to Lying (QC): 6 Lying-Sitting on Side/Bed(QC): 6 Sit to Stand (QC): 6 Chair/Glf-pd-Sjkfw Xfer(QC): 6 Walk 10 feet (QC): 6 Walk 50ft with 2 Turns (QC): 6 PT Plan Treatment/Plan Treatment Plan: Continue Plan of Care Treatment Plan: Bed Mobility, Education, Functional Activity Chandu, Functional Strength, Gait, Safety, Therapeutic Exercise, Transfers Treatment Duration: September 02, 2020 Frequency: 6 times per week Estimated Hrs Per Day: .25 hour per day Patient and/or Family Agrees t: Yes Time/GCodes Time In: 1455 Time Out: 1510 Total Billed Treatment Time: 15 Total Billed Treatment 1 visit EVMod 15 min BRAIN LEROY PT Aug 22, 2020 15:18
[2020-08-22 16:43] VITALS: BP 130/69
[2020-08-22] MEDS: warFARin 3 MG (COUMADIN) TAB PO SCH (17:20)
[2020-08-23] MEDS: MEROPENEM 500 MG in WATER (STERILE) FOR INJECTION 10 ML IV SCH ×2 (00:20→08:02)
[2020-08-23 00:21] VITALS: BP 114/61
[2020-08-23] MEDS: RT-ALBUTEROL/IPRATROPIUM 3 ML (DUONEB) VIAL INH SCH ×2 (02:39→06:46)
--- NOTE | 2020-08-23 06:01 | Pulmonary Progress Note ---
Subjective Time Seen by a Provider: 05:59 Subjective/Events-last exam No complications noted. Sepsis Event Evaluation Height, Weight, BMI Height: 5'7.00" Weight: 170lbs. 0.0oz. 77.404453nr; 28.32 BMI Method:Stated Exam Exam Vital Signs Date Time Temp Pulse Resp B/P (MAP) Pulse Ox O2 Delivery O2 Flow Rate FiO2 08/23/20 00:21 36.2 61 18 114/61 (78) 95 High Flow N/C 2.00 08/22/20 21:12 93 High Flow N/C 2.00 08/22/20 20:47 94 High Flow N/C 2.00 08/22/20 18:21 96 High Flow N/C 2.00 08/22/20 16:43 36.0 74 19 130/69 (89) 94 High Flow N/C 2.00 08/22/20 14:43 96 High Flow N/C 2.00 08/22/20 12:00 35.9 67 20 131/82 (98) 96 High Flow N/C 1.00 08/22/20 10:20 96 High Flow N/C 2.00 08/22/20 08:00 93 High Flow N/C 2.00 08/22/20 08:00 35.7 68 20 124/74 (91) 93 High Flow N/C 2.00 08/22/20 06:47 71 08/22/20 06:12 95 High Flow N/C 3.00 I & O 08/23/20 07:00 Intake Total 1560 ml Output Total 1000 ml Balance 560 ml Height & Weight Height: 5'7.00" Weight: 170lbs. 0.0oz. 77.816178bh; 28.32 BMI Method:Stated General Appearance: No Apparent Distress, WD/WN HEENT: PERRL/EOMI, Normal ENT Inspection Neck: Full Range of Motion, Supple Respiratory: Crackles, Decreased Breath Sounds, Wheezing Cardiovascular: Regular Rate, Rhythm, No Edema Capillary Refill: Less Than 3 Seconds Gastrointestinal: No distended Extremity: Non Tender Neurologic/Psychiatric: Alert, Oriented x3, Normal Mood/Affect, language assistant II-XII Norm as Tested Skin: Normal Color, Warm/Dry Results Lab Laboratory Tests 08/22/20 05:48 Assessment/Plan Assessment/Plan Acute Respiratory failure - improving -3 liter NC currently -BiPAP PRN -Duoneb Q 4 -prednisone taper -Duoneb Pneumonia - Merrem -Repeat PCT and BNP -Repeat Ayala cultures -- pending 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
[2020-08-23 06:59] LABS: HEMOGLOBIN 11.4 g/dL (11.5-16.0); MEAN PLATELET VOLUME 9.1 fL (9.0-12.2); WHITE BLOOD COUNT 15.7 10^3/uL (4.3-11.0)
[2020-08-23 07:10] LABS: CHLORIDE 98 MMOL/L (98-107); INR 2.2 (0.8-1.4); POTASSIUM 4.5 MMOL/L (3.6-5.0); PROTHROMBIN TIME PATIENT 24.7 SEC (12.2-14.7); SODIUM 130 MMOL/L (135-145)
[2020-08-23 07:11] LABS: CALCIUM 9.2 MG/DL (8.5-10.1); GLUCOSE 91 MG/DL (70-105)
[2020-08-23 07:13] LABS: CARBON DIOXIDE 23 MMOL/L (21-32)
[2020-08-23 07:15] LABS: CREATININE SERUM 0.83 MG/DL (0.60-1.30); GFR ESTIMATED > 60
[2020-08-23 07:16] LABS: BUN/CREATININE RATIO 28
--- NOTE | 2020-08-23 07:52 | Progress Note ---
Subjective Subjective Pt appears comfortable resting in bed. High flow O2 down to 2.00 today and Pt is breathing easily. Still has productive cough, clear sputum. Lung sounds improving. Nasal irritation improving with regular gel application. Pt says she hasnt had a BM despite addition of miralax yesterday. No other complaints. Denies n/v/fever/chills/cp. Review of Systems General: Fatigue HEENT: No Head Aches, No Visual Changes Pulmonary: Dyspnea, Cough Cardiovascular: No: Chest Pain, Palpitations Gastrointestinal: Constipation; No: Nausea, Abdominal Pain, Diarrhea Genitourinary: No Dysuria Neurological: No: Weakness, Confusion Objective Exam Vital Signs Vital Signs - First Documented 08/17/20 08/17/20 08/17/20 00:00 02:25 06:30 Temp 35.8 Pulse 66 Resp 27 B/P (MAP) 122/68 (86) Pulse Ox 97 O2 Delivery NIV Bilevel O2 Flow Rate 50.00 FiO2 70 Capillary Refill : Less Than 3 Seconds General Appearance: No Apparent Distress, WD/WN Eyes: Bilateral Eye Normal Inspection, Bilateral Eye PERRL, Bilateral Eye EOMI HEENT: PERRL/EOMI, Normal ENT Inspection Neck: Full Range of Motion, Supple Respiratory: Crackles, Decreased Breath Sounds, Wheezing Cardiovascular: Regular Rate, Rhythm, No Edema Gastrointestinal: Normal Bowel Sounds, Non Tender, Soft Rectal: Deferred Back: No CVA Tenderness Extremity: Non Tender Neurologic/Psychiatric: Alert, Oriented x3, Normal Mood/Affect, biomedical analytical scientist II-XII Norm as Tested Skin: Normal Color, Warm/Dry Results Lab Laboratory Tests 08/23/20 06:51: White Blood Count 15.7H, Red Blood Count 3.82, Hemoglobin 11.4L, Hematocrit 35, Mean Corpuscular Volume 91, Mean Corpuscular Hemoglobin 30, Mean Corpuscular Hemoglobin Concent 33, Red Cell Distribution Width 13.4, Platelet Count 388, Mean Platelet Volume 9.1, Prothrombin Time 24.7H, INR Comment 2.2H, Sodium Level 130L, Potassium Level 4.5, Chloride Level 98, Carbon Dioxide Level 23, Anion Gap 9, Blood Urea Nitrogen 23H, Creatinine 0.83, Estimat Glomerular Filtration Rate > 60, BUN/Creatinine Ratio 28, Glucose Level 91, Calcium Level 9.2 Microbiology 08/16/20 Blood Culture - Final, Complete No growth 08/11/20 Urine Culture - Final, Complete Escherichia coli 08/11/20 Influenza Types A,B Antigen (HILARIA) - Final, Complete Assessment/Plan Assessment/Plan Assessment and Plan ACUTE RESPIRATORY DISTRESS RIGHT SIDED PNEUMONIA ACUTE URINARY TRACT INFECTION HX DVT WITH PULMONARY EMBOLI DEPRESSION CHRONIC HYPERTENSION NASAL CANAL IRRITATION CONSTIPATION ACUTE RESPIRATORY DISTRESS WITH RIGHT SIDED PNEUMONIA - ON VAPOTHERM - CONTINUE WITH WEANING ABLE. - IV ANTIBIOTICS OF MEROPENEM - REPEAT IMAGING CXR IN MORNING. 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 NASAL CANAL IRRITATION - CONTINUED LUBRICATION OF L NASAL PASSAGE WILL REQUIRE A FEW MORE DAYS IN HOSPITAL FOR STABILIZATION AND WEANING OF OXYGEN CONSTIPATION - MIRALAX PRN CLEMENTE CHANCE MED STUDENT Aug 23, 2020 07:52
[2020-08-23 07:59] VITALS: BP 104/64
[2020-08-23] MEDS: guaiFENesin (MUCINEX) 600 MG TAB PO SCH (08:04)
[2020-08-23] MEDS: predniSONE 10 MG TAB PO SCH (08:04)
[2020-08-23] MEDS: amLODIPine 2.5MG (NORVASC) TAB PO SCH (08:04)
[2020-08-23] MEDS: TIMOLOL MALEATE 0.25% (TIMOPTIC) 5 ML DROPS OU SCH (08:05)
--- NOTE | 2020-08-23 08:52 | Diagnostic Imaging Report ---
INDICATION: Followup pneumonia. COMPARISON: 08/22/2020. FINDINGS: The bibasilar pulmonary opacities, greater left, have significantly improved. There is a vague right upper lobe pulmonary density which is somewhat more conspicuous, likely an additional focus of pneumonia. IMPRESSION: 1. Mixed changes with improvements in basilar infiltrates but better visualization of likely infiltrate in the patient's right upper lobe. 2. No other significant finding. Dictated by: Dictated on workstation # [id number]
--- NOTE | 2020-08-23 08:59 | Discharge Summary ---
Diagnosis/Chief Complaint Date of Admission Aug 11, 2020 at 19:16 Date of Discharge Discharge Date: Aug 23, 2020 Discharge Time: 0900 Discharge Summary Discharge Physical Examination Allergies: Coded Allergies: adhesive tape (Verified Adverse Reaction, Intermediate, 02/01/17) blisters Vitals & I&Os Vital Signs Date Time Temp Pulse Resp B/P (MAP) Pulse Ox O2 Delivery O2 Flow Rate FiO2 08/23/20 07:59 36.3 72 17 104/64 (77) 93 High Flow N/C 2.00 08/18/20 14:18 40 Hospital Course Pending Labs Laboratory Tests 08/23/20 06:51: White Blood Count 15.7, Red Blood Count 3.82, Hemoglobin 11.4, Hematocrit 35, Mean Corpuscular Volume 91, Mean Corpuscular Hemoglobin 30, Mean Corpuscular Hemoglobin Concent 33, Red Cell Distribution Width 13.4, Platelet Count 388, Mean Platelet Volume 9.1, Prothrombin Time 24.7, INR Comment 2.2, Sodium Level 130, Potassium Level 4.5, Chloride Level 98, Carbon Dioxide Level 23, Anion Gap 9, Blood Urea Nitrogen 23, Creatinine 0.83, Estimat Glomerular Filtration Rate > 60, BUN/Creatinine Ratio 28, Glucose Level 91, Calcium Level 9.2 Discharge Instructions to patient/family Please see electronic discharge instructions given to patient. Discharge Medications Reviewed and agree with Discharge Medication list on patient's Discharge Instruction sheet AJITH PENN MD Aug 23, 2020 08:59
[2020-08-23] MEDS ORDERED: polyethylene glycoL POWDER 17 GM (MIRALAX) PACK PO SCH (21:00)
== END 2020-08-23 09:10 | disposition swing bed (61) | DRG 689 ==
LOC: EDUNIT# 17:49 → ER 17:51 → CSD 19:16 → 4TH 08-13 10:59 → ICU 08-16 16:31 → CSD 08-18 15:54 → 4TH 08-19 12:09
PROVIDERS: ADMIT Family Medicine; ATTEND Family Medicine
PROC: 5A09357 Assistance with Respiratory Ventilation, Less than 24 Consecutive Hours, Continuous Positive Airway Pressure (ICD-10-PCS; principal; 2020-08-16)
DX: N39.0 Urinary tract infection, site not specified (principal); J18.9 Pneumonia, unspecified organism; E87.1 Hypo-osmolality and hyponatremia; R06.03 Acute respiratory distress; Z20.822 Contact with and (suspected) exposure to COVID-19; Z86.718 Personal history of other venous thrombosis and embolism; Z79.01 Long term (current) use of anticoagulants; Z86.711 Personal history of pulmonary embolism; F32.9 Major depressive disorder, single episode, unspecified; I10 Essential (primary) hypertension; B96.20 Unspecified Escherichia coli [E. coli] as the cause of diseases classified elsewhere; E78.00 Pure hypercholesterolemia, unspecified; K57.90 Diverticulosis of intestine, part unspecified, without perforation or abscess without bleeding; J34.89 Other specified disorders of nose and nasal sinuses; K59.00 Constipation, unspecified
CPT/HCPCS: 36415; 36600; 71045; 71046; 80048; 80053; 81000; 82805; 82962; 83605; 83735; 83880; 84100; 84145; 85007; 85025; 85027; 85379; 85610; 86141; 87040; 87077; 87088; 87186; 87449; 87635; 87804; 87899; 94640; 94660; 94664; 94760; 96361; 96374; 96375

== ENCOUNTER 2020-08-22 17:55 | Inpatient (IN) | payer MEDICARE ==
[~2020-08-22] VITALS: Ht 167 cm; Wt 83.2 kg
[~2020-08-22 17:55] MED LIST changes: +BETA1TAB15 PO; +BRIM5DRO OU; +LATA7.5D OU; +NF-DOR2% OU; +WARF3TAB56 PO
[2020-08-23] MEDS ORDERED: MEROPENEM 500 MG in WATER (STERILE) FOR INJECTION 10 ML IV SCH (09:45)
[2020-08-23] MEDS ORDERED: CATHETER FLUSH 10 ML SYR IV PRN (09:45)
[2020-08-23] MEDS ORDERED: SOD CHL GEL 0.5 OZ (AYR SALINE NASAL GEL) TUBE TOP PRN (09:45)
[2020-08-23] MEDS ORDERED: polyethylene glycoL POWDER 17 GM (MIRALAX) PACK PO SCH (09:45)
[2020-08-23] MEDS ORDERED: predniSONE 10 MG TAB PO SCH (09:45)
[2020-08-23] MEDS ORDERED: ONDANSETRON 4 MG/2 ML (SDV) Z0FRAN IV PRN (09:45)
[2020-08-23] MEDS ORDERED: SENNA W/DOCUSATE (SENOKOT S) TABLET PO ONE (09:45)
[2020-08-23] MEDS ORDERED: BISACODYL 10 MG SUPP (DULCOLAX) PR ONE (09:45)
[2020-08-23] MEDS ORDERED: RT-ALBUTEROL/IPRATROPIUM 3 ML (DUONEB) VIAL ONE (10:15)
[2020-08-23] MEDS: RT-ALBUTEROL/IPRATROPIUM 3 ML (DUONEB) VIAL INH SCH ×4 (10:26→21:31)
[2020-08-23] MEDS: ACETAMINOPHEN 325 MG TABLET PO PRN (11:35)
--- NOTE | 2020-08-23 11:36 | Physical Therapy Evaluation ---
PT Evaluation-General Medical Diagnosis Admission Date Aug 23, 2020 at 09:37 Medical Diagnosis: pneumonia, UTI Onset Date: Aug 11, 2020 Therapy Diagnosis Therapy Diagnosis: debility/weakness Height/Weight Height (Feet): 5 Height (Inches): 7.00 Weight (Pounds): 170 Weight (Ounces): 0.0 Precautions Precautions/Isolations: Fall Prevention, Standard Precautions Referral Physician: Linda Reason for Referral: Evaluation/Treatment Medical History Pertinent Medical History: Arthritis, Diverticulitis, Fractures, HTN Reviewed History: Yes Social History Home: Single Level Current Living Status: Spouse Entry Into Home: Level Entry Prior Prior Level of Function SCALE: Activities may be completed with or without assistive devices. 7-Ueguwpebst-ovdnjfm completes the activity by him/herself with no assistance from a helper. 5-Set-up or Clean-up Assistance-helper sets up or cleans up; patient completes activity. [place] assists only prior to or following the activity. 4-Supervision or Touching Assistance-helper provides verbal cues and/or touching/steadying and/or contact guard assistance as patient completes activity. Assistance may be provided throughout the activity or intermittently. 3-Partial/Moderate Assistance-helper does LESS THAN HALF the effort. [place] lifts, holds or supports trunk or limbs, but provides less than half the effort. 2-Substantial/Maximal Assistance-helper does MORE THAN HALF the effort. [place] lifts or holds trunk or limbs and provides more than half the effort. 8-Lcavbxani-zfrahw does ALL the effort. Patient does none of the effort to complete the activity. Or, the assistance of 2 or more helpers is required for the patient to complete the activity. If activity was not attempted, code reason: 7-Patient Refused. 9-Not Applicable-not attempted and the patient did not perform the activity before the current illness, exacerbation or injury. 10-Not Attempted due to Environmental Limitations-(lack of equipment, weather restraints, etc.). 88-Not Attempted due to Medical Conditions or Safety Concerns. Bed Mobility: 6 Transfers (B,C,W/C): 6 Gait: 6 Indoor Mobility (Ambulation): Independent Prior Device Use: occassionally uses walker/cane PT Evaluation-Current Subjective Patient reports no pain, is supine in bed pre tx. Patient consented to therapy. Pt/Family Goals Return home with PLOF Objective Patient Orientation: Person, Place, Time, Normal For Age Attachments: Oxygen ROM/Strength ROM Lower Extremities WFL Strength Lower Extremities R (hip flexion 4-/5, knee extension/flexion 4/5, DF 4+/5) L (hip flexion 4-/5, knee extension/flexion 4/5, DF 4+/5) Integumentary/Posture Integumentary see nursing report Bowel Incontinence: No Bladder Incontinence: No Posture kyphotic Sensory Vision: Functional Hearing: Functional Sensation Right Lower Extremit: Intact Sensation Left Lower Extremity: Intact Transfers Roll Left & Right (QC): 6 Sit to Lying (QC): 6 Lying to Sitting/Side of Bed(Q: 6 Sit to Stand (QC): 4 Chair/Qoa-wq-Cbzux Xfer(QC): 4 Toilet Transfer (QC): 4 Car Transfer (QC): 9 CGA Gait Does the Patient Walk?: Yes Mode of Locomotion: Walk Anticipated Mode of Locomotion: Walk Walk 10 feet (QC): 4 Walk 50 ft with 2 Turns(QC): 4 Walk 150 ft (QC): 4 Walking 10ft/uneven surface-QC: 88 Distance: 150' Gait Assistive Device: FWW Comments/Gait Description Gait is slow but steady. Patient maintains balance well, adequate stride length. Wheelchair Training Wheel 50 ft with 2 turns (QC): 9 Wheel 150 ft (QC): 9 Stairs 1 Step (curb) (QC): 88 4 Steps (QC): 88 12 Steps (QC): 88 Balance Sitting Static: Good Sitting Dynamic: Good Standing Static: Good Standing Dynamic: Good Picking up an Object (QC): 88 Treatment LE strengthenin reps ankle pumps, 20 reps LAQ Assessment/Needs Patient will benefit from overall strengthening to improve functional endurance for safe return home. Rehab Potential: Good PT Helmet Hat Puncher Goals Helmet Hat Puncher Goals PT Mcc Goals Time Frame: September 06, 2020 Roll Left & Right (QC): 6 Sit to Lying (QC): 6 Lying-Sitting on Side/Bed(QC): 6 Sit to Stand (QC): 6 Chair/Ruj-hj-Cdykd Xfer(QC): 5 Toilet Transfer (QC): 5 Car Transfer (QC): 5 Does the Patient Walk: Yes Walk 10 feet (QC): 5 Walk 50ft with 2 Turns (QC): 5 Walk 150 ft (QC): 5 Walking 10ft on Uneven Surface: 5 1 Step (curb) (QC): 4 (SBA) 4 Steps (QC): 4 (SBA) 12 Steps (QC): 9 Picking up an Object (QC): 4 (SBA) Wheel 50 feet with 2 turns (QC: 9 Wheel 150 feet: 9 PT Plan Problem List Problem List: Activity Tolerance, Functional Strength, Safety, Balance, Gait, Transfer, Bed Mobility, ROM Treatment/Plan Treatment Plan: Continue Plan of Care Treatment Plan: Bed Mobility, Education, Functional Activity Chandu, Functional Strength, Gait, Safety, Therapeutic Exercise, Transfers Treatment Duration: September 06, 2020 Frequency: 6 times per week Estimated Hrs Per Day: .25 hour per day Patient and/or Family Agrees t: Yes Safety Risks/Education Patient Education: Gait Training, Transfer Techniques, Correct Positioning, Safety Issues Teaching Recipient: Patient Teaching Methods: Demonstration, Discussion Response to Teaching: Verbalize Understanding, Return Demonstration Discharge Recommendations Plan Plan to incorporate LE strengthening, functional endurance, and gait training to improve mobility to promote safety with return home to prior level of independence with spouse. Therapy Discharge Recommendati: Home & Family, Post Acute PT Time/GCodes Time In: 1040 Time Out: 1112 Total Billed Treatment Time: 32 Total Billed Treatment 1 visit: KOTAM: 10' FA: 22' TARUN NASCIMENTO PT Aug 23, 2020 11:36
--- NOTE | 2020-08-23 15:09 | Occupational Therapy Eval ---
OT Evaluation-General/PLF Medical Diagnosis Admission Date Aug 23, 2020 at 09:37 Medical Diagnosis: pneumonia, UTI Onset Date: Aug 11, 2020 Therapy Diagnosis Therapy Diagnosis: weakness, decreased ADL Status Height/Weight Height (Feet): 5 Height (Inches): 7.00 Weight (Pounds): 170 Weight (Ounces): 0.0 Precautions Precautions/Isolations: Fall Prevention, Standard Precautions Referral Physician: Linda Referral Reason: Evaluation/Treatment Medical History Pertinent Medical History: Arthritis, Diverticulitis, Fractures, HTN Current History 08/11/20 ED with fever, vomiting, cough. 08/23 transfer to [facility] Social History Home: Single Level Current Living Status: Spouse Entry Into Home: Level Entry ADL-Prior Level of Function SCALE: Activities may be completed with or without assistive devices. 4-Wqdsjuhepp-twijcve completes the activity by him/herself with no assistance from a helper. 5-Set-up or Clean-up Assistance-helper sets up or cleans up; patient completes activity. [place] assists only prior to or following the activity. 4-Supervision or Touching Assistance-helper provides verbal cues and/or touching/steadying and/or contact guard assistance as patient completes ac tivity. Assistance may be provided throughout the activity or intermittently. 3-Partial/Moderate Assistance-helper does LESS THAN HALF the effort. [place] lifts, holds or supports trunk or limbs, but provides less than half the effort. 2-Substantial/Maximal Assistance-helper does MORE THAN HALF the effort. [place] lifts or holds trunk or limbs and provides more than half the effort. 5-Nnbxqkkjp-rptczv does ALL the effort. Patient does none of the effort to complete the activity. Or, the assistance of 2 or more helpers is required for the patient to complete the activity. If activity was not attempted, code reason: 7-Patient Refused. 9-Not Applicable-not attempted and the patient did not perform the activity before the current illness, exacerbation or injury. 10-Not Attempted due to Environmental Limitations-(lack of equipment, weather restraints, etc.). 88-Not Attempted due to Medical Conditions or Safety Concerns. ADL PLOF Comments Pt reports IND with ADLs at PLOF including bathing, dressing, toileting. Pt's completes IADLs. IND with functional mobility using cane/walker occasionally. Self Care: Independent Functional Cognition: Independent DME/Equipment: Bath Chair, Bedside Commode (over toilet), Grab Bars, Shower DME/Equipment Comments walker OT Current Status Subjective Pt seated in recliner, agreeable to OT evaluation and tx. Mental Status/Objective Patient Orientation: Person, Place, Time, Situation Attachments: Oxygen Current Glasses/Contacts: Yes Hearing Aids: No Dentures/Partials: Yes Hand Dominance: Right Upper Extremity ROM WFL Upper Extremity Coordination WFL Upper Extremity Sensation WFL Upper Extremity Strength grossly 4/5 BUEs ADL-Treatment Eating (QC): 5 (Per pt report, set up assistance with contianers.) Oral Hygiene (QC): 5 (Based on clincial judgement and discussion with pt, set up assist required ) Shower/Bathe Self (QC): 4 (CGA in stand at FWW, pt able to wash/dry all parts) Upper Body Dressing (QC): 3 (Min A with hospital gown, assist to tie in back) Lower Body Dressing (QC): 4 (CGA in stand, pt able to doff/don brief) On/Off Footwear (QC): 4 (SBA, pt able to doff/don bilateral gripper socks.) Toileting Hygiene (QC): 4 (CGA, pt able to perform hygiene and clothing management.) Other Treatments Pt seated in recliner, OT educated pt on purpose and benefit of OT, she verbalized understanding. Pt provided information about PLOF and home set up, and participated in UE Screen. Pt agreeable to sponge bath on this date, compl eting sponge bath with CGA, and dressing as outlined above. Pt took rest breaks as needed. Post tx, pt seated in recliner, call light in reach and all needs met. Education OT Patient Education: Correct positioning, Energy conservation, Modified ADL techniques, Progress toward Goal/Update tx plan, Purpose of tx/functional activities Teaching Recipient: Patient Teaching Methods: Discussion Response to Teaching: Verbalize Understanding OT Apparel Machinery Instructor Goals Snf Goals Time Frame: Sep 01, 2020 Eating (QC): 6 Oral Hygiene (QC): 6 Toileting Hygiene (QC): 6 Shower/Bathe Self (QC): 6 Upper Body Dressing (QC): 6 Lower Body Dressing (QC): 6 On/Off Footwear (QC): 6 Additional Goals: 1-Demonstrate ADL Tasks, 2-Verbalize Understanding, 3- ImproveStrength/Chandu 1=Demonstrate adherence to instructed precautions during ADL tasks. 2=Patient will verbalize/demonstrate understanding of assistive devices/modifications for ADL. 3=Patient will improve strength/tolerance for activity to enable patient to perform ADL's. OT Education/Plan Problem List/Assessment Assessment: Decreased Activ Tolerance, Decreased UE Strength, Impaired Funct Balance, Impaired I ADL's, Impaired Self-Care Skills Discharge Recommendations Plan/Recommendations: Continue POC Treatment Plan/Plan of Care Patient would benefit from OT for education, treatment and training to promote independence in ADL's, mobility, safety and/or upper extremity function for ADL's. Plan of Care: ADL Retraining, Functional Mobility, UE Funct Exercise/Act Treatment Duration: Sep 01, 2020 Frequency: 5 times per week Estimated Hrs Per Day: .25 hour per day Rehab Potential: Good Time/GCodes Start Time: 14:13 Stop Time: 14:38 Total Time Billed (hr/min): 25 Billed Treatment Time 1, EVM (10'), ADL (15') ZANDER RODRIGUEZ OT Aug 23, 2020 15:09
[2020-08-23 17:42] VITALS: BP 125/76
[2020-08-23] MEDS: MEROPENEM 500 MG in WATER (STERILE) FOR INJECTION 10 ML IV SCH ×2 (17:57→23:09)
[2020-08-23] MEDS: warFARin 3 MG (COUMADIN) TAB PO SCH (17:57)
[2020-08-23] MEDS: guaiFENesin (MUCINEX) 600 MG TAB PO SCH (20:41)
[2020-08-23] MEDS: TIMOLOL MALEATE 0.25% (TIMOPTIC) 5 ML DROPS OU SCH (20:41)
[2020-08-24 00:16] VITALS: BP 137/68
[2020-08-24] MEDS: RT-ALBUTEROL/IPRATROPIUM 3 ML (DUONEB) VIAL INH SCH ×6 (02:19→22:30)
[2020-08-24 05:53] LABS: HEMOGLOBIN 11.5 g/dL (11.5-16.0); MEAN PLATELET VOLUME 9.1 fL (9.0-12.2)
[2020-08-24 06:08] LABS: INR 1.9 (0.8-1.4); PROTHROMBIN TIME PATIENT 22.2 SEC (12.2-14.7)
[2020-08-24 06:11] LABS: ALBUMIN 3.2 GM/DL (3.2-4.5); CHLORIDE 96 MMOL/L (98-107); POTASSIUM 4.5 MMOL/L (3.6-5.0); SODIUM 127 MMOL/L (135-145)
[2020-08-24] MEDS: predniSONE 10 MG TAB PO SCH (06:11)
[2020-08-24 06:12] LABS: CALCIUM 9.3 MG/DL (8.5-10.1)
[2020-08-24 06:13] LABS: GLUCOSE 102 MG/DL (70-105); TOTAL PROTEIN 5.9 GM/DL (6.4-8.2)
[2020-08-24 06:14] LABS: CARBON DIOXIDE 22 MMOL/L (21-32)
[2020-08-24 06:15] LABS: BILIRUBIN,TOTAL 0.7 MG/DL (0.1-1.0)
[2020-08-24 06:17] LABS: ALKALINE PHOSPHATASE 68 U/L (40-136); CREATININE SERUM 0.78 MG/DL (0.60-1.30); GFR ESTIMATED > 60
[2020-08-24 06:18] LABS: BUN/CREATININE RATIO 23
[2020-08-24 06:20] LABS: ALANINE AMINOTRANSFERASE 37 U/L (0-55)
[2020-08-24 06:51] VITALS: BP 132/72
--- NOTE | 2020-08-24 07:55 | Progress Note ---
Subjective Subjective Date Seen by Provider: Aug 24, 2020 Time Seen by Provider: 07:30 Pt appears comfortable sitting up in bed with no visible respiratory distress. Still on 2.00 high flow O2, will try and test her on lower oxygen dependence today. Bowels still not moving despite miralax and suppository. Lung sounds improving every day. She has been doing well with PT/OT. No new complaints. Denies n/v, fever, chills, cp. Review of Systems General: No Chills, No Night Sweats HEENT: No Head Aches, No Visual Changes Pulmonary: Dyspnea, Cough Cardiovascular: No: Chest Pain, Palpitations Gastrointestinal: No: Nausea, Vomiting Genitourinary: No Dysuria, No Frequency Musculoskeletal: No: neck pain, shoulder pain Neurological: No: Weakness, Numbness Objective Exam Vital Signs Vital Signs - First Documented 08/23/20 08/23/20 10:30 17:42 Temp 36.1 Pulse 75 Resp 16 B/P (MAP) 125/76 (92) Pulse Ox 94 O2 Delivery Nasal Cannula O2 Flow Rate 2.00 Capillary Refill : General Appearance: No Apparent Distress, WD/WN Eyes: Bilateral Eye Normal Inspection, Bilateral Eye PERRL HEENT: PERRL/EOMI, Normal ENT Inspection Neck: Normal Inspection, Supple Respiratory: Rales, Rhonci, Wheezing Cardiovascular: Regular Rate, Rhythm, No Edema Gastrointestinal: Non Tender, Soft Back: Normal Inspection, No CVA Tenderness Extremity: Normal Capillary Refill, Normal Inspection Neurologic/Psychiatric: Alert, Oriented x3, No Motor/Sensory Deficits Skin: Normal Color, Warm/Dry Results Lab Laboratory Tests 08/24/20 05:09: White Blood Count 16.0H, Red Blood Count 3.74L, Hemoglobin 11.5, Hematocrit 34L, Mean Corpuscular Volume 91, Mean Corpuscular Hemoglobin 31, Mean Corpuscular Hemoglobin Concent 34, Red Cell Distribution Width 13.3, Platelet Count 400, Mean Platelet Volume 9.1, Prothrombin Time 22.2H, INR Comment 1.9H, Sodium Level 127L, Potassium Level 4.5, Chloride Level 96L, Carbon Dioxide Level 22, Anion Gap 9, Blood Urea Nitrogen 18, Creatinine 0.78, Estimat Glomerular Filtration Rate > 60, BUN/Creatinine Ratio 23, Glucose Level 102, Calcium Level 9.3, Corre cted Calcium 9.9, Total Bilirubin 0.7, Aspartate Amino Transf (AST/SGOT) 23, Alanine Aminotransferase (ALT/SGPT) 37, Alkaline Phosphatase 68, Total Protein 5.9L, Albumin 3.2 Assessment/Plan Assessment/Plan Assessment and Plan ACUTE RESPIRATORY DISTRESS RIGHT SIDED PNEUMONIA ACUTE URINARY TRACT INFECTION HX DVT WITH PULMONARY EMBOLI DEPRESSION CHRONIC HYPERTENSION NASAL CANAL IRRITATION CONSTIPATION ACUTE RESPIRATORY DISTRESS WITH RIGHT SIDED PNEUMONIA - -O-N- -U-I-J-C-G-J-E-R-M- --- -X-C-Y-T-I-N-U-E- -W-I-T-H- -W-I-B-N-I-N-G- -A-S- -A-B-L-E-.- - IV ANTIBIOTICS OF [place] - REPEAT IMAGING CXR IN MORNING. 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 NASAL CANAL IRRITATION - CONTINUED LUBRICATION OF L NASAL PASSAGE CONSTIPATION - MIRALAX - SSUPPOSITORY BEGIN TO WEAN OFF HIGH FLOW O2 Supervisory-Addendum Brief Verification & Attestation Participated in pt care: history, MDM, physical Personally performed: exam, history, MDM, supervision of care Care discussed with: Medical Student Procedures: n/a Results interpretation: Verified all documentation I AGREE WITH STUDENT NOTE - PT WAS PERSONALLY INTERVIEWED, EXAMINED AND ASSESSMENT AND PLAN DISCUSSED WITH PT IN HER ROOM. DUE TO POOR FECAL OUTPUT, WILL PLAN ON ENEMA'S TODAY. ACUTE RESPIRATORY DISTRESS RIGHT SIDED PNEUMONIA ACUTE URINARY TRACT INFECTION HX DVT WITH PULMONARY EMBOLI DEPRESSION CHRONIC HYPERTENSION ACUTE RESPIRATORY DISTRESS WITH RIGHT SIDED PNEUMONIA ACUTE URINARY TRACT INFECTION HX DVT WITH PULMONARY EMBOLI DEPRESSION CHRONIC HYPERTENSION CLEMENTE CHANCE MED STUDENT Aug 24, 2020 07:55 AJITH PENN MD Aug 25, 2020 08:45
[2020-08-24] MEDS: guaiFENesin (MUCINEX) 600 MG TAB PO SCH ×2 (08:08→20:34)
[2020-08-24] MEDS: MEROPENEM 500 MG in WATER (STERILE) FOR INJECTION 10 ML IV SCH ×2 (08:08→16:33)
[2020-08-24] MEDS: amLODIPine 2.5MG (NORVASC) TAB PO SCH (08:08)
[2020-08-24] MEDS: TIMOLOL MALEATE 0.25% (TIMOPTIC) 5 ML DROPS OU SCH ×2 (08:09→20:33)
--- NOTE | 2020-08-24 11:34 | Occupational Ther Daily Note ---
OT Current Status-Daily Note Subjective Pt seated in recliner, agreeable to OT Tx. Mental Status/Objective Attachments: Oxygen ADL-Treatment Therapy Code Descriptions/Definitions Functional [place] Measure: 0=Not Assessed/NA 4=Minimal Assistance 1=Total Assistance 5=Supervision or Setup 2=Maximal Assistance 6=Modified [place] 3=Moderate Assistance 7=Complete IndependenceSCALE: Activities may be completed with or without assistive devices. 2-Humkzuozmz-ketxmrs completes the activity by him/herself with no assistance from a helper. 5-Set-up or Clean-up Assistance-helper sets up or cleans up; patient completes activity. [place] assists only prior to or following the activity. 4-Supervision or Touching Assistance-helper provides verbal cues and/or touching/steadying and/or contact guard assistance as patient completes acti vity. Assistance may be provided throughout the activity or intermittently. 3-Partial/Moderate Assistance-helper does LESS THAN HALF the effort. [place] lifts, holds or supports trunk or limbs, but provides less than half the effort. 2-Substantial/Maximal Assistance-helper does MORE THAN HALF the effort. [place] lifts or holds trunk or limbs and provides more than half the effort. 1-Lmmujqzhc-ezgzel does ALL the effort. Patient does none of the effort to complete the activity. Or, the assistance of 2 or more helpers is required for the patient to complete the activity. If activity was not attempted, code reason: 7-Patient Refused. 9-Not Applicable-not attempted and the patient did not perform the activity before the current illness, exacerbation or injury. 10-Not Attempted due to Environmental Limitations-(lack of equipment, weather restraints, etc.). 88-Not Attempted due to Medical Conditions or Safety Concerns. Shower/Bathe Self (QC): 4 (Per pt report, pt completed shower with nursing, able to wash/dry all parts with SBA) Other Treatment Pt seated in recliner, agreeable to OT tx. Pt states she just finished taking a shower with nursing staff, washed/dried all parts with SBA. In order to increase BUE strength and activity tolerance, OT educated pt on moderate resistance theraband exercsies. Pt completed 5/5 exercises, with cues for correct technique. Pt completed x10 reps BUE, rest breaks between each exercise. OT instructed pt to complete 3 times a day, increasing reps as tolerated, she verbalized understanding. Post tx, pt seated in recliner, call light in reach, and all needs met. Education OT Patient Education: Correct positioning, Energy conservation, Exercise program, Home exercise program, Modified ADL techniques, Progress toward Goal/Update tx plan, Purpose of tx/functional activities Teaching Recipient: Patient Teaching Methods: Discussion Response to Teaching: Verbalize Understanding OT Fci Goals Fci Goals Time Frame: Sep 01, 2020 Eating (QC): 6 Oral Hygiene (QC): 6 Toileting Hygiene (QC): 6 Shower/Bathe Self (QC): 6 Upper Body Dressing (QC): 6 Lower Body Dressing (QC): 6 On/Off Footwear (QC): 6 Additional Goals: 1-Demonstrate ADL Tasks, 2-Verbalize Understanding, 3- ImproveStrength/Chandu 1=Demonstrate adherence to instructed precautions during ADL tasks. 2=Patient will verbalize/demonstrate understanding of assistive devices/modifications for ADL. 3=Patient will improve strength/tolerance for activity to enable patient to perform ADL's. OT Education/Plan Problem List/Assessment Assessment: Decreased Activ Tolerance, Decreased UE Strength, Impaired I ADL's, Impaired Self-Care Skills Discharge Recommendations Plan/Recommendations: Continue POC Treatment Plan/Plan of Care Patient would benefit from OT for education, treatment and training to promote independence in ADL's, mobility, safety and/or upper extremity function for ADL's. Plan of Care: ADL Retraining, Functional Mobility, UE Funct Exercise/Act Treatment Duration: Sep 01, 2020 Frequency: 5 times per week Estimated Hrs Per Day: .25 hour per day Rehab Potential: Good Time/GCodes Start Time: 10:40 Stop Time: 10:58 Total Time Billed (hr/min): 18 Billed Treatment Time 1, EX ZANDER RODRIGUEZ OT Aug 24, 2020 11:34
--- NOTE | 2020-08-24 11:48 | Physical Therapy Daily Note ---
PT Daily Note-Current Subjective Patient reports she is feeling much better today. Agrees to PT. Mental Status Patient Orientation: Normal For Age Attachments: Oxygen (2L) Transfers SCALE: Activities may be completed with or without assistive devices. 1-Xqpaovecxb-rxhhiuo completes the activity by him/herself with no assistance from a helper. 5-Set-up or Clean-up Assistance-helper sets up or cleans up; patient completes activity. [place] assists only prior to or following the activity. 4-Supervision or Touching Assistance-helper provides verbal cues and/or touching/steadying and/or contact guard assistance as patient completes acti vity. Assistance may be provided throughout the activity or intermittently. 3-Partial/Moderate Assistance-helper does LESS THAN HALF the effort. [place] lifts, holds or supports trunk or limbs, but provides less than half the effort. 2-Substantial/Maximal Assistance-helper does MORE THAN HALF the effort. [place] lifts or holds trunk or limbs and provides more than half the effort. 8-Bddfchnwe-bgkwcv does ALL the effort. Patient does none of the effort to complete the activity. Or, the assistance of 2 or more helpers is required for the patient to complete the activity. If activity was not attempted, code reason: 7-Patient Refused. 9-Not Applicable-not attempted and the patient did not perform the activity before the current illness, exacerbation or injury. 10-Not Attempted due to Environmental Limitations-(lack of equipment, weather restraints, etc.). 88-Not Attempted due to Medical Conditions or Safety Concerns. Sit to Stand (QC): 6 Gait Training Does the Patient Walk?: Yes Distance: 600' Walk 10 feet (QC): 4 Walk 50 ft with 2 Turns(QC): 4 Walk 150 ft (QC): 4 Gait Assistive Device: FWW safe and functional with no deviation Exercises Seated Therapy Exercises: Ankle pumps, Long arc quads, Hip flexion Seated Reps: 15 Assessment Much improved mobility on this date. PT Scientific Publications Editor Goals Halfway Goals PT Halfway Goals Time Frame: September 06, 2020 Roll Left & Right (QC): 6 Sit to Lying (QC): 6 Lying-Sitting on Side/Bed(QC): 6 Sit to Stand (QC): 6 Chair/Gkn-ko-Thvqc Xfer(QC): 5 Toilet Transfer (QC): 5 Car Transfer (QC): 5 Does the Patient Walk: Yes Walk 10 feet (QC): 5 Walk 50ft with 2 Turns (QC): 5 Walk 150 ft (QC): 5 Walking 10ft on Uneven Surface: 5 1 Step (curb) (QC): 4 (SBA) 4 Steps (QC): 4 (SBA) 12 Steps (QC): 9 Picking up an Object (QC): 4 (SBA) Wheel 50 feet with 2 turns (QC: 9 Wheel 150 feet: 9 PT Plan Treatment/Plan Treatment Plan: Continue Plan of Care Treatment Plan: Bed Mobility, Education, Functional Activity Chandu, Functional Strength, Gait, Safety, Therapeutic Exercise, Transfers Treatment Duration: September 06, 2020 Frequency: 6 times per week Estimated Hrs Per Day: .25 hour per day Patient and/or Family Agrees t: Yes Time/GCodes Time In: 1110 Time Out: 1120 Total Billed Treatment Time: 15 Total Billed Treatment 1 visit FA 15 min BRAIN LEROY PT Aug 24, 2020 11:48
[2020-08-24] MEDS: warFARin 3 MG (COUMADIN) TAB PO SCH (17:43)
[2020-08-24 17:57] VITALS: BP 123/63
[2020-08-24] MEDS: polyethylene glycoL POWDER 17 GM (MIRALAX) PACK PO SCH (21:45)
[2020-08-24] MEDS: SENNA W/DOCUSATE (SENOKOT S) TABLET PO SCH (21:45)
[2020-08-25] MEDS: MEROPENEM 500 MG in WATER (STERILE) FOR INJECTION 10 ML IV SCH ×4 (00:30→23:29)
[2020-08-25] MEDS: RT-ALBUTEROL/IPRATROPIUM 3 ML (DUONEB) VIAL INH SCH ×6 (02:48→22:02)
[2020-08-25 06:14] VITALS: BP 150/73
[2020-08-25] MEDS: predniSONE 10 MG TAB PO SCH (06:21)
[2020-08-25] MEDS: amLODIPine 2.5MG (NORVASC) TAB PO SCH (08:31)
[2020-08-25] MEDS: TIMOLOL MALEATE 0.25% (TIMOPTIC) 5 ML DROPS OU SCH ×2 (08:31→21:23)
[2020-08-25] MEDS: SENNA W/DOCUSATE (SENOKOT S) TABLET PO SCH ×2 (08:31→21:23)
[2020-08-25] MEDS: guaiFENesin (MUCINEX) 600 MG TAB PO SCH ×2 (08:31→21:23)
--- NOTE | 2020-08-25 08:49 | Progress Note ---
Subjective Subjective Date Seen by Provider: Aug 25, 2020 Time Seen by Provider: 08:20 PT REPORTS THAT SHE IS FEELING A LITTLE BIT BETTER, HAD A BUSY DAY YESTERDAY WITH A SHOWER AND MULTIPLE ENEMAS WITH MIN/MOD RESULTS. PT'S OXYGEN DROPPED OVERNIGHT AND HAD TO BE PLACED ON 4 LITERS OF OXYGEN TO GET HER UP TO THE MID 90'S. PT DENIES EXCESSIVE SHORTNESS OF BREATH. SHE DOES FEEL FULL IN HER MID TO UPPER ABDOMEN. Review of Systems General: No Chills, No Night Sweats HEENT: No Head Aches, No Visual Changes Pulmonary: Dyspnea, Cough Cardiovascular: No: Chest Pain, Palpitations Gastrointestinal: Abdominal Pain, Constipation; No: Nausea, Vomiting Genitourinary: No Dysuria, No Frequency Musculoskeletal: No: neck pain, shoulder pain Neurological: No: Weakness, Numbness Objective Exam Vital Signs Vital Signs - First Documented 08/23/20 08/23/20 10:30 17:42 Temp 36.1 Pulse 75 Resp 16 B/P (MAP) 125/76 (92) Pulse Ox 94 O2 Delivery Nasal Cannula O2 Flow Rate 2.00 Capillary Refill : General Appearance: No Apparent Distress, WD/WN Eyes: Bilateral Eye Normal Inspection, Bilateral Eye PERRL HEENT: PERRL/EOMI, Normal ENT Inspection Neck: Normal Inspection, Supple Respiratory: Rales, Rhonci (IMPROVED), Wheezing (IMPROVED) Cardiovascular: Regular Rate, Rhythm, No Edema Gastrointestinal: Non Tender, Soft Back: Normal Inspection, No CVA Tenderness Extremity: Normal Capillary Refill, Normal Inspection Neurologic/Psychiatric: Alert, Oriented x3, No Motor/Sensory Deficits Skin: Normal Color, Warm/Dry Assessment/Plan Assessment/Plan Admission Dx ACUTE RESPIRATORY DISTRESS RIGHT SIDED PNEUMONIA ACUTE URINARY TRACT INFECTION HX DVT WITH PULMONARY EMBOLI DEPRESSION CHRONIC HYPERTENSION Assessment and Plan ACUTE RESPIRATORY DISTRESS RIGHT SIDED PNEUMONIA ACUTE URINARY TRACT INFECTION HX DVT WITH PULMONARY EMBOLI DEPRESSION CHRONIC HYPERTENSION ACUTE RESPIRATORY DISTRESS WITH RIGHT SIDED PNEUMONIA - ON OXYGEN - CHANGED FROM HIGH-FLOW TO REGULAR TUBING YESTERDAY - OVERNIGHT WAS ON 4 LITERS DUE TO DROPPING IN THE 80'S, WILL CONTINUE WITH WEANING ABLE. - IV ANTIBIOTICS OF MEROPEN[place] - TO FINISH ON 08/28/2020 - REPEAT IMAGING CXR IN MORNING. 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 DEPRESSION - STABLE - ON HOME REGIMEN, RESUME CHRONIC HYPERTENSION - RESUMED HOME REGIMEN. CONSTIPATION - HAD ENEMA'S YESTERDAY WITH MIN/MOD RESULTS, PT FEELS FULL IN UPPER ABDOMEN, WILL GIVE LACTULOSE TODAY AJITH PENN MD Aug 25, 2020 08:49
--- NOTE | 2020-08-25 10:17 | Physical Therapy Daily Note ---
PT Daily Note-Current Subjective Patient is very agreeable to participate with therapy. Mental Status Patient Orientation: Normal For Age Attachments: Oxygen Transfers SCALE: Activities may be completed with or without assistive devices. 5-Wpkjhhmyjg-lfczeko completes the activity by him/herself with no assistance from a helper. 5-Set-up or Clean-up Assistance-helper sets up or cleans up; patient completes activity. [place] assists only prior to or following the activity. 4-Supervision or Touching Assistance-helper provides verbal cues and/or touching/steadying and/or contact guard assistance as patient completes activity. Assistance may be provided throughout the activity or intermittently. 3-Partial/Moderate Assistance-helper does LESS THAN HALF the effort. [place] lifts, holds or supports trunk or limbs, but provides less than half the effort. 2-Substantial/Maximal Assistance-helper does MORE THAN HALF the effort. [place] lifts or holds trunk or limbs and provides more than half the effort. 7-Ivsajbiqq-xjvjti does ALL the effort. Patient does none of the effort to complete the activity. Or, the assistance of 2 or more helpers is required for the patient to complete the activity. If activity was not attempted, code reason: 7-Patient Refused. 9-Not Applicable-not attempted and the patient did not perform the activity before the current illness, exacerbation or injury. 10-Not Attempted due to Environmental Limitations-(lack of equipment, weather restraints, etc.). 88-Not Attempted due to Medical Conditions or Safety Concerns. Roll Left & Right (QC): 6 Sit to Lying (QC): 6 Lying to Sitting/Side of Bed(Q: 6 Sit to Stand (QC): 6 Chair/Bqb-nz-Wnndg Xfer(QC): 6 Toilet Transfer (QC): 6 Car Transfer (QC): 6 Gait Training Does the Patient Walk?: Yes Distance: 700' Walk 10 feet (QC): 6 Walk 50 ft with 2 Turns(QC): 6 Walk 150 ft (QC): 6 Walking 10ft/uneven surface-QC: 6 Gait Assistive Device: FWW safe and functional with no deviation Wheelchair Training Does the Pt Use a Wheelchair?: No Wheel 50 ft with 2 turns (QC): 9 Wheel 150 ft (QC): 9 Stair Training Stair Training: Handrails/: 2 handrails #of Steps: 4 1 Step (curb) (QC): 6 4 Steps (QC): 6 12 Steps (QC): 9 Stairs: Pattern: Step to Balance Picking up an Object (QC): 6 (seated position) Assessment SAO2 RA 95-97% with during therapy session. PT consulted with RT and RN and patient remains on RA after session. Patient has attained all functional goals at this time. PT Ornament Maker Hand Goals Ornament Maker Hand Goals PT [facility] Goals Time Frame: September 06, 2020 Roll Left & Right (QC): 6 (met 08/25/20) Sit to Lying (QC): 6 (met 08/25/20) Lying-Sitting on Side/Bed(QC): 6 (met 08/25/20) Sit to Stand (QC): 6 (met 08/25/20) Chair/Jvl-on-Mtqne Xfer(QC): 5 (met 08/25/20) Toilet Transfer (QC): 5 (met 08/25/20) Car Transfer (QC): 5 (met 08/25/20) Does the Patient Walk: Yes Walk 10 feet (QC): 5 (met 08/25/20) Walk 50ft with 2 Turns (QC): 5 (met 08/25/20) Walk 150 ft (QC): 5 (met 08/25/20) Walking 10ft on Uneven Surface: 5 (met 08/25/20) 1 Step (curb) (QC): 4 (met 08/25/20) 4 Steps (QC): 4 (met 08/25/20) 12 Steps (QC): 9 (met 08/25/20) Picking up an Object (QC): 4 (met 08/25/20) Wheel 50 feet with 2 turns (QC: 9 (met 08/25/20) Wheel 150 feet: 9 (met 08/25/20) PT Plan Treatment/Plan Treatment Plan: Continue Plan of Care Treatment Plan: Bed Mobility, Education, Functional Activity Chandu, Functional Strength, Gait, Safety, Therapeutic Exercise, Transfers Treatment Duration: September 06, 2020 Frequency: 6 times per week Estimated Hrs Per Day: .25 hour per day Patient and/or Family Agrees t: Yes Time/GCodes Time In: 857 Time Out: 920 Total Billed Treatment Time: 23 Total Billed Treatment 1 visit FA x 2 23 min BRAIN LEROY PT Aug 25, 2020 10:17
[2020-08-25] MEDS: LACTULOSE SYRUP 10GM/15ML (ENULOSE) 30ML UDC PO SCH ×2 (11:02→21:23)
--- NOTE | 2020-08-25 11:48 | Diagnostic Imaging Report ---
INDICATION: Lower respiratory infection PA and lateral chest Heart size and pulmonary vascularity are normal. Lungs are clear. There are no effusions or pneumothoraces. IMPRESSION: Negative chest Dictated by: Dictated on workstation # [id number]
--- NOTE | 2020-08-25 11:57 | Occupational Ther Daily Note ---
OT Current Status-Daily Note Subjective Pt seated in recliner, agreeable to OT tx. Pt declined ADLs on this date, as she is going to have lunch soon. Agreeable to UE exercises. ADL-Treatment Therapy Code Descriptions/Definitions Functional [place] Measure: 0=Not Assessed/NA 4=Minimal Assistance 1=Total Assistance 5=Supervision or Setup 2=Maximal Assistance 6=Modified [place] 3=Moderate Assistance 7=Complete IndependenceSCALE: Activities may be completed with or without assistive devices. 1-Txqymhiezn-tjxpuai completes the activity by him/herself with no assistance from a helper. 5-Set-up or Clean-up Assistance-helper sets up or cleans up; patient completes activity. [place] assists only prior to or following the activity. 4-Supervision or Touching Assistance-helper provides verbal cues and/or touching/steadying and/or contact guard assistance as patient completes activity. Assistance may be provided throughout the activity or intermittently. 3-Partial/Moderate Assistance-helper does LESS THAN HALF the effort. [place] lifts, holds or supports trunk or limbs, but provides less than half the effort. 2-Substantial/Maximal Assistance-helper does MORE THAN HALF the effort. [place] lifts or holds trunk or limbs and provides more than half the effort. 8-Eltjroenw-kvutgx does ALL the effort. Patient does none of the effort to complete the activity. Or, the assistance of 2 or more helpers is required for the patient to complete the activity. If activity was not attempted, code reason: 7-Patient Refused. 9-Not Applicable-not attempted and the patient did not perform the activity before the current illness, exacerbation or injury. 10-Not Attempted due to Environmental Limitations-(lack of equipment, weather restraints, etc.). 88-Not Attempted due to Medical Conditions or Safety Concerns. Other Treatment Pt completed 5/5 UE exercises using moderate resistance theraband. Pt followed written HEP, correctly completing 3/5, requiring skilled cues for correction on 2 exercises. Pt completed x10 reps of each exercise, with rest breaks in between. OT instructed pt to continue completing exercises throughout the day, she verbalize understanding. Post tx, pt seated in recliner, call light in reach and all needs met. Education OT Patient Education: Correct positioning, Energy conservation, Exercise program, Modified ADL techniques, Progress toward Goal/Update tx plan, Purpose of tx/functional activities Teaching Recipient: Patient Teaching Methods: Demonstration, Discussion Response to Teaching: Verbalize Understanding, Return Demonstration OT Bad Credit Collector Goals [facility] Goals Time Frame: Sep 01, 2020 Eating (QC): 6 Oral Hygiene (QC): 6 Toileting Hygiene (QC): 6 Shower/Bathe Self (QC): 6 Upper Body Dressing (QC): 6 Lower Body Dressing (QC): 6 On/Off Footwear (QC): 6 Additional Goals: 1-Demonstrate ADL Tasks, 2-Verbalize Understanding, 3- ImproveStrength/Chandu 1=Demonstrate adherence to instructed precautions during ADL tasks. 2=Patient will verbalize/demonstrate understanding of assistive devices/modifications for ADL. 3=Patient will improve strength/tolerance for activity to enable patient to perform ADL's. OT Education/Plan Problem List/Assessment Assessment: Decreased Activ Tolerance, Decreased UE Strength, Impaired I ADL's Discharge Recommendations Plan/Recommendations: Continue POC Treatment Plan/Plan of Care Patient would benefit from OT for education, treatment and training to promote independence in ADL's, mobility, safety and/or upper extremity function for ADL's. Plan of Care: ADL Retraining, Functional Mobility, UE Funct Exercise/Act Treatment Duration: Sep 01, 2020 Frequency: 5 times per week Estimated Hrs Per Day: .25 hour per day Rehab Potential: Good Time/GCodes Start Time: 11:25 Stop Time: 11:40 Total Time Billed (hr/min): 15 Billed Treatment Time 1, EX ZANDER RODRIGUEZ OT Aug 25, 2020 11:57
[2020-08-25] MEDS: warFARin 3 MG (COUMADIN) TAB PO SCH (17:37)
[2020-08-25 18:30] VITALS: BP 130/78
[2020-08-25] MEDS: polyethylene glycoL POWDER 17 GM (MIRALAX) PACK PO SCH (21:23)
[2020-08-26] MEDS: RT-ALBUTEROL/IPRATROPIUM 3 ML (DUONEB) VIAL INH SCH ×6 (02:23→22:04)
[2020-08-26 05:56] LABS: HEMOGLOBIN 11.9 g/dL (11.5-16.0); MEAN PLATELET VOLUME 9.3 fL (9.0-12.2); WHITE BLOOD COUNT 10.8 10^3/uL (4.3-11.0)
[2020-08-26 06:17] LABS: INR 1.8 (0.8-1.4); PROTHROMBIN TIME PATIENT 21.1 SEC (12.2-14.7)
[2020-08-26 06:20] LABS: ALANINE AMINOTRANSFERASE 33 U/L (0-55); ALBUMIN 3.4 GM/DL (3.2-4.5); ALKALINE PHOSPHATASE 79 U/L (40-136); BILIRUBIN,TOTAL 0.9 MG/DL (0.1-1.0); BUN/CREATININE RATIO 19; CALCIUM 9.4 MG/DL (8.5-10.1); CARBON DIOXIDE 20 MMOL/L (21-32); CHLORIDE 95 MMOL/L (98-107); CREATININE SERUM 0.83 MG/DL (0.60-1.30); GFR ESTIMATED > 60; GLUCOSE 91 MG/DL (70-105); POTASSIUM 4.6 MMOL/L (3.6-5.0); SODIUM 127 MMOL/L (135-145); TOTAL PROTEIN 6.2 GM/DL (6.4-8.2)
[2020-08-26 06:33] VITALS: BP 110/68
[2020-08-26] MEDS: predniSONE 10 MG TAB PO SCH (06:33)
[2020-08-26] MEDS: MEROPENEM 500 MG in WATER (STERILE) FOR INJECTION 10 ML IV SCH ×2 (06:34→16:09)
[2020-08-26] MEDS: amLODIPine 2.5MG (NORVASC) TAB PO SCH (10:41)
[2020-08-26] MEDS: guaiFENesin (MUCINEX) 600 MG TAB PO SCH ×2 (10:41→21:30)
[2020-08-26] MEDS: SENNA W/DOCUSATE (SENOKOT S) TABLET PO SCH ×2 (10:41→21:30)
[2020-08-26] MEDS: LACTULOSE SYRUP 10GM/15ML (ENULOSE) 30ML UDC PO SCH ×2 (10:41→21:30)
[2020-08-26] MEDS: TIMOLOL MALEATE 0.25% (TIMOPTIC) 5 ML DROPS OU SCH ×2 (10:43→21:30)
--- NOTE | 2020-08-26 10:50 | Physical Therapy Daily Note ---
PT Daily Note-Current Subjective Pt. in bed completing breakfast, agrees to therapy. She has no c/o pain. Mental Status Patient Orientation: Person, Place, Time, Situation Transfers SCALE: Activities may be completed with or without assistive devices. 8-Yhrfeaqcep-tkciyzz completes the activity by him/herself with no assistance from a helper. 5-Set-up or Clean-up Assistance-helper sets up or cleans up; patient completes activity. [place] assists only prior to or following the activity. 4-Supervision or Touching Assistance-helper provides verbal cues and/or touching/steadying and/or contact guard assistance as patient completes activity. Assistance may be provided throughout the activity or intermittently. 3-Partial/Moderate Assistance-helper does LESS THAN HALF the effort. [place] lifts, holds or supports trunk or limbs, but provides less than half the effort. 2-Substantial/Maximal Assistance-helper does MORE THAN HALF the effort. [place] lifts or holds trunk or limbs and provides more than half the effort. 4-Cogzlqukq-mmwphh does ALL the effort. Patient does none of the effort to complete the activity. Or, the assistance of 2 or more helpers is required for the patient to complete the activity. If activity was not attempted, code reason: 7-Patient Refused. 9-Not Applicable-not attempted and the patient did not perform the activity before the current illness, exacerbation or injury. 10-Not Attempted due to Environmental Limitations-(lack of equipment, weather restraints, etc.). 88-Not Attempted due to Medical Conditions or Safety Concerns. Lying to Sitting/Side of Bed(Q: 6 Sit to Stand (QC): 6 Toilet Transfer (QC): 6 therapist assist for pericare following BM and donning/doffing briefs Gait Training Does the Patient Walk?: Yes Distance: 450 ft Walk 150 ft (QC): 6 Gait Persons Needed: 1 Gait Assistive Device: FWW Wheelchair Training Does the Pt Use a Wheelchair?: No Treatments toileting and gait training Assessment Current Status: Good Progress Pt. is maintaining (I) with transfers and ambulation in hallways using a FWW. Pt. up in bedside chair post session with call light and all needs met. PT Cloth Sander Goals [facility] Goals PT Cloth Sander Goals Time Frame: September 06, 2020 Roll Left & Right (QC): 6 (met 08/25/20) Sit to Lying (QC): 6 (met 08/25/20) Lying-Sitting on Side/Bed(QC): 6 (met 08/25/20) Sit to Stand (QC): 6 (met 08/25/20) Chair/Djg-lv-Rmplx Xfer(QC): 5 (met 08/25/20) Toilet Transfer (QC): 5 (met 08/25/20) Car Transfer (QC): 5 (met 08/25/20) Does the Patient Walk: Yes Walk 10 feet (QC): 5 (met 08/25/20) Walk 50ft with 2 Turns (QC): 5 (met 08/25/20) Walk 150 ft (QC): 5 (met 08/25/20) Walking 10ft on Uneven Surface: 5 (met 08/25/20) 1 Step (curb) (QC): 4 (met 08/25/20) 4 Steps (QC): 4 (met 08/25/20) 12 Steps (QC): 9 (met 08/25/20) Picking up an Object (QC): 4 (met 08/25/20) Wheel 50 feet with 2 turns (QC: 9 (met 08/25/20) Wheel 150 feet: 9 (met 08/25/20) PT Plan Treatment/Plan Treatment Plan: Continue Plan of Care Treatment Plan: Bed Mobility, Education, Functional Activity Chandu, Functional Strength, Gait, Safety, Therapeutic Exercise, Transfers Treatment Duration: September 06, 2020 Frequency: 6 times per week Estimated Hrs Per Day: .25 hour per day Patient and/or Family Agrees t: Yes Time/GCodes Time In: 815 Time Out: 08 Total Billed Treatment Time: 24 Total Billed Treatment 1, GT 15', FA 9' TREVOR LOREDO PT Aug 26, 2020 10:50
[2020-08-26 17:24] VITALS: BP 112/71
[2020-08-26] MEDS: warFARin 3 MG (COUMADIN) TAB PO SCH (19:30)
[2020-08-26] MEDS: polyethylene glycoL POWDER 17 GM (MIRALAX) PACK PO SCH (21:30)
[2020-08-27] MEDS: MEROPENEM 500 MG in WATER (STERILE) FOR INJECTION 10 ML IV SCH ×3 (00:01→15:50)
[2020-08-27 05:29] VITALS: BP 102/63
[2020-08-27] MEDS: predniSONE 10 MG TAB PO SCH (06:25)
[2020-08-27] MEDS: RT-ALBUTEROL/IPRATROPIUM 3 ML (DUONEB) VIAL INH SCH ×5 (07:19→22:14)
[2020-08-27] MEDS: SENNA W/DOCUSATE (SENOKOT S) TABLET PO SCH ×2 (08:31→20:10)
[2020-08-27] MEDS: guaiFENesin (MUCINEX) 600 MG TAB PO SCH ×2 (08:32→20:14)
[2020-08-27] MEDS: TIMOLOL MALEATE 0.25% (TIMOPTIC) 5 ML DROPS OU SCH ×2 (08:32→20:14)
[2020-08-27] MEDS: LACTULOSE SYRUP 10GM/15ML (ENULOSE) 30ML UDC PO SCH ×2 (08:32→20:10)
[2020-08-27] MEDS: amLODIPine 2.5MG (NORVASC) TAB PO SCH (08:40)
[2020-08-27] MEDS: ACETAMINOPHEN 325 MG TABLET PO PRN (10:50)
[2020-08-27 17:08] VITALS: BP 124/71
[2020-08-27] MEDS: warFARin 3 MG (COUMADIN) TAB PO SCH (17:30)
[2020-08-27] MEDS: polyethylene glycoL POWDER 17 GM (MIRALAX) PACK PO SCH (20:10)
[2020-08-28] MEDS: MEROPENEM 500 MG in WATER (STERILE) FOR INJECTION 10 ML IV SCH ×2 (00:02→08:39)
[2020-08-28] MEDS: RT-ALBUTEROL/IPRATROPIUM 3 ML (DUONEB) VIAL INH SCH ×3 (02:29→09:19)
[2020-08-28 05:39] LABS: HEMOGLOBIN 11.8 g/dL (11.5-16.0); MEAN PLATELET VOLUME 9.8 fL (9.0-12.2); WHITE BLOOD COUNT 8.8 10^3/uL (4.3-11.0)
[2020-08-28 05:44] VITALS: BP 112/56
[2020-08-28] MEDS: predniSONE 10 MG TAB PO SCH (05:47)
[2020-08-28 05:55] LABS: INR 1.5 (0.8-1.4); PROTHROMBIN TIME PATIENT 18.7 SEC (12.2-14.7)
[2020-08-28 06:08] LABS: ALANINE AMINOTRANSFERASE 26 U/L (0-55); ALBUMIN 3.5 GM/DL (3.2-4.5); ALKALINE PHOSPHATASE 76 U/L (40-136); BILIRUBIN,TOTAL 1.1 MG/DL (0.1-1.0); BUN/CREATININE RATIO 17; CALCIUM 9.8 MG/DL (8.5-10.1); CARBON DIOXIDE 23 MMOL/L (21-32); CHLORIDE 95 MMOL/L (98-107); CREATININE SERUM 0.83 MG/DL (0.60-1.30); GFR ESTIMATED > 60; GLUCOSE 88 MG/DL (70-105); POTASSIUM 4.4 MMOL/L (3.6-5.0); SODIUM 127 MMOL/L (135-145); TOTAL PROTEIN 6.3 GM/DL (6.4-8.2)
[2020-08-28 08:14] VITALS: BP 121/70
--- NOTE | 2020-08-28 08:15 | Therapy Team Discharge Summary ---
Therapy Discharge Summary Discharge Recommendations Date of Discharge Physical Therapy Patient is currently at independent PLOF with all gross motor skills and will dismiss to home with home health. Patient ambulates with FWW >600' independently and is on RA with maintaining SAO2 >90%. Patient initially required O2 and SBA to CGA with all mobility due to weakness. Patient has addressed and attained all functional goals. Occupational Therapy Decreased Activ Tolerance, Decreased UE Strength, Impaired I ADL's PT Circle Shear Operator Goals Circle Shear Operator Goals PT Nursing Home Goals Time Frame: September 06, 2020 Roll Left to Right (QC): 6 (met 08/25/20) Sit to Lying (QC): 6 (met 08/25/20) Lying-Sitting on Side/Bed(QC): 6 (met 08/25/20) Sit to Stand (QC): 6 (met 08/25/20) Chair/Ces-tf-Cmwxk Xfer(QC): 5 (met 08/25/20) Car Transfer (QC): 5 (met 08/25/20) Does the Patient Walk: Yes Walk 10 feet (QC): 5 (met 08/25/20) Walk 10ft-Uneven Surface(QC): 5 (met 08/25/20) Walk 50ft with 2 Turns (QC): 5 (met 08/25/20) Walk 150 ft (QC): 5 (met 08/25/20) Wheel 50 feet with 2 turns (QC: 9 (met 08/25/20) 1 Step (curb) (QC): 4 (met 08/25/20) 4 Steps (QC): 4 (met 08/25/20) 12 Steps (QC): 9 (met 08/25/20) Picking up an Object (QC): 4 (met 08/25/20) OT Nursing Home Goals Circle Shear Operator Goals Time Frame: Sep 01, 2020 Eating (QC): 6 Oral Hygiene (QC): 6 Shower/Bathe Self (QC): 6 Upper Body Dressing (QC): 6 Lower Body Dressing (QC): 6 On/Off Footwear (QC): 6 Toileting Hygiene (QC): 6 Toilet/Commode Transfer (QC): 5 (met 08/25/20) Additional Goals: 1-Demonstrate ADL Tasks, 2-Verbalize Understanding, 3-ImproveStrength/Chandu 1=Demonstrate adherence to instructed precautions during ADL tasks. 2=Patient will verbalize/demonstrate understanding of assistive devices/modifications for ADL. 3=Patient will improve strength/tolerance for activity to enable patient to perform ADL's. BRAIN LEROY PT Aug 28, 2020 08:14
--- NOTE | 2020-08-28 08:29 | Occupational Ther Daily Note ---
OT Current Status-Daily Note Subjective Pt laying in bed, agreeable to OT tx. Pt reports she feels ready to d/c home with spouse. Mental Status/Objective Patient Orientation: Person, Place, Time, Situation ADL-Treatment Therapy Code Descriptions/Definitions Functional [place] Measure: 0=Not Assessed/NA 4=Minimal Assistance 1=Total Assistance 5=Supervision or Setup 2=Maximal Assistance 6=Modified [place] 3=Moderate Assistance 7=Complete IndependenceSCALE: Activities may be completed with or without assistive devices. 5-Scqowxgaxl-hkifyzh completes the activity by him/herself with no assistance from a helper. 5-Set-up or Clean-up Assistance-helper sets up or cleans up; patient completes activity. [place] assists only prior to or following the activity. 4-Supervision or Touching Assistance-helper provides verbal cues and/or touching/steadying and/or contact guard assistance as patient completes activity. Assistance may be provided throughout the activity or intermittently. 3-Partial/Moderate Assistance-helper does LESS THAN HALF the effort. [place] lifts, holds or supports trunk or limbs, but provides less than half the effort. 2-Substantial/Maximal Assistance-helper does MORE THAN HALF the effort. [place] lifts or holds trunk or limbs and provides more than half the effort. 0-Ooudcqkjc-tgowyj does ALL the effort. Patient does none of the effort to complete the activity. Or, the assistance of 2 or more helpers is required for the patient to complete the activity. If activity was not attempted, code reason: 7-Patient Refused. 9-Not Applicable-not attempted and the patient did not perform the activity before the current illness, exacerbation or injury. 10-Not Attempted due to Environmental Limitations-(lack of equipment, weather restraints, etc.). 88-Not Attempted due to Medical Conditions or Safety Concerns. Eating (QC): 6 (IND with breakfast) Oral Hygiene (QC): 6 (IND with dentures) Shower/Bathe Self (QC): 5 (set up, pt able to wash/dry all parts) Upper Body Dressing (QC): 6 (IND) Lower Body Dressing (QC): 5 (set up) On/Off Footwear: 6 (IND) Toileting Hygiene (QC): 6 (IND) Toilet Transfer (QC): 6 (IND) Other Treatment Pt transferred supine to sit EOB independently, then used FWW to ambulate into bathroom and onto toilet. Pt completed toileting independently, then stood at sink to wash hands and oral care. Pt declines taking a shower on this date, but agreeable to sponge bath. Pt used FWW to ambulate to recliner, then completed sponge bath and dressing (see above for QC scores). Pt's breakfast arrived, pt IND with eating. Post tx, pt seated in recliner, call light in reach and all needs met. Education OT Patient Education: Correct positioning, Energy conservation, Modified ADL techniques, Progress toward Goal/Update tx plan, Purpose of tx/functional activities, Transfer techniques Teaching Recipient: Patient Teaching Methods: Discussion Response to Teaching: Verbalize Understanding OT [facility] Goals Board Certified Orthodontist Goals Time Frame: Sep 01, 2020 Eating (QC): 6 (met) Oral Hygiene (QC): 6 (met) Toileting Hygiene (QC): 6 (met) Shower/Bathe Self (QC): 6 (not met, set up) Upper Body Dressing (QC): 6 (met) Lower Body Dressing (QC): 6 (not met, set up) On/Off Footwear (QC): 6 (met) Additional Goals: 1-Demonstrate ADL Tasks, 2-Verbalize Understanding, 3- ImproveStrength/Chandu 1=Demonstrate adherence to instructed precautions during ADL tasks. 2=Patient will verbalize/demonstrate understanding of assistive devices/modifications for ADL. 3=Patient will improve strength/tolerance for activity to enable patient to perform ADL's. OT Education/Plan Problem List/Assessment Assessment: Decreased Activ Tolerance, Decreased UE Strength, Impaired I ADL's Discharge Recommendations Plan/Recommendations: Continue POC Treatment Plan/Plan of Care Patient would benefit from OT for education, treatment and training to promote independence in ADL's, mobility, safety and/or upper extremity function for ADL's. Plan of Care: ADL Retraining, Functional Mobility, UE Funct Exercise/Act Treatment Duration: Sep 01, 2020 Frequency: 5 times per week Estimated Hrs Per Day: .25 hour per day Rehab Potential: Good Time/GCodes Start Time: 07:55 Stop Time: 08:20 Total Time Billed (hr/min): 25 Billed Treatment Time 1, ADL 2 ZANDER RODRIGUEZ OT Aug 28, 2020 08:29
[2020-08-28] MEDS: TIMOLOL MALEATE 0.25% (TIMOPTIC) 5 ML DROPS OU SCH (08:40)
[2020-08-28] MEDS: LACTULOSE SYRUP 10GM/15ML (ENULOSE) 30ML UDC PO SCH (08:40)
[2020-08-28] MEDS: guaiFENesin (MUCINEX) 600 MG TAB PO SCH (08:40)
[2020-08-28] MEDS: SENNA W/DOCUSATE (SENOKOT S) TABLET PO SCH (08:41)
[2020-08-28] MEDS: amLODIPine 2.5MG (NORVASC) TAB PO SCH (08:43)
--- NOTE | 2020-08-28 09:03 | Discharge Summary ---
Diagnosis/Chief Complaint Date of Admission Aug 23, 2020 at 09:37 Date of Discharge Discharge Summary Discharge Physical Examination Allergies: Coded Allergies: adhesive tape (Verified Adverse Reaction, Intermediate, 02/01/17) blisters Vitals & I&Os Vital Signs Date Time Temp Pulse Resp B/P (MAP) Pulse Ox O2 Delivery O2 Flow Rate FiO2 08/28/20 08:45 Room Air 08/28/20 08:14 36.3 64 18 121/70 (87) 96 08/25/20 10:28 Hospital Course Pending Labs Laboratory Tests 08/28/20 05:14: White Blood Count 8.8, Red Blood Count 3.92, Hemoglobin 11.8, Hematocrit 36, Mean Corpuscular Volume 91, Mean Corpuscular Hemoglobin 30, Mean Corpuscular Hemoglobin Concent 33, Red Cell Distribution Width 13.6, Platelet Count 303, Mean Platelet Volume 9.8, Prothrombin Time 18.7, INR Comment 1.5, Sodium Level 127, Potassium Level 4.4, Chloride Level 95, Carbon Dioxide Level 23, Anion Gap 9, Blood Urea Nitrogen 14, Creatinine 0.83, Estimat Glomerular Filtration Rate > 60, BUN/Creatinine Ratio 17, Glucose Level 88, Calcium Level 9.8, Corrected Calcium 10.2, Total Bilirubin 1.1, Aspartate Amino Transf (AST/SGOT) 18, Alanine Aminotransferase (ALT/SGPT) 26, Alkaline Phosphatase 76, Total Protein 6.3, Albumin 3.5 Discharge Instructions to patient/family Please see electronic discharge instructions given to patient. Discharge Medications Reviewed and agree with Discharge Medication list on patient's Discharge Instruction sheet AJITH PENN MD Aug 28, 2020 09:03
[2020-08-28] MEDS ORDERED: POLY17PO54 PO (09:05)
[2020-08-28] MEDS ORDERED: GUAI600T43 PO (09:05)
[2020-08-28] MEDS ORDERED: AMLO2.5T4 PO (09:05)
--- NOTE | 2020-08-28 09:06 | Discharge Inst-Simple/Standard ---
Discharge Inst-Standard Reconcile Patient Problems Problems Reviewed?: Yes Discharge Medications New, Converted or Re-Newed RX: Transmitted to Pharmacy Patient Instructions/Follow Up Plan of Care/Instructions/FU: 1 WK FOLLOW UP WITH [facility] WILL START PHYSICAL THERAPY AT [facility] Activity as Tolerated: Yes Discharge Diet: Coumadin Patient Diet Health Concerns: PNEUMONIA HYPERTENSION WEAKNESS Return to The Hospital For: ANY WORSENING OF SHORTNESS OF BREATH, CHEST PAIN OR LIFE THREATENING ILLNESS OR INJURY Medication List: Active Scripts Active Polyethylene Glycol 3350 17 Gm Powd.pack 17 Gm PO HS Mucinex (Guaifenesin) 600 Mg Tab.er.12h 600 Mg PO BID Amlodipine Besylate 2.5 Mg Tablet 2.5 Mg PO DAILY Reported Preservision Areds Tablet (Vit A/Vit C/Vit E/Zinc/Copper) 1 Each Tablet 1 Each PO DAILY Dorzolamide HCl 10 Ml Drops 1 Drop OU BID Combigan Eye Drops (Brimonidine Tartrate/Timolol) 5 Ml Drops 1 Drop OU BID Latanoprost 0.005% Eye Drop (Latanoprost/Pf) 7.5 Ml Drops 1 Drop OU BID Warfarin Sodium 3 Mg Tablet 3 Mg PO HS Cetirizine HCl 10 Mg Tablet 10 Mg PO DAILY Citalopram HBr (Citalopram Hydrobromide) 20 Mg Tablet 20 Mg PO DAILY Atorvastatin Calcium 20 Mg Tablet 20 Mg PO HS Multivitamins (Multivitamin) 1 Each Tablet 1 Tab PO DAILY Lab results: Laboratory Tests Test 08/28/20 05:14 Range/Units White Blood Count 8.8 4.3-11.0 10^3/uL Red Blood Count 3.92 3.80-5.11 10^6/uL Hemoglobin 11.8 11.5-16.0 g/dL Hematocrit 36 35-52 % Mean Corpuscular Volume 91 80-99 fL Mean Corpuscular Hemoglobin 30 25-34 pg Mean Corpuscular Hemoglobin Concent 33 32-36 g/dL Red Cell Distribution Width 13.6 10.0-14.5 % Platelet Count 303 130-400 10^3/uL Mean Platelet Volume 9.8 9.0-12.2 fL Prothrombin Time 18.7 H 12.2-14.7 SEC INR Comment 1.5 H 0.8-1.4 Sodium Level 127 L 135-145 MMOL/L Potassium Level 4.4 3.6-5.0 MMOL/L Chloride Level 95 L 98-107 MMOL/L Carbon Dioxide Level 23 21-32 MMOL/L Anion Gap 9 5-14 MMOL/L Blood Urea Nitrogen 14 7-18 MG/DL Creatinine 0.83 0.60-1.30 MG/DL Estimat Glomerular Filtration Rate > 60 BUN/Creatinine Ratio 17 Glucose Level 88 70-105 MG/DL Calcium Level 9.8 8.5-10.1 MG/DL Corrected Calcium 10.2 H 8.5-10.1 MG/DL Total Bilirubin 1.1 H 0.1-1.0 MG/DL Aspartate Amino Transf (AST/SGOT) 18 5-34 U/L Alanine Aminotransferase (ALT/SGPT) 26 0-55 U/L Alkaline Phosphatase 76 40-136 U/L Total Protein 6.3 L 6.4-8.2 GM/DL Albumin 3.5 3.2-4.5 GM/DL My orders: Orders - AJITH PENN MD Ambulate W/O 02-Home O2 Qual (08/28/20 08:16) Attending Discharge Inpt/Inobs (08/28/20 09:03) AJITH PENN MD Aug 28, 2020 09:06
--- NOTE | 2020-08-28 11:09 | Therapy Team Discharge Summary ---
Therapy Discharge Summary Discharge Recommendations Date of Discharge Occupational Therapy Pt admitted to [facility] status with pneumonia/UTI. At [facility], pt was independent with all ADLs and functional mobility using a walker/cane PRN. At initial evaluation, pt required set up assistance with feeding, set up oral care, min A showering, min A upper body dressing, CGA lower body dressing, SBA footwear and CGA toileting. OT tx focused on increasing BUE strength and activity tolerance, as well as increasing independence and safety with ADLs and functional mobility. At discharge, pt required set up assistance with showering and lower body dressing, and was independent with other ADLs. Pt made good progress towards goals, meeting IND level wtih eating, oral care, upper body dressing, footwear and toileting. Pt to d/c from facility on this date, d/c from OT Decreased Activ Tolerance, Decreased UE Strength, Impaired I ADL's PT Car Wash Supervisor Goals Car Wash Supervisor Goals PT Car Wash Supervisor Goals Time Frame: September 06, 2020 Roll Left to Right (QC): 6 (met 08/25/20) Sit to Lying (QC): 6 (met 08/25/20) Lying-Sitting on Side/Bed(QC): 6 (met 08/25/20) Sit to Stand (QC): 6 (met 08/25/20) Chair/Uds-yo-Wnmrs Xfer(QC): 5 (met 08/25/20) Car Transfer (QC): 5 (met 08/25/20) Does the Patient Walk: Yes Walk 10 feet (QC): 5 (met 08/25/20) Walk 10ft-Uneven Surface(QC): 5 (met 08/25/20) Walk 50ft with 2 Turns (QC): 5 (met 08/25/20) Walk 150 ft (QC): 5 (met 08/25/20) Wheel 50 feet with 2 turns (QC: 9 (met 08/25/20) 1 Step (curb) (QC): 4 (met 08/25/20) 4 Steps (QC): 4 (met 08/25/20) 12 Steps (QC): 9 (met 08/25/20) Picking up an Object (QC): 4 (met 08/25/20) OT Car Wash Supervisor Goals Car Wash Supervisor Goals Time Frame: Sep 01, 2020 Eating (QC): 6 (met) Oral Hygiene (QC): 6 (met) Shower/Bathe Self (QC): 6 (not met, set up) Upper Body Dressing (QC): 6 (met) Lower Body Dressing (QC): 6 (not met, set up) On/Off Footwear (QC): 6 (met) Toileting Hygiene (QC): 6 (met) Toilet/Commode Transfer (QC): 5 (met 08/25/20) Additional Goals: 1-Demonstrate ADL Tasks, 2-Verbalize Understanding, 3- ImproveStrength/Chandu 1=Demonstrate adherence to instructed precautions during ADL tasks. 2=Patient will verbalize/demonstrate understanding of assistive devices/modifications for ADL. 3=Patient will improve strength/tolerance for activity to enable patient to perform ADL's. ZANDER RODRIGUEZ OT Aug 28, 2020 11:09
== END 2020-08-28 11:30 | disposition home health service (06) | DRG 194 ==
LOC: 4TH 08-23 09:37
PROVIDERS: ADMIT Family Medicine; ATTEND Family Medicine
DX: J18.9 Pneumonia, unspecified organism (principal); N39.0 Urinary tract infection, site not specified; F32.9 Major depressive disorder, single episode, unspecified; I10 Essential (primary) hypertension; K59.00 Constipation, unspecified; Z86.718 Personal history of other venous thrombosis and embolism; Z86.711 Personal history of pulmonary embolism; Z79.01 Long term (current) use of anticoagulants
CPT/HCPCS: 36415; 71046; 80053; 85027; 85610; 94640; 94760; 94761

== ENCOUNTER 2020-10-31 09:26 | Outpatient (RCR) | payer MEDICARE ==
[~2020-10-31] VITALS: Ht 167.6 cm; Wt 78.7 kg
[~2020-10-31 09:26] MED LIST changes: +AMLO2.5T4 PO; +GUAI600T43 PO; +POLY17PO54 PO
[2020-11-01] MEDS ORDERED: BRIM5DRO OP (08:40)
[2020-11-01] MEDS ORDERED: VIT1CAPS14 PO (08:40)
[2020-11-03] MEDS ORDERED: PANT40TA2 PO (11:27)
== END 2020-11-01 14:09 | disposition home or self-care (01) ==
LOC: PREOP 09:26
PROVIDERS: ATTEND Surgery
DX: Z01.818 Encounter for other preprocedural examination (principal)

== ENCOUNTER → 2020-11-01 | Outpatient (CLI) | payer MEDICARE ==
[~2020-11-01] MED LIST changes: +BRIM5DRO OP; +PANT40TA2 PO; +VIT1CAPS14 PO
== END ==
LOC: LABNPT 08:39
PROVIDERS: ATTEND Nurse Practitioner Family
DX: Z20.822 Contact with and (suspected) exposure to COVID-19 (principal)
CPT/HCPCS: 87635

== ENCOUNTER 2020-11-03 10:51 | Day surgery (SDC) | payer MEDICARE ==
[~2020-11-03] VITALS: Ht 167.6 cm; Wt 78.7 kg
[2020-11-03] VITALS (11 sets, daily range): BP systolic 95–182; BP diastolic 55–97
[~2020-11-03 10:51] MED LIST changes: -PANT40TA2 PO
[2020-11-03] MEDS ORDERED: NS IV 500 ML 500 ML ONE (10:57)
[2020-11-03] MEDS ORDERED: fentaNYL INJ 100 MCG/2 ML AMP IVP ONE (11:00)
[2020-11-03] MEDS ORDERED: LIDOCAINE JELLY 2% 6 ML SYRINGE MM PRN (11:00)
[2020-11-03] MEDS ORDERED: MIDAZOLAM 5 MG/5 ML (VERSED) VIAL IV ONE (11:00)
[2020-11-03] MEDS ORDERED: HURRICAINE EXT TUBE (BENZOCAINE) XX PRN (11:00)
[2020-11-03] MEDS ORDERED: NS IV 500 ML 500 ML IV PRN (11:00)
--- NOTE | 2020-11-03 11:26 | Conscious Sedation/ASA ---
Conscious Sedation Pre-Proced Time 11:00 ASA Score 2 For ASA 3 and 4: Consider anesthesia and medical clearance. Also, for patients with a history of failed moderate sedation consider anesthesia. Airway Lungs Heart ASA score ASA 1: a normal healthy patient ASA 2: a patient with a mild systemic disease (mid diabetes, controlled hypertension, obesity ASA 3: a patient with a severe systemic disease that limits activity (angina, COPD, prior Myocardial infarction) ASA 4: a patient with an incapacitating disease that is a constant threat to life (CHF, renal failure) ASA 5: a moribund patient not expected to survive 24 hrs. (ruptured aneurysm) ASA 6: a declared brain- patient whose organs are being harvested. For emergent operations, add the letter E after the classification Mallampati Classification Grade 2 Sedation Plan Analgesia, Amnesia, Plan communicated to team members, Discussed options with patient/fam, Discussed risks with patient/fam The patient is an appropriate candidate to undergo the planned procedure, sedation, and anesthesia. The patient immediately re-assessed prior to indication. ALLI ACOSTA MD Nov 03, 2020 11:26
--- NOTE | 2020-11-03 11:26 | Progress Note-Pre Operative ---
Pre-Operative Progress Note H&P Reviewed The H&P was reviewed, patient examined and no changes noted. Date Seen by Provider: Nov 03, 2020 Time Seen by Provider: 11:00 Date H&P Reviewed: Nov 03, 2020 Time H&P Reviewed: 11:00 Pre-Operative Diagnosis: GERD, dysphagia ALLI ACOSTA MD Nov 03, 2020 11:26
[2020-11-03] MEDS ORDERED: PANT40TA2 PO (11:27)
--- NOTE | 2020-11-03 11:28 | Discharge Inst-Surgical ---
D/C Lap Instructions-KIDO New, Converted, or Re-Newed RX: RX on Chart Follow Up Activity as tolerated High Fiber Diet 25g or more per day Avoid Alcohol, Caffeine, Spicy [place] and Acid foods. Drink 64 fluid oz or more of fluids per day. Symptoms to Report: Fever over 101 degree F, Nausea/Vomiting If any problems/questions: Contact your physician or go to Emergency Room ALLI ACOSTA MD Nov 03, 2020 11:28
[2020-11-03] MEDS ORDERED: ONDANSETRON 4 MG/2 ML (SDV) Z0FRAN IVP PRN (11:30)
[2020-11-03] MEDS ORDERED: HYDROcodone/APAP 5 MG/325 MG (LORTAB) TAB PO PRN (11:30)
[2020-11-03] MEDS ORDERED: morphine INJ 10 MG/ML 1ML (SYR OR VIAL) IVP PRN ×2 (11:30)
[2020-11-03] MEDS ORDERED: ACETAMINOPHEN 325 MG TABLET PO PRN (11:30)
--- NOTE | 2020-11-03 13:06 | Progress Note-Post Operative ---
Post-Operative Progess Note Surgeon (s)/Compliance Investigator (s) Surgeon ALLI ACOSTA MD Compliance Investigator: none Pre-Operative Diagnosis GERD, dysphagia Post-Operative Diagnosis reflux esophagitis(stage 2-3), mild distal esophageal stricture, moderate HH(3-4cm), moderate gastritis. Procedure & Operative Findings Date of Procedure 11/03/20 Procedure Performed/Findings EGD with bx and balloon dilatation. Anesthesia Type cs Estimated Blood Loss Estimated blood loss (mL): minimal Specimens/Packing Specimens Removed ge jxn, antrum ALLI ACOSTA MD Nov 03, 2020 13:06
--- NOTE | 2020-11-03 16:02 | OPERATIVE REPORT ---
DATE OF SERVICE: 11/03/2020 ATTENDING PRIMARY CARE PHYSICIAN: Rebeca Mckeon MD PREOPERATIVE DIAGNOSES: Gastroesophageal reflux disease and dysphagia. POSTOPERATIVE DIAGNOSES: Reflux esophagitis between stage II and III, mild distal esophageal stricture, moderate size hiatal hernia approximately 3 to 4 cm in size. Moderate gastritis. PROCEDURE: EGD with biopsy and balloon dilatation. SURGEON: Alli Acosta MD. ANESTHESIA: Conscious sedation. ESTIMATED BLOOD LOSS: Minimal. FINDINGS: Reflux esophagitis between stage II and III, mild distal esophageal stricture, moderate size hiatal hernia approximately 3 to 4 cm in size. Moderate gastritis. DISPOSITION: The patient tolerated the procedure well. INDICATIONS: The patient is an 85-year-old female known to us. We had seen her in 2016 for acute diverticulitis. At that time, a CT scan did show adjacent abscess as well as an ileus and Interventional radiology had proceeded with drain placement as well as conservative therapy with IV antibiotics. She reports that she has had episodes of coughing after taking in food bolus as well as a pressure sensation in the substernal region as well. She states that sometimes that this would eventually go down; however, she also will have some issues with regurgitation. She does not report any hematemesis, no coffee-ground emesis. She is currently not on any acid reducers. DESCRIPTION OF PROCEDURE: The patient was brought to the endoscopy suite, laid in the left lateral decubitus position. After adequate IV pain and sedative medications and conscious sedation anesthesia, the mouthpiece was applied. The endoscope was placed in the mouth, visualizing the pharynx and hypopharyngeal region. Vocal cords, epiglottis and vallecula identified and appeared to be normal. The endoscope was then gently intubated. Esophageal opening and esophagus insufflated. The endoscope was then advanced to the first, second and third portion of esophagus at the level of the GE junction, a reflux esophagitis between stage II and III identified as well as a mild distal esophageal stricture and Schatzki's ring. A biopsy was taken with forceps with visualization of good hemostasis. The endoscope was then advanced in the stomach. The endoscope retroflexed, visualizing a significant size hiatal hernia approximately 3 to 4 cm in size. There was a moderate severity gastritis more towards the distal body and antrum of the stomach. No formal ulcerations, polyps, or any neoplasms. A biopsy was taken of the antrum to rule out H. pylori with visualization of good hemostasis. The endoscope was then advanced to the pylorus and the first and second portions of the duodenum, which appeared normal with no distal obstructions. The balloon was then placed into the stomach and pulled back to the area of the stricture. We then proceeded integrated stepwise fashion to 4, then 6 atmospheres of pressure with 20 mm in luminal diameter with moderate resistance and left this in place for 60 seconds. The balloon was then desufflated and removed with visualization of good hemostasis as well as no mucosal tears. Endoscope was then slowly withdrawn while taking a second look and suctioning of residual air with no additional findings. The patient tolerated the procedure well. We will recommend conservative medical therapy for her reflux esophagitis and hiatal hernia with the necessary lifestyle and diet accommodation, which would include small and more frequent meals, avoidance of eating at night as well as head elevation while lying supine. She also needs to avoid caffeinated beverages, spicy, greasy and acidic foods. We will also start her on Protonix 40 mg daily. 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
== END 2020-11-03 13:55 | disposition home or self-care (01) ==
LOC: ENDO 10:51
PROVIDERS: ATTEND Surgery
DX: K29.50 Unspecified chronic gastritis without bleeding (principal); K44.9 Diaphragmatic hernia without obstruction or gangrene; K21.00 Gastro-esophageal reflux disease with esophagitis, without bleeding; K22.2 Esophageal obstruction; E78.00 Pure hypercholesterolemia, unspecified; F32.9 Major depressive disorder, single episode, unspecified; I10 Essential (primary) hypertension; J18.9 Pneumonia, unspecified organism; Z90.89 Acquired absence of other organs; Z79.899 Other long term (current) drug therapy; Z79.01 Long term (current) use of anticoagulants; Z86.711 Personal history of pulmonary embolism; Z80.0 Family history of malignant neoplasm of digestive organs; Z91.048 Other nonmedicinal substance allergy status

== ENCOUNTER → 2021-04-19 | Outpatient (CLI) | payer MEDICARE ==
[~2021-04-19] MED LIST changes: +PANT40TA2 PO
--- NOTE | 2021-04-19 12:00 | Diagnostic Imaging Report ---
Indication: Routine screening. Comparison is made with prior mammogram 04/05/2020 and 03/09/2019. 2-D and 3-D bilateral screening mammography was performed with CAD. Both breasts are heterogeneously dense, limiting the sensitivity of mammography. There are scattered benign calcifications. No dominant mass or malignant-appearing microcalcifications are seen. Axillae are unremarkable. IMPRESSION: BI-RADS Category 2 No mammographic features suspicious for malignancy are identified. ACR BI-RADS Category 2: Benign findings. Result letter will be mailed to the patient. Note: At least 10% of breast cancer is not imaged by mammography. Dictated by: Dictated on workstation # [id number]
== END ==
LOC: RAD 10:45
PROVIDERS: ATTEND Family Medicine
DX: Z12.31 Encounter for screening mammogram for malignant neoplasm of breast (principal)
CPT/HCPCS: 77063; 77067

== ENCOUNTER → 2022-04-23 | Outpatient (CLI) | payer MEDICARE ==
--- NOTE | 2022-04-23 15:41 | Diagnostic Imaging Report ---
INDICATION: Routine screening. COMPARISON: 04/19/2021 and 04/05/2020. TECHNIQUE: 2D and 3D bilateral screening mammography was performed with CAD. FINDINGS: Both breasts are heterogeneously dense, limiting the sensitivity of mammography. There are benign calcifications bilaterally. No mass or malignant-appearing microcalcifications are seen. The axillae are unremarkable. IMPRESSION: No mammographic features suspicious for malignancy are identified. ACR BI-RADS Category 2: Benign findings. Result letter will be mailed to the patient. Note: At least 10% of breast cancer is not imaged by mammography. Dictated by: Dictated on workstation # [id number]
== END ==
LOC: RAD 10:00
PROVIDERS: ATTEND Family Medicine
DX: Z12.31 Encounter for screening mammogram for malignant neoplasm of breast (principal)
CPT/HCPCS: 77063; 77067